=== PATIENT | male | born 1965 | race Asian ===

== ENCOUNTER 2020-04-27 08:20 | Day surgery (SDC) | payer SELFPAY ==
[2020-04-27] MEDS ORDERED: propofoL 200 MG/20 ML VIAL ONE (08:53)
[2020-04-27] MEDS ORDERED: LIDOCAINE 2% 100MG/5ML SDV (FOR ANES.) ONE (08:53)
--- NOTE | 2020-06-02 11:33 | ROOR ---
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 Inpatient 2. Inpatient Requesting Provider: Medicines: Monitored Anesthesia Care Complications: No immediate complications. Procedure: Pre-Anesthesia Assessment: - The heart rate, respiratory rate, oxygen saturations, blood pressure, adequacy of pulmonary ventilation, and response to care were monitored throughout the procedure. The Endoscope was introduced through the mouth, and advanced to the second part of duodenum. The upper GI endoscopy was accomplished without difficulty. The patient tolerated the procedure well. Findings: The examined esophagus was normal. The entire examined stomach was normal. One non-obstructing non-bleeding cratered duodenal ulcer with pigmented material was found in the second portion of the duodenum. The lesion was 10 mm in largest dimension. There is no evidence of perforation. This was biopsied with a cold forceps for histology. Impression: - Normal esophagus. - Normal stomach. - Large deeply cratered Non-obstructing non-bleeding duodenal ulcer with pigmented material/stigmata of recent bleeding. There is no evidence of perforation. Biopsied. - (metallic spiral wire protruding from center of ulcer bed--History or recent endovascular ablation of this ulcer) Recommendation: - Use a proton pump inhibitor PO daily indefinitely. - (Pt with previous lifethreatening complication of ulcer diasease/DU bleed--He should be on PPI therapy indefinitely, unless has allergies/intolerance. Less desirable: Use High dose [id number] BID-TID). - Await pathology results. George Diaz MD George DIAZ MD 04/27/2020 3:40:55 PM Number of Addenda: 0 Note Initiated On: 04/27/2020 3:15 PM Estimated Blood Loss: Estimated blood loss: none.
--- NOTE | 2020-06-02 11:33 | ROOR ---
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 Procedure: Pre-Anesthesia Assessment: - The heart rate, respiratory rate, oxygen saturations, blood pressure, adequacy of pulmonary ventilation, and response to care were monitored throughout the procedure. The Colonoscope was introduced through the anus and advanced to the terminal ileum, with identification of the appendiceal orifice and IC valve. The colonoscopy was performed without difficulty. The patient tolerated the procedure well. The quality of the bowel preparation was good. Findings: The perianal and digital rectal examinations were normal. A diffuse area of mild melanosis was found in the entire colon. Eight sessile polyps were found in the sigmoid colon, descending colon and splenic flexure. The polyps were small in size. These polyps were removed with a cold snare. Resection and retrieval were complete. Internal hemorrhoids were found during retroflexion. The hemorrhoids were moderate. The exam was otherwise without abnormality on direct and retroflexion views. Impression: - Melanosis in the colon. - Eight small polyps in the sigmoid colon, in the descending colon and at the splenic flexure, removed with a cold snare. Resected and retrieved. - Internal hemorrhoids. - The examination was otherwise normal on direct and retroflexion views. Recommendation: - Repeat colonoscopy in 3 years for surveillance. - Telephone endoscopist for pathology results in 2 weeks. George PORTILLO MD 04/27/2020 9:36:59 AM Number of Addenda: 0 Note Initiated On: 04/27/2020 7:33 AM Estimated Blood Loss: Estimated blood loss: none.
== END 2020-04-27 10:25 | disposition home or self-care (01) ==
LOC: M SDC 08:20
PROVIDERS: ATTEND Internal Medicine Gastroenterology
DX: D12.4 Benign neoplasm of descending colon (principal); D12.5 Benign neoplasm of sigmoid colon; K92.1 Melena; D62 Acute posthemorrhagic anemia; Z79.899 Other long term (current) drug therapy; Z91.013 Allergy to seafood; Z91.041 Radiographic dye allergy status

== ENCOUNTER 2020-10-29 12:53 | Emergency (ER) | payer OTHER, SELFPAY ==
[~2020-10-29] VITALS: Ht 162.6 cm; Wt 81.8 kg
[2020-10-29] MEDS ORDERED: TIZA4CAP PO (13:13)
[2020-10-29] MEDS ORDERED: ACET-683 PO (13:13)
[2020-10-29] MEDS ORDERED: TRAZ1TAB11 PO ×2 (13:13)
--- NOTE | 2020-10-29 13:35 | REP ---
INDICATION: CHEST PAIN COMPARISON: None. TECHNIQUE: PA/Lateral FINDINGS: Lungs: Clear, no infiltrate. Heart: Normal in size. Mediastinum: Mediastinal silhouette unremarkable. Pleural angles: Unremarkable.. Bones and soft tissues: There are degenerative changes of the spine without compression deformity. There is mild elevation of the right hemidiaphragm. IMPRESSION: No acute pulmonary disease. <Electronically signed by Gilbert Dill > 10/29/20 [id number]
[2020-10-29 13:53] LABS: BASO # 0.1 10^3/uL (0.0-0.2); BASO % 0.5 % (0.0-1.0); EOS # 0.1 10^3/uL (0.0-0.5); EOS % 0.7 % (0.0-3.0); HEMATOCRIT 47.7 % (42.0-52.0); HEMOGLOBIN 16.2 g/dl (13.5-17.5); LYMPH # 0.9 10^3/uL (1.5-5.0); MEAN CORPUSCULAR HEMOGLOBIN 30.8 pg (27.0-33.0); MEAN CORPUSCULAR VOLUME 90.7 fl (80.0-96.0); MONO # 0.7 10^3/uL (0.0-0.8); MONO % 5.9 % (0.0-5.0); NEUTROPHILS # 9.8 10^3/uL (1.5-8.5); NEUTROPHILS % 84.6 % (36.0-66.0); PLATELET COUNT, AUTOMATED 281 10^3/uL (150-450); RED BLOOD COUNT 5.26 10^6/uL (4.30-6.10); WHITE BLOOD COUNT 11.5 10^3/uL (4.0-10.0)
[2020-10-29 14:03] LABS: INR 0.88; PROTHROMBIN TIME 12.1 SECONDS (12.5-14.3)
[2020-10-29 14:04] LABS: PARTIAL THROMBOPLASTIN TIME 33.5 SECONDS (24.2-38.5)
[2020-10-29 14:26] LABS: ALBUMIN 4.1 GM/DL (3.2-5.2); ALT/SGPT 86 U/L (12-78); BILIRUBIN,DIRECT < 0.1 MG/DL (0.0-0.2); BILIRUBIN,TOTAL 0.4 MG/DL (0.2-1.0); BLOOD UREA NITROGEN 15 MG/DL (7-18); CALCIUM LEVEL 9.1 MG/DL (8.5-10.1); CARBON DIOXIDE LEVEL 24 MEQ/L (21-32); CHLORIDE LEVEL 105 MEQ/L (98-107); CK-MB VALUE MASS 2.2 NG/ML (<3.6); CPK CREATINE PHOSPHOKINASE 3986 U/L (39-308); CREATININE FOR GFR 0.79 MG/DL (0.70-1.30); FREE T4 0.92 NG/DL (0.76-1.46); GLOMERULAR FILTRATION RATE > 60.0 (>56); GLUCOSE, FASTING 114 MG/DL (70-100); LIPASE 163 U/L (73-393); MB/CK RELATIVE INDEX 0.06 (< OR =4); SODIUM LEVEL 138 MEQ/L (136-145); TOTAL PROTEIN 7.2 GM/DL (6.4-8.2); TROPONIN I < 0.02 NG/ML (< 0.10)
[2020-10-29] MEDS ORDERED: GI COCKTAIL 50ML BTL(HYOSCYAMINE/MAALOX/LIDOCAINE VISCOUS)(1:3:1) PO ONE (15:00)
[2020-10-29] MEDS ORDERED: NS 1,000 ML IV ONE (15:00)
--- OUTSIDE RECORDS SUMMARY | 2020-10-29 15:48 | CCD ---
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 Active Not available meloxicam 15 mg tablet Take 1 tablet every day by oral route. Active Not available tizanidine one tablet by mouth Completed 05/29/2019 trazodone 50 mg tablet Take 1.5 tablets every day by oral route. Active Not available Tylenol 325 mg tablet Take 2 tablets 3 times a day by oral route as needed. Active Not available Zanaflex 4 mg tablet Take 1 tablet every 8 hours by oral route as needed. Active Not available Problems None recorded. Procedures Date Name Performed by Stomach Ulcer Excision Information not a vailable 12/31/2019 XR, Thoracic Spine [facility] [address] [place] [address] (Work [address]) 04/06/2020 MRI, Thoracic Spine, W/o Contrast [facility] [address] [place] [address] (Work Place) Results Lab Results None recorded. Past Encounters 08/10/2020 Lumbar Radiculopathy; Degeneration of Lumbar Intervertebral Disc; Degeneration of Lumbosacral Intervertebral Disc; Displacement of Lumbar Intervertebral Disc without Myelopathy; Intervertebral Disc Disorder; Spondylosis without Myelopathy; Lumbosacral Spondylosis without Myelopathy; Myofascial Pain; Pain in Thoracic Spine; Thoracic Radiculopathy; Thoracic Spondylosis without Myelopathy Christine Serna [employer]: [address], [place] [address], Ph. 07/29/2020 Lumbosacral Spondylosis without Myelopathy; Spondylosis without Myelopathy; Degeneration of Lumbar Intervertebral Disc; Degeneration of Lumbosacral Intervertebral Disc; Displacement of Lumbar Intervertebral Disc without Myelopathy; Lumbar Radiculopathy; Intervertebral Disc Disorder; Myofascial Pain; Pain in Thoracic Spine; Thoracic Radiculopathy; Thoracic Spondylosis without Myelopathy Pepito Griffiths MD: [id number] [address], Ph. 07/15/2020 Thoracic Spondylosis without Myelopathy; Lumbar Radiculopathy; Degeneration of Lumbar Intervertebral Disc; Degeneration of Lumbosacral Intervertebral Disc; Displacement of Lumbar Intervertebral Disc without Myelopathy; Intervertebral Disc Disorder; Spondylosis without Myelopathy; Lumbosacral Spondylosis without Myelopathy; Myofascial Pain; Thoracic Radiculopathy Pepito Griffiths MD: [id number] [address], Ph. 07/01/2020 Lumbosacral Spondylosis without Myelopathy; Spondylosis without Myelopathy; Degeneration of Lumbar Intervertebral Disc; Degeneration of Lumbosacral Intervertebral Disc; Displacement of Lumbar Intervertebral Disc without Myelopathy; Lumbar Radiculopathy; Intervertebral Disc Disorder; Myofascial Pain; Pain in Thoracic Spine; Thoracic Radiculopathy; Thoracic Spondylosis without Myelopathy Pepito Griffiths MD: [address] [address], Ph. 06/24/2020 Lumbar Radiculopathy; Degeneration of Lumbar Intervertebral Disc; Degeneration of Lumbosacral Intervertebral Disc; Displacement of Lumbar Intervertebral Disc without Myelopathy; Intervertebral Disc Disorder; Spondylosis without Myelopathy; Lumbosacral Spondylosis without Myelopathy; Myofascial Pain; Pain in Thoracic Spine; Thoracic Radiculopathy; Thoracic Spondylosis without Myelopathy Christine Serna NP: [id number] [address], [place] [address], Ph. 05/13/2020 Lumbar Radiculopathy; Degeneration of Lumbar Intervertebral Disc; Degeneration of Lumbosacral Intervertebral Disc; Displacement of Lumbar Intervertebral Disc without Myelopathy; Intervertebral Disc Disorder; Spondylosis without Myelopathy; Lumbosacral Spondylosis without Myelopathy; Myofascial Pain; Pain in Thoracic Spine; Thoracic Radiculopathy; Thoracic Spondylosis without Myelopathy Christine Serna, [employer]: [address] [address], Ph. 04/28/2020 Thoracic Spondylosis without Myelopathy; Lumbar Radiculopathy; Degeneration of Lumbar Intervertebral Disc; Degeneration of Lumbosacral Intervertebral Disc; Displacement of Lumbar Intervertebral Disc without Myelopathy; Intervertebral Disc Disorder; Spondylosis without Myelopathy; Lumbosacral Spondylosis without Myelopathy; Myofascial Pain; Thoracic Radiculopathy Pepito Griffiths MD: [address] [address], Ph. 04/06/2020 Lumbar Radiculopathy; Degeneration of Lumbar Intervertebral Disc; Degeneration of Lumbosacral Intervertebral Disc; Displacement of Lumbar Intervertebral Disc without Myelopathy; Intervertebral Disc Disorder; Spondylosis without Myelopathy; Lumbosacral Spondylosis without Myelopathy; Myofascial Pain; Pain in Thoracic Spine; Thoracic Radiculopathy; Thoracic Spondylosis without Myelopathy Christine Doddlaura, [employer]: [address] [address], Ph. 03/23/2020 Myofascial Pain; Lumbar Radiculopathy; Degeneration of Lumbar Intervertebral Disc; Degeneration of Lumbosacral Intervertebral Disc; Displacement of Lumbar Intervertebral Disc without Myelopathy; Intervertebral Disc Disorder; Spondylosis without Myelopathy; Lumbosacral Spondylosis without Myelopathy; Pain in Thoracic Spine; Degeneration of Thoracic Intervertebral Disc; Thoracic Spondylosis without Myelopathy Pepito Griffiths MD: [id number] [address], [place] [address], Ph. 01/14/2020 Lumbar Radiculopathy; Degeneration of Lumbar Intervertebral Disc; Degeneration of Lumbosacral Intervertebral Disc; Displacement of Lumbar Intervertebral Disc without Myelopathy; Intervertebral Disc Disorder; Spondylosis without Myelopathy; Lumbosacral Spondylosis without Myelopathy; Myofascial Pain; Pain in Thoracic Spine Christine Serna, [employer]: [id number] [address], Ph. 12/31/2019 Lumbar Radiculopathy; Degeneration of Lumbar Intervertebral Disc; Degeneration of Lumbosacral Intervertebral Disc; Displacement of Lumbar Intervertebral Disc without Myelopathy; Intervertebral Disc Disorder; Spondylosis without Myelopathy; Lumbosacral Spondylosis without Myelopathy; Myofascial Pain; Pain in Thoracic Spine Christine Serna, [employer]: [id number] [address], Ph. 11/25/2019 Myofascial Pain; Lumbar Radiculopathy; Degeneration of Lumbar Intervertebral Disc; Degeneration of Lumbosacral Intervertebral Disc; Displacement of Lumbar Intervertebral Disc without Myelopathy; Intervertebral Disc Disorder; Spondylosis without Myelopathy; Lumbosacral Spondylosis without Myelopathy Pepito Griffiths MD: [id number] [address], Ph. 10/28/2019 Lumbar Radiculopathy; Degeneration of Lumbar Intervertebral Disc; Degeneration of Lumbosacral Intervertebral Disc; Displacement of Lumbar Intervertebral Disc without Myelopathy; Intervertebral Disc Disorder; Spondylosis without Myelopathy; Lumbosacral Spondylosis without Myelopathy; Myofascial Pain Christienmisael Serna, [employer]: [address] [address], Ph. 09/30/2019 Lumbar Radiculopathy; Degeneration of Lumbar Intervertebral Disc; Degeneration of Lumbosacral Intervertebral Disc; Displacement of Lumbar Intervertebral Disc without Myelopathy; Intervertebral Disc Disorder; Spondylosis without Myelopathy; Lumbosacral Spondylosis without Myelopathy; Myofascial Pain Pepito Griffiths MD: [address] [address], Ph. 09/09/2019 Lumbar Radiculopathy; Degeneration of Lumbar Intervertebral Disc; Degeneration of Lumbosacral Intervertebral Disc; Displacement of Lumbar Intervertebral Disc without Myelopathy; Intervertebral Disc Disorder; Spondylosis without Myelopathy; Lumbosacral Spondylosis without Myelopathy; Myofascial Pain Christine Serna, [employer]: [address] [address], Ph. 07/29/2019 Lumbar Radiculopathy; Degeneration of Lumbar Intervertebral Disc; Degeneration of Lumbosacral Intervertebral Disc; Displacement of Lumbar Intervertebral Disc without Myelopathy; Intervertebral Disc Disorder; Spondylosis without Myelopathy; Lumbosacral Spondylosis without Myelopathy; Myofascial Pain Pepito Griffiths MD: [id number] [address], Ph. 07/02/2019 Lumbar Radiculopathy; Degeneration of Lumbar Intervertebral Disc; Degeneration of Lumbosacral Intervertebral Disc; Displacement of Lumbar Intervertebral Disc without Myelopathy; Intervertebral Disc Disorder; Spondylosis without Myelopathy; Lumbosacral Spondylosis without Myelopathy; Myofascial Pain Christine Serna, [employer]: [address] [address], Ph. 06/12/2019 Lumbar Radiculopathy; Degeneration of Lumbar Intervertebral Disc; Degeneration of Lumbosacral Intervertebral Disc; Displacement of Lumbar Intervertebral Disc without Myelopathy; Intervertebral Disc Disorder; Spondylosis without Myelopathy; Lumbosacral Spondylosis without Myelopathy Pepito Griffiths MD: [id number] [address], [place] [address], Ph. 05/29/2019 Lumbar Radiculopathy; Degeneration of Lumbar Intervertebral Disc; Degeneration of Lumbosacral Intervertebral Disc; Displacement of Lumbar Intervertebral Disc without Myelopathy; Intervertebral Disc Disorder; Spondylosis without Myelopathy; Lumbosacral Spondylosis without Myelopathy Pepito Griffiths MD: [address] [address], Ph. 05/14/2019 Lumbar Radiculopathy; Degeneration of Lumbar Intervertebral Disc; Degeneration of Lumbosacral Intervertebral Disc; Displacement of Lumbar Intervertebral Disc without Myelopathy; Intervertebral Disc Disorder; Spondylosis without Myelopathy; Lumbosacral Spondylosis without Myelopathy Pepito Griffiths MD: [id number] [facility] [address], [facility] [place] [address], Ph. 04/29/2019 Lumbar Radiculopathy; Degeneration of Lumbar Intervertebral Disc; Degeneration of Lumbosacral Intervertebral Disc; Displacement of Lumbar Intervertebral Disc without Myelopathy; Intervertebral Disc Disorder; Spondylosis without Myelopathy; Lumbosacral Spondylosis without Myelopathy Pepito Griffiths MD: [id number] [facility] [address], [facility] [place] [address], Ph. Social History Tobacco Smoking Status Former Smoker Notes: quit 1996 Vaccine List None recorded. Plan of Care Reminders Provider Appointments None recorded. Lab None recorded. Referral None recorded. Procedures None recorded. Surgeries None recorded. Imaging None recorded. Vitals 08/10/2020 04:15PM FOLLOW-UP Height Blood Pressure 5 ft 4 in 153/99 mm[Hg] 06/24/2020 04:00PM FOLLOW-UP Height Blood Pressure 5 ft 4 in 134/89 mm[Hg] 05/13/2020 04:00PM FOLLOW-UP Height Blood Pressure 5 ft 4 in 134/90 mm[Hg] 04/06/2020 04:00PM FOLLOW-UP Height Blood Pressure 5 ft 4 in 122/82 mm[Hg] 03/23/2020 03:00PM Trigger point injections Height 5 ft 4 in 01/14/2020 04:30PM FOLLOW-UP Height Weight BMI Blood Pressure 5 ft 4 in 187 lbs 32.1 kg/m2 118/84 mm[Hg] 12/31/2019 04:15PM Telehealth Height 5 ft 4 in 10/28/2019 04:30PM FOLLOW-UP Height Blood Pressure 5 ft 4 in 157/84 mm[Hg] 09/09/2019 04:30PM FOLLOW-UP Height Weight BMI Blood Pressure 5 ft 4 in 187 lbs 32.1 kg/m2 134/81 mm[Hg] 07/02/2019 04:00PM FOLLOW-UP Height Blood Pressure 5 ft 4 in 138/94 mm[Hg] 04/29/2019 11:30AM NEW PATIENT Height Weight BMI Blood Pressure 5 ft 4 in 187 lbs 32.1 kg/m2 123/79 mm[Hg]
--- OUTSIDE RECORDS SUMMARY | 2020-10-29 15:48 | CCD ---
Author Organization Unknown Address [address] [place] [address] Phone [phone] Care Team Providers Care Barrel Centerer Name Role Phone [facility] 3 [phone] Allergies Code Code System Name Reaction [...] not a vailable 12/31/2019 XR, Thoracic Spine [facility] [address] [place] [address] (Work Place) 04/06/2020 MRI, Thoracic Spine, W/o Contrast [facility] [address] [place] [address] (Work Place) Results Lab Results None recorded. Past Encounters 08/26/2020 Lumbosacral Spondylosis without Myelopathy; Spondylosis without Myelopathy; Degeneration of Lumbar Intervertebral Disc; Degeneration of Lumbosacral Intervertebral Disc; Displacement of Lumbar Intervertebral Disc without Myelopathy; Intervertebral Disc Disorder; Lumbar Radiculopathy; Myofascial Pain; Pain in Thoracic Spine; Thoracic Radiculopathy; Thoracic Spondylosis without Myelopathy Pepito Griffiths MD: [address] [address], [place] [address], Ph. 08/17/2020 Myofascial Pain; Lumbar Radiculopathy; Degeneration of Lumbar Intervertebral Disc; Degeneration of Lumbosacral Intervertebral Disc; Displacement of Lumbar Intervertebral Disc without Myelopathy; Intervertebral Disc Disorder; Spondylosis without Myelopathy; Lumbosacral Spondylosis without Myelopathy; Pain in Thoracic Spine; Thoracic Radiculopathy; Thoracic Spondylosis without Myelopathy Pepito Griffiths MD: [id number] [address], Ph. 08/10/2020 Lumbar Radiculopathy; Degeneration of Lumbar Intervertebral Disc; Degeneration of Lumbosacral Intervertebral Disc; Displacement of Lumbar Intervertebral Disc without Myelopathy; Intervertebral Disc Disorder; Spondylosis without Myelopathy; Lumbosacral Spondylosis without Myelopathy; Myofascial Pain; Pain in Thoracic Spine; Thoracic Radiculopathy; Thoracic Spondylosis without Myelopathy Christine Serna NP: [id number] [address], Ph. 07/29/2020 Lumbosacral Spondylosis without Myelopathy; Spondylosis without Myelopathy; Degeneration of Lumbar Intervertebral Disc; Degeneration of Lumbosacral Intervertebral Disc; Displacement of Lumbar Intervertebral Disc without Myelopathy; Lumbar Radiculopathy; Intervertebral Disc Disorder; Myofascial Pain; Pain in Thoracic Spine; Thoracic Radiculopathy; Thoracic Spondylosis without Myelopathy Pepito Griffiths MD: [address] [address], Ph. 07/15/2020 Thoracic Spondylosis without Myelopathy; Lumbar Radiculopathy; Degeneration of Lumbar Intervertebral Disc; Degeneration of Lumbosacral Intervertebral Disc; Displacement of Lumbar Intervertebral Disc without Myelopathy; Intervertebral Disc Disorder; Spondylosis without Myelopathy; Lumbosacral Spondylosis without Myelopathy; Myofascial Pain; Thoracic Radiculopathy Pepito Griffiths MD: [address] [address], Ph. 07/01/2020 Lumbosacral Spondylosis without Myelopathy; Spondylosis without Myelopathy; Degeneration of Lumbar Intervertebral Disc; Degeneration of Lumbosacral Intervertebral Disc; Displacement of Lumbar Intervertebral Disc without Myelopathy; Lumbar Radiculopathy; Intervertebral Disc Disorder; Myofascial Pain; Pain in Thoracic Spine; Thoracic Radiculopathy; Thoracic Spondylosis without Myelopathy Pepito Griffiths MD: [address] [address], Ph. 06/24/2020 Lumbar Radiculopathy; Degeneration of Lumbar Intervertebral Disc; Degeneration of Lumbosacral Intervertebral Disc; Displacement of Lumbar Intervertebral Disc without Myelopathy; Intervertebral Disc Disorder; Spondylosis without Myelopathy; Lumbosacral Spondylosis without Myelopathy; Myofascial Pain; Pain in Thoracic Spine; Thoracic Radiculopathy; Thoracic Spondylosis without Myelopathy Christine Serna REALTIME REPORTER: [address] [address], Ph. 05/13/2020 Lumbar Radiculopathy; Degeneration of Lumbar Intervertebral Disc; Degeneration of Lumbosacral Intervertebral Disc; Displacement of Lumbar Intervertebral Disc without Myelopathy; Intervertebral Disc Disorder; Spondylosis without Myelopathy; Lumbosacral Spondylosis without Myelopathy; Myofascial Pain; Pain in Thoracic Spine; Thoracic Radiculopathy; Thoracic Spondylosis without Myelopathy Christine Serna REALTIME REPORTER: [id number] [address], Ph. 04/28/2020 Thoracic Spondylosis without Myelopathy; Lumbar Radiculopathy; Degeneration of Lumbar Intervertebral Disc; Degeneration of Lumbosacral Intervertebral Disc; Displacement of Lumbar Intervertebral Disc without Myelopathy; Intervertebral Disc Disorder; Spondylosis without Myelopathy; Lumbosacral Spondylosis without Myelopathy; Myofascial Pain; Thoracic Radiculopathy Pepito Griffiths MD: [address] [address], [place] [address], Ph. 04/06/2020 Lumbar Radiculopathy; Degeneration of Lumbar Intervertebral Disc; Degeneration of Lumbosacral Intervertebral Disc; Displacement of Lumbar Intervertebral Disc without Myelopathy; Intervertebral Disc Disorder; Spondylosis without Myelopathy; Lumbosacral Spondylosis without Myelopathy; Myofascial Pain; Pain in Thoracic Spine; Thoracic Radiculopathy; Thoracic Spondylosis without Myelopathy Christine Serna REALTIME REPORTER: [id number] [address], Ph. 03/23/2020 Myofascial Pain; Lumbar Radiculopathy; Degeneration of Lumbar Intervertebral Disc; Degeneration of Lumbosacral Intervertebral Disc; Displacement of Lumbar Intervertebral Disc without Myelopathy; Intervertebral Disc Disorder; Spondylosis without Myelopathy; Lumbosacral Spondylosis without Myelopathy; Pain in Thoracic Spine; Degeneration of Thoracic Intervertebral Disc; Thoracic Spondylosis without Myelopathy Pepito Griffiths MD: [address] [address], Ph. 01/14/2020 Lumbar Radiculopathy; Degeneration of Lumbar Intervertebral Disc; Degeneration of Lumbosacral Intervertebral Disc; Displacement of Lumbar Intervertebral Disc without Myelopathy; Intervertebral Disc Disorder; Spondylosis without Myelopathy; Lumbosacral Spondylosis without Myelopathy; Myofascial Pain; Pain in Thoracic Spine Christine Rachid Kareem REALTIME REPORTER: [id number] [address], Ph. 12/31/2019 Lumbar Radiculopathy; Degeneration of Lumbar Intervertebral Disc; Degeneration of Lumbosacral Intervertebral Disc; Displacement of Lumbar Intervertebral Disc without Myelopathy; Intervertebral Disc Disorder; Spondylosis without Myelopathy; Lumbosacral Spondylosis without Myelopathy; Myofascial Pain; Pain in Thoracic Spine Christinehiram Rashid Kareem REALTIME REPORTER: [address] [address], Ph. 11/25/2019 Myofascial Pain; Lumbar Radiculopathy; Degeneration of Lumbar Intervertebral Disc; Degeneration of Lumbosacral Intervertebral Disc; Displacement of Lumbar Intervertebral Disc without Myelopathy; Intervertebral Disc Disorder; Spondylosis without Myelopathy; Lumbosacral Spondylosis without Myelopathy Pepito Griffiths MD: [address] [address], Ph. 10/28/2019 Lumbar Radiculopathy; Degeneration of Lumbar Intervertebral Disc; Degeneration of Lumbosacral Intervertebral Disc; Displacement of Lumbar Intervertebral Disc without Myelopathy; Intervertebral Disc Disorder; Spondylosis without Myelopathy; Lumbosacral Spondylosis without Myelopathy; Myofascial Pain Christine Serna, REALTIME REPORTER: [id number] [address], Ph. 09/30/2019 Lumbar Radiculopathy; Degeneration of Lumbar Intervertebral Disc; Degeneration of Lumbosacral Intervertebral Disc; Displacement of Lumbar Intervertebral Disc without Myelopathy; Intervertebral Disc Disorder; Spondylosis without Myelopathy; Lumbosacral Spondylosis without Myelopathy; Myofascial Pain Pepito Griffiths MD: [address] [address], Ph. 09/09/2019 Lumbar Radiculopathy; Degeneration of Lumbar Intervertebral Disc; Degeneration of Lumbosacral Intervertebral Disc; Displacement of Lumbar Intervertebral Disc without Myelopathy; Intervertebral Disc Disorder; Spondylosis without Myelopathy; Lumbosacral Spondylosis without Myelopathy; Myofascial Pain Christine Serna REALTIME REPORTER: [id number] [address], Ph. 07/29/2019 Lumbar Radiculopathy; Degeneration of Lumbar Intervertebral Disc; Degeneration of Lumbosacral Intervertebral Disc; Displacement of Lumbar Intervertebral Disc without Myelopathy; Intervertebral Disc Disorder; Spondylosis without Myelopathy; Lumbosacral Spondylosis without Myelopathy; Myofascial Pain Pepito Griffiths MD: [address] [address], Ph. 07/02/2019 Lumbar Radiculopathy; Degeneration of Lumbar Intervertebral Disc; Degeneration of Lumbosacral Intervertebral Disc; Displacement of Lumbar Intervertebral Disc without Myelopathy; Intervertebral Disc Disorder; Spondylosis without Myelopathy; Lumbosacral Spondylosis without Myelopathy; Myofascial Pain Christine Serna, REALTIME REPORTER: [address] [address], [place] [address], Ph. 06/12/2019 Lumbar Radiculopathy; Degeneration of Lumbar Intervertebral Disc; Degeneration of Lumbosacral Intervertebral Disc; Displacement of Lumbar Intervertebral Disc without Myelopathy; Intervertebral Disc Disorder; Spondylosis without Myelopathy; Lumbosacral Spondylosis without Myelopathy Pepito Griffiths MD: [address] [address], Ph. 05/29/2019 Lumbar Radiculopathy; Degeneration of Lumbar Intervertebral Disc; Degeneration of Lumbosacral Intervertebral Disc; Displacement of Lumbar Intervertebral Disc without Myelopathy; Intervertebral Disc Disorder; Spondylosis without Myelopathy; Lumbosacral Spondylosis without Myelopathy Pepito Griffiths MD: [address] [address], Ph. 05/14/2019 Lumbar Radiculopathy; Degeneration of Lumbar Intervertebral Disc; Degeneration of Lumbosacral Intervertebral Disc; Displacement of Lumbar Intervertebral Disc without Myelopathy; Intervertebral Disc Disorder; Spondylosis without Myelopathy; Lumbosacral Spondylosis without Myelopathy Pepito Griffiths MD: [address] [address], Ph. 04/29/2019 Lumbar Radiculopathy; Degeneration of Lumbar Intervertebral Disc; Degeneration of Lumbosacral Intervertebral Disc; Displacement of Lumbar Intervertebral Disc without Myelopathy; Intervertebral Disc Disorder; Spondylosis without Myelopathy; Lumbosacral Spondylosis without Myelopathy Pepito Griffiths MD: [address] [address], Ph. Social History Tobacco Smoking Status Former Smoker Notes: quit 1996 Vaccine List None recorded. Plan of Care Reminders Provider Appointments None recorded. Lab None recorded. Referral None recorded. Procedures None recorded. Surgeries None recorded. Imaging None recorded. Vitals 08/17/2020 04:00PM Trigger point injections Height 5 ft 4 in 08/10/2020 04:15PM FOLLOW-UP Height Blood Pressure 5 [...]
--- OUTSIDE RECORDS SUMMARY | 2020-10-29 15:48 | CCD ---
Author Organization Unknown Address [address] [place] [address] Phone [phone] Care Team Providers Care Railway Track Worker Name Role Phone [facility] [[email or web address]] 3 [phone] Allergies Code Code System Name Reaction [...] not a vailable 12/31/2019 XR, Thoracic Spine [facility] [address] [place] [address] (Work [address]) 04/06/2020 MRI, Thoracic Spine, W/o Contrast [facility] [address] [place] [address] (Work Place) Results Lab Results None recorded. Past Encounters 08/17/2020 Myofascial Pain; Lumbar Radiculopathy; Degeneration of Lumbar Intervertebral Disc; Degeneration of Lumbosacral Intervertebral Disc; Displacement of Lumbar Intervertebral Disc without Myelopathy; Intervertebral Disc Disorder; Spondylosis without Myelopathy; Lumbosacral Spondylosis without Myelopathy; Pain in Thoracic Spine; Thoracic Radiculopathy; Thoracic Spondylosis without Myelopathy Pepito Griffiths MD: [address] [address], [place] [address], Ph. 08/10/2020 Lumbar Radiculopathy; Degeneration of Lumbar Intervertebral Disc; Degeneration of Lumbosacral Intervertebral Disc; Displacement of Lumbar Intervertebral Disc without Myelopathy; Intervertebral Disc Disorder; Spondylosis without Myelopathy; Lumbosacral Spondylosis without Myelopathy; Myofascial Pain; Pain in Thoracic Spine; Thoracic Radiculopathy; Thoracic Spondylosis without Myelopathy Christine Serna NP: [address] [address], Ph. 07/29/2020 Lumbosacral Spondylosis without Myelopathy; Spondylosis without Myelopathy; Degeneration of Lumbar Intervertebral Disc; Degeneration of Lumbosacral Intervertebral Disc; Displacement of Lumbar Intervertebral Disc without Myelopathy; Lumbar Radiculopathy; Intervertebral Disc Disorder; Myofascial Pain; Pain in Thoracic Spine; Thoracic Radiculopathy; Thoracic Spondylosis without Myelopathy Pepito Griffiths MD: [address] [address], Ph. 07/15/2020 Thoracic Spondylosis without Myelopathy; Lumbar Radiculopathy; Degeneration of Lumbar Intervertebral Disc; Degeneration of Lumbosacral Intervertebral Disc; Displacement of Lumbar Intervertebral Disc without Myelopathy; Intervertebral Disc Disorder; Spondylosis without Myelopathy; Lumbosacral Spondylosis without Myelopathy; Myofascial Pain; Thoracic Radiculopathy Pepito Griffiths MD: [address] [address], Ph. 07/01/2020 Lumbosacral Spondylosis without Myelopathy; Spondylosis without Myelopathy; Degeneration of Lumbar Intervertebral Disc; Degeneration of Lumbosacral Intervertebral Disc; Displacement of Lumbar Intervertebral Disc without Myelopathy; Lumbar Radiculopathy; Intervertebral Disc Disorder; Myofascial Pain; Pain in Thoracic Spine; Thoracic Radiculopathy; Thoracic Spondylosis without Myelopathy Pepito Griffiths MD: [address] [address], Ph. 06/24/2020 Lumbar Radiculopathy; Degeneration of Lumbar Intervertebral Disc; Degeneration of Lumbosacral Intervertebral Disc; Displacement of Lumbar Intervertebral Disc without Myelopathy; Intervertebral Disc Disorder; Spondylosis without Myelopathy; Lumbosacral Spondylosis without Myelopathy; Myofascial Pain; Pain in Thoracic Spine; Thoracic Radiculopathy; Thoracic Spondylosis without Myelopathy Christine Serna NP: [id number] [address], Ph. 05/13/2020 Lumbar Radiculopathy; Degeneration of Lumbar Intervertebral Disc; Degeneration of Lumbosacral Intervertebral Disc; Displacement of Lumbar Intervertebral Disc without Myelopathy; Intervertebral Disc Disorder; Spondylosis without Myelopathy; Lumbosacral Spondylosis without Myelopathy; Myofascial Pain; Pain in Thoracic Spine; Thoracic Radiculopathy; Thoracic Spondylosis without Myelopathy Chritsine Serna METALWORKING SPECIALIST: [address] [address], Ph. 04/28/2020 Thoracic Spondylosis without Myelopathy; Lumbar Radiculopathy; Degeneration of Lumbar Intervertebral Disc; Degeneration of Lumbosacral Intervertebral Disc; Displacement of Lumbar Intervertebral Disc without Myelopathy; Intervertebral Disc Disorder; Spondylosis without Myelopathy; Lumbosacral Spondylosis without Myelopathy; Myofascial Pain; Thoracic Radiculopathy Pepito Griffiths MD: [address] [address], Ph. 04/06/2020 Lumbar Radiculopathy; Degeneration of Lumbar Intervertebral Disc; Degeneration of Lumbosacral Intervertebral Disc; Displacement of Lumbar Intervertebral Disc without Myelopathy; Intervertebral Disc Disorder; Spondylosis without Myelopathy; Lumbosacral Spondylosis without Myelopathy; Myofascial Pain; Pain in Thoracic Spine; Thoracic Radiculopathy; Thoracic Spondylosis without Myelopathy Christine Serna NP: [id number] [address], [place] [address], Ph. 03/23/2020 Myofascial Pain; Lumbar Radiculopathy; Degeneration of Lumbar Intervertebral Disc; Degeneration of Lumbosacral Intervertebral Disc; Displacement of Lumbar Intervertebral Disc without Myelopathy; Intervertebral Disc Disorder; Spondylosis without Myelopathy; Lumbosacral Spondylosis without Myelopathy; Pain in Thoracic Spine; Degeneration of Thoracic Intervertebral Disc; Thoracic Spondylosis without Myelopathy Pepito Griffiths MD: [address] [address], Ph. 01/14/2020 Lumbar Radiculopathy; Degeneration of Lumbar Intervertebral Disc; Degeneration of Lumbosacral Intervertebral Disc; Displacement of Lumbar Intervertebral Disc without Myelopathy; Intervertebral Disc Disorder; Spondylosis without Myelopathy; Lumbosacral Spondylosis without Myelopathy; Myofascial Pain; Pain in Thoracic Spine Christine Serna NP: [id number] [address], Ph. 12/31/2019 Lumbar Radiculopathy; Degeneration of Lumbar Intervertebral Disc; Degeneration of Lumbosacral Intervertebral Disc; Displacement of Lumbar Intervertebral Disc without Myelopathy; Intervertebral Disc Disorder; Spondylosis without Myelopathy; Lumbosacral Spondylosis without Myelopathy; Myofascial Pain; Pain in Thoracic Spine Christine Serna METALWORKING SPECIALIST: [address] [address], Ph. 11/25/2019 Myofascial Pain; Lumbar Radiculopathy; Degeneration of Lumbar Intervertebral Disc; Degeneration of Lumbosacral Intervertebral Disc; Displacement of Lumbar Intervertebral Disc without Myelopathy; Intervertebral Disc Disorder; Spondylosis without Myelopathy; Lumbosacral Spondylosis without Myelopathy Pepito Griffiths MD: [address] [address], Ph. 10/28/2019 Lumbar Radiculopathy; Degeneration of Lumbar Intervertebral Disc; Degeneration of Lumbosacral Intervertebral Disc; Displacement of Lumbar Intervertebral Disc without Myelopathy; Intervertebral Disc Disorder; Spondylosis without Myelopathy; Lumbosacral Spondylosis without Myelopathy; Myofascial Pain Christine Serna METALWORKING SPECIALIST: [address] [address], Ph. 09/30/2019 Lumbar Radiculopathy; Degeneration of Lumbar Intervertebral Disc; Degeneration of Lumbosacral Intervertebral Disc; Displacement of Lumbar Intervertebral Disc without Myelopathy; Intervertebral Disc Disorder; Spondylosis without Myelopathy; Lumbosacral Spondylosis without Myelopathy; Myofascial Pain Pepito Griffiths MD: [address] [address], Ph. 09/09/2019 Lumbar Radiculopathy; Degeneration of Lumbar Intervertebral Disc; Degeneration of Lumbosacral Intervertebral Disc; Displacement of Lumbar Intervertebral Disc without Myelopathy; Intervertebral Disc Disorder; Spondylosis without Myelopathy; Lumbosacral Spondylosis without Myelopathy; Myofascial Pain Christine Serna METALWORKING SPECIALIST: [address] [address], Ph. 07/29/2019 Lumbar Radiculopathy; Degeneration of Lumbar Intervertebral Disc; Degeneration of Lumbosacral Intervertebral Disc; Displacement of Lumbar Intervertebral Disc without Myelopathy; Intervertebral Disc Disorder; Spondylosis without Myelopathy; Lumbosacral Spondylosis without Myelopathy; Myofascial Pain Pepito Griffiths MD: [address] [address], Ph. 07/02/2019 Lumbar Radiculopathy; Degeneration of Lumbar Intervertebral Disc; Degeneration of Lumbosacral Intervertebral Disc; Displacement of Lumbar Intervertebral Disc without Myelopathy; Intervertebral Disc Disorder; Spondylosis without Myelopathy; Lumbosacral Spondylosis without Myelopathy; Myofascial Pain Christine Serna, METALWORKING SPECIALIST: [address] [address], Ph. 06/12/2019 Lumbar Radiculopathy; Degeneration of Lumbar Intervertebral Disc; Degeneration of Lumbosacral Intervertebral Disc; Displacement of Lumbar Intervertebral Disc without Myelopathy; Intervertebral Disc Disorder; Spondylosis without Myelopathy; Lumbosacral Spondylosis without Myelopathy Pepito Griffiths MD: [address], [place] [address], Ph. 05/29/2019 Lumbar Radiculopathy; Degeneration of Lumbar Intervertebral Disc; Degeneration of Lumbosacral Intervertebral Disc; Displacement of Lumbar Intervertebral Disc without Myelopathy; Intervertebral Disc Disorder; Spondylosis without Myelopathy; Lumbosacral Spondylosis without Myelopathy Pepito Griffiths MD: [address] [address], [place] [address], Ph. 05/14/2019 Lumbar Radiculopathy; Degeneration of Lumbar Intervertebral Disc; Degeneration of Lumbosacral Intervertebral Disc; Displacement of Lumbar Intervertebral Disc without Myelopathy; Intervertebral Disc Disorder; Spondylosis without Myelopathy; Lumbosacral Spondylosis without Myelopathy Pepito Griffiths MD: [address] [address], Ph. 04/29/2019 Lumbar Radiculopathy; Degeneration of Lumbar Intervertebral Disc; Degeneration of Lumbosacral Intervertebral Disc; Displacement of Lumbar Intervertebral Disc without Myelopathy; Intervertebral Disc Disorder; Spondylosis without Myelopathy; Lumbosacral Spondylosis without Myelopathy Pepito Griffiths MD: [address] [address], Ph. Social History Tobacco Smoking Status Former [...]
--- OUTSIDE RECORDS SUMMARY | 2020-10-29 15:48 | CCD ---
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 Past Encounters 08/17/2020 Myofascial Pain; Lumbar Radiculopathy; Degeneration of Lumbar Intervertebral Disc; Degeneration of Lumbosacral Intervertebral Disc; Displacement of Lumbar Intervertebral Disc without Myelopathy; Intervertebral Disc Disorder; Spondylosis without Myelopathy; Lumbosacral Spondylosis without Myelopathy; Pain in Thoracic Spine; Thoracic Radiculopathy; Thoracic Spondylosis without Myelopathy Pepito Griffiths MD: [id number] [address], [place] [address], Ph. 08/10/2020 Lumbar Radiculopathy; Degeneration of Lumbar Intervertebral Disc; Degeneration of Lumbosacral Intervertebral Disc; Displacement of Lumbar Intervertebral Disc without Myelopathy; Intervertebral Disc Disorder; Spondylosis without Myelopathy; Lumbosacral Spondylosis without Myelopathy; Myofascial Pain; Pain in Thoracic Spine; Thoracic Radiculopathy; Thoracic Spondylosis without Myelopathy Christine Serna NP: [id number] [address], Ph. 07/29/2020 Lumbosacral Spondylosis without Myelopathy; Spondylosis without Myelopathy; Degeneration of Lumbar Intervertebral Disc; Degeneration of Lumbosacral Intervertebral Disc; Displacement of Lumbar Intervertebral Disc without Myelopathy; Lumbar Radiculopathy; Intervertebral Disc Disorder; Myofascial Pain; Pain in Thoracic Spine; Thoracic Radiculopathy; Thoracic Spondylosis without Myelopathy Pepito Griffiths MD: [id number] [address], Ph. 07/15/2020 Thoracic Spondylosis without Myelopathy; Lumbar Radiculopathy; Degeneration of Lumbar Intervertebral Disc; Degeneration of Lumbosacral Intervertebral Disc; Displacement of Lumbar Intervertebral Disc without Myelopathy; Intervertebral Disc Disorder; Spondylosis without Myelopathy; Lumbosacral Spondylosis without Myelopathy; Myofascial Pain; Thoracic Radiculopathy Pepito Griffiths MD: [id number] [address], Ph. 07/01/2020 Lumbosacral Spondylosis without Myelopathy; Spondylosis without Myelopathy; Degeneration of Lumbar Intervertebral Disc; Degeneration of Lumbosacral Intervertebral Disc; Displacement of Lumbar Intervertebral Disc without Myelopathy; Lumbar Radiculopathy; Intervertebral Disc Disorder; Myofascial Pain; Pain in Thoracic Spine; Thoracic Radiculopathy; Thoracic Spondylosis without Myelopathy Pepito Griffiths MD: [id number] [address], Ph. 06/24/2020 Lumbar Radiculopathy; Degeneration of Lumbar Intervertebral Disc; Degeneration of Lumbosacral Intervertebral Disc; Displacement of Lumbar Intervertebral Disc without Myelopathy; Intervertebral Disc Disorder; Spondylosis without Myelopathy; Lumbosacral Spondylosis without Myelopathy; Myofascial Pain; Pain in Thoracic Spine; Thoracic Radiculopathy; Thoracic Spondylosis without Myelopathy Christine Serna NP: [id number] [address], Ph. 05/13/2020 Lumbar Radiculopathy; Degeneration of Lumbar Intervertebral Disc; Degeneration of Lumbosacral Intervertebral Disc; Displacement of Lumbar Intervertebral Disc without Myelopathy; Intervertebral Disc Disorder; Spondylosis without Myelopathy; Lumbosacral Spondylosis without Myelopathy; Myofascial Pain; Pain in Thoracic Spine; Thoracic Radiculopathy; Thoracic Spondylosis without Myelopathy Christine Serna NEGATIVE SPOTTER: [id number] [address], Ph. 04/28/2020 Thoracic Spondylosis without Myelopathy; Lumbar Radiculopathy; Degeneration of Lumbar Intervertebral Disc; Degeneration of Lumbosacral Intervertebral Disc; Displacement of Lumbar Intervertebral Disc without Myelopathy; Intervertebral Disc Disorder; Spondylosis without Myelopathy; Lumbosacral Spondylosis without Myelopathy; Myofascial Pain; Thoracic Radiculopathy Pepito Griffiths MD: [id number] [address], Ph. 04/06/2020 Lumbar Radiculopathy; Degeneration of Lumbar Intervertebral Disc; Degeneration of Lumbosacral Intervertebral Disc; Displacement of Lumbar Intervertebral Disc without Myelopathy; Intervertebral Disc Disorder; Spondylosis without Myelopathy; Lumbosacral Spondylosis without Myelopathy; Myofascial Pain; Pain in Thoracic Spine; Thoracic Radiculopathy; Thoracic Spondylosis without Myelopathy Christine Serna NP: [id number] [address], [place] [address], Ph. 03/23/2020 Myofascial Pain; Lumbar Radiculopathy; Degeneration of Lumbar Intervertebral Disc; Degeneration of Lumbosacral Intervertebral Disc; Displacement of Lumbar Intervertebral Disc without Myelopathy; Intervertebral Disc Disorder; Spondylosis without Myelopathy; Lumbosacral Spondylosis without Myelopathy; Pain in Thoracic Spine; Degeneration of Thoracic Intervertebral Disc; Thoracic Spondylosis without Myelopathy Pepito Griffiths MD: [id number] [address], Ph. 01/14/2020 Lumbar Radiculopathy; Degeneration of Lumbar Intervertebral Disc; Degeneration of Lumbosacral Intervertebral Disc; Displacement of Lumbar Intervertebral Disc without Myelopathy; Intervertebral Disc Disorder; Spondylosis without Myelopathy; Lumbosacral Spondylosis without Myelopathy; Myofascial Pain; Pain in Thoracic Spine Christine Serna NP: [id number] [address], Ph. 12/31/2019 Lumbar Radiculopathy; Degeneration of Lumbar Intervertebral Disc; Degeneration of Lumbosacral Intervertebral Disc; Displacement of Lumbar Intervertebral Disc without Myelopathy; Intervertebral Disc Disorder; Spondylosis without Myelopathy; Lumbosacral Spondylosis without Myelopathy; Myofascial Pain; Pain in Thoracic Spine Christine Serna NEGATIVE SPOTTER: [id number] [address], Ph. 11/25/2019 Myofascial Pain; Lumbar Radiculopathy; Degeneration of Lumbar Intervertebral Disc; Degeneration of Lumbosacral Intervertebral Disc; Displacement of Lumbar Intervertebral Disc without Myelopathy; Intervertebral Disc Disorder; Spondylosis without Myelopathy; Lumbosacral Spondylosis without Myelopathy Pepito Griffiths MD: [id number] [address], Ph. 10/28/2019 Lumbar Radiculopathy; Degeneration of Lumbar Intervertebral Disc; Degeneration of Lumbosacral Intervertebral Disc; Displacement of Lumbar Intervertebral Disc without Myelopathy; Intervertebral Disc Disorder; Spondylosis without Myelopathy; Lumbosacral Spondylosis without Myelopathy; Myofascial Pain Christine Serna NEGATIVE SPOTTER: [id number] [address], Ph. 09/30/2019 Lumbar Radiculopathy; Degeneration of Lumbar Intervertebral Disc; Degeneration of Lumbosacral Intervertebral Disc; Displacement of Lumbar Intervertebral Disc without Myelopathy; Intervertebral Disc Disorder; Spondylosis without Myelopathy; Lumbosacral Spondylosis without Myelopathy; Myofascial Pain Pepito Griffiths MD: [id number] [address], Ph. 09/09/2019 Lumbar Radiculopathy; Degeneration of Lumbar Intervertebral Disc; Degeneration of Lumbosacral Intervertebral Disc; Displacement of Lumbar Intervertebral Disc without Myelopathy; Intervertebral Disc Disorder; Spondylosis without Myelopathy; Lumbosacral Spondylosis without Myelopathy; Myofascial Pain Christine Serna NEGATIVE SPOTTER: [id number] [address], Ph. 07/29/2019 Lumbar Radiculopathy; Degeneration of Lumbar Intervertebral Disc; Degeneration of Lumbosacral Intervertebral Disc; Displacement of Lumbar Intervertebral Disc without Myelopathy; Intervertebral Disc Disorder; Spondylosis without Myelopathy; Lumbosacral Spondylosis without Myelopathy; Myofascial Pain Pepito Griffiths MD: [id number] [address], Ph. 07/02/2019 Lumbar Radiculopathy; Degeneration of Lumbar Intervertebral Disc; Degeneration of Lumbosacral Intervertebral Disc; Displacement of Lumbar Intervertebral Disc without Myelopathy; Intervertebral Disc Disorder; Spondylosis without Myelopathy; Lumbosacral Spondylosis without Myelopathy; Myofascial Pain Christine Serna, NEGATIVE SPOTTER: [id number] [address], Ph. 06/12/2019 Lumbar Radiculopathy; Degeneration of Lumbar Intervertebral Disc; Degeneration of Lumbosacral Intervertebral Disc; Displacement of Lumbar Intervertebral Disc without Myelopathy; Intervertebral Disc Disorder; Spondylosis without Myelopathy; Lumbosacral Spondylosis without Myelopathy Pepito Griffiths MD: [address], [place] [address], Ph. 05/29/2019 Lumbar Radiculopathy; Degeneration of Lumbar Intervertebral Disc; Degeneration of Lumbosacral Intervertebral Disc; Displacement of Lumbar Intervertebral Disc without Myelopathy; Intervertebral Disc Disorder; Spondylosis without Myelopathy; Lumbosacral Spondylosis without Myelopathy Pepito Griffiths MD: [address] [address], [place] [address], Ph. 05/14/2019 Lumbar Radiculopathy; Degeneration of Lumbar Intervertebral Disc; Degeneration of Lumbosacral Intervertebral Disc; Displacement of Lumbar Intervertebral Disc without Myelopathy; Intervertebral Disc Disorder; Spondylosis without Myelopathy; Lumbosacral Spondylosis without Myelopathy Pepito Griffiths MD: [address] [address], Ph. 04/29/2019 Lumbar Radiculopathy; Degeneration of Lumbar Intervertebral Disc; Degeneration of Lumbosacral Intervertebral Disc; Displacement of Lumbar Intervertebral Disc without Myelopathy; Intervertebral Disc Disorder; Spondylosis without Myelopathy; Lumbosacral Spondylosis without Myelopathy Pepito Griffiths MD: [id number] [address], Ph. Social History Tobacco Smoking Status Former [...]
--- OUTSIDE RECORDS SUMMARY | 2020-10-29 15:50 | CCD ---
Author Author [facility] Organization [facility] Address Unknown Phone Unavailable Care Team Providers Care Destination Sign Repairer Name Role Phone Jumalon, M Christine PROVISIONING SPECIALIST Unavailable Unavailable Jumalon, M Christine PROVISIONING SPECIALIST Unavailable Unavailable Jumalon, M Christine PROVISIONING SPECIALIST Unavailable Unavailable Jumalon, M Christine PROVISIONING SPECIALIST Unavailable Unavailable Jumalon, M Christine PROVISIONING SPECIALIST Unavailable Unavailable Jumalon, M Christine PROVISIONING SPECIALIST Unavailable Unavailable Jumalon, M Christine PROVISIONING SPECIALIST Unavailable Unavailable Jumalon, M Christine PROVISIONING SPECIALIST Unavailable Unavailable Jumalon, M Christine PROVISIONING SPECIALIST Unavailable Unavailable Jumalon, M Christine PROVISIONING SPECIALIST Unavailable Unavailable Jumalon, M Christine PROVISIONING SPECIALIST Unavailable Unavailable Jumalon, M Christine PROVISIONING SPECIALIST Unavailable Unavailable Jumalon, M Christine PROVISIONING SPECIALIST Unavailable Unavailable Jumalon, M Christine PROVISIONING SPECIALIST Unavailable Unavailable Jumalon, M Christine PROVISIONING SPECIALIST Unavailable Unavailable Jumalon, M Christine PROVISIONING SPECIALIST Unavailable Unavailable Jumalon, M Christine PROVISIONING SPECIALIST Unavailable Unavailable Jumalon, M Christine PROVISIONING SPECIALIST Unavailable Unavailable Jumalon, M Christine PROVISIONING SPECIALIST Unavailable Unavailable Jumalon, M Christine PROVISIONING SPECIALIST Unavailable Unavailable Jumalon, M Christine PROVISIONING SPECIALIST Unavailable Unavailable Jumalon, M Christine PROVISIONING SPECIALIST Unavailable Unavailable Jumalon, M Christine PROVISIONING SPECIALIST Unavailable Unavailable Jumalon, M Christine PROVISIONING SPECIALIST Unavailable Unavailable Jumalon, M Christine PROVISIONING SPECIALIST Unavailable Unavailable Jumalon, M Christine PROVISIONING SPECIALIST Unavailable Unavailable Jumalon, M Christine PROVISIONING SPECIALIST Unavailable Unavailable Jumalon, M Christine PROVISIONING SPECIALIST Unavailable Unavailable Fish, B Philipp SCOTT Unavailable Unavailable Fish, B Philipp SCOTT Unavailable Unavailable Fish, B Philipp SCOTT Unavailable Unavailable Fish, B Philipp SCOTT Unavailable Unavailable Fish, B Philipp SCOTT Unavailable Unavailable Fish, B Philipp SCOTT Unavailable Unavailable Fish, B Philipp SCOTT Unavailable Unavailable Fish, B Philipp SCOTT Unavailable Unavailable Fish, B Philipp SCOTT Unavailable Unavailable Fish, B Philipp SCOTT Unavailable Unavailable Fish, B Philipp SCOTT Unavailable Unavailable Fish, B Philipp SCOTT Unavailable Unavailable Fish, B Philipp SCOTT Unavailable Unavailable Fish, B Philipp SCOTT Unavailable Unavailable Fish, B Philipp SCOTT Unavailable Unavailable Fish, B Philipp SCOTT Unavailable Unavailable Fish, B Philipp SCOTT Unavailable Unavailable Fish, B Philipp SCOTT Unavailable Unavailable Fish, B Philipp SCOTT Unavailable Unavailable Fish, B Philipp SCOTT Unavailable Unavailable Fish, B Philipp SCOTT Unavailable Unavailable Fish, B Philipp SCOTT Unavailable Unavailable Fish, B Philipp SCOTT Unavailable Unavailable Fish, B Philipp SCOTT Unavailable Unavailable Fish, B Philipp SCOTT Unavailable Unavailable Fish, B Philipp SCOTT Unavailable Unavailable Fish, B Philipp SCOTT Unavailable Unavailable Fish, B Philipp SCOTT Unavailable Unavailable Fish, B Philipp SCOTT Unavailable Unavailable Fish, B Philipp SCOTT Unavailable Unavailable Fish, B Philipp SCOTT Unavailable Unavailable Fish, B Philipp SCOTT Unavailable Unavailable Fish, B Philipp SCOTT Unavailable Unavailable Fish, B Philipp SCOTT Unavailable Unavailable Fish, B Philipp SCOTT Unavailable Unavailable Fish, B Philipp SCOTT Unavailable Unavailable Fish, B Philipp SCOTT Unavailable Unavailable Fish, B Philipp SCOTT Unavailable Unavailable Fish, B Philipp SCOTT Unavailable Unavailable Fish, B Philipp SCOTT Unavailable Unavailable Fish, B Philipp SCOTT Unavailable Unavailable Fish, B Philipp SCOTT Unavailable Unavailable Fish, B Philipp SCOTT Unavailable Unavailable Fish, B Philipp SCOTT Unavailable Unavailable Fish, B Philipp SCOTT Unavailable Unavailable Fish, B Philipp SCOTT Unavailable Unavailable Fish, B Philipp SCOTT Unavailable Unavailable Fish, B Philipp SCOTT Unavailable Unavailable Fish, B Philipp SCOTT Unavailable Unavailable Fish, B Philipp SCOTT Unavailable Unavailable Fish, B Philipp SCOTT Unavailable Unavailable Fish, B Philipp SCOTT Unavailable Unavailable Fish, B Philipp SCOTT Unavailable Unavailable Hill, E Katelynn PROVISIONING SPECIALIST-BC Unavailable Unavailable Hill, E Katelynn PROVISIONING SPECIALIST-BC Unavailable Unavailable Hill, E Katelynn PROVISIONING SPECIALIST-BC Unavailable Unavailable Hill, E Katelynn PROVISIONING SPECIALIST-BC Unavailable Unavailable Hill, E Katelynn PROVISIONING SPECIALIST-BC Unavailable Unavailable Hill, E Katelynn PROVISIONING SPECIALIST-BC Unavailable Unavailable Hill, E Katelynn PROVISIONING SPECIALIST-BC Unavailable Unavailable Hill, E Katelynn PROVISIONING SPECIALIST-BC Unavailable Unavailable Hill, E Katelynn PROVISIONING SPECIALIST-BC Unavailable Unavailable Hill, E Katelynn PROVISIONING SPECIALIST-BC Unavailable Unavailable Hill, E Katelynn PROVISIONING SPECIALIST-BC Unavailable Unavailable Hill, E Katelynn PROVISIONING SPECIALIST-BC Unavailable Unavailable Hill, E Katelynn PROVISIONING SPECIALIST-BC Unavailable Unavailable Hill, E Katelynn PROVISIONING SPECIALIST-BC Unavailable Unavailable Hill, E Katelynn PROVISIONING SPECIALIST-BC Unavailable Unavailable Hill, E Katelynn PROVISIONING SPECIALIST-BC Unavailable Unavailable Hill, E Katelynn PROVISIONING SPECIALIST-BC Unavailable Unavailable Miedema, Kerri Vazquez MD Unavailable Unavailable Miedema, Kerri Vazquez MD Unavailable Unavailable Miedema, Kerri Vazquez MD Unavailable Unavailable Miedema, Kerri Vazquez MD Unavailable Unavailable Miedema, Kerri Vazquez MD Unavailable Unavailable Miedema, Kerri Vazquez MD Unavailable Unavailable Miedema, Kerri Vazquez MD Unavailable Unavailable Miedema, Kerri Vazquez MD Unavailable Unavailable Miedema, Kerri Vazquez MD Unavailable Unavailable Miedema, Kerri Vazquez MD Unavailable Unavailable Miedema, Kerri Vazquez MD Unavailable Unavailable Miedema, Kerri Vazquez MD Unavailable Unavailable Miedema, Kerri Vazquez MD Unavailable Unavailable Miedema, Kerri Vazquez MD Unavailable Unavailable Miedema, Kerri Vazquez MD Unavailable Unavailable Miedema, Kerri Vazquez MD Unavailable Unavailable Miedema, Kerri Vazquez MD Unavailable Unavailable Miedema, Kerri Vazquez MD Unavailable Unavailable Miedema, Kerri Vazquez MD Unavailable Unavailable Miedema, Kerri Vazquez MD Unavailable Unavailable Miedema, Kerri Vazquez MD Unavailable Unavailable Miedema, Kerri Vazquez MD Unavailable Unavailable Miedema, Kerri Vazquez MD Unavailable Unavailable Miedema, Kerri Vazquez MD Unavailable Unavailable Miedema, Kerri Vazquez MD Unavailable Unavailable Miedema, Kerri Vazquez MD Unavailable Unavailable Miedema, Kerri Vazquez MD Unavailable Unavailable Miedema, Kerri Vazquez MD Unavailable Unavailable Geovanna Griffiths MD Unavailable Unavailable Geovanna Griffiths MD Unavailable Unavailable Geovanna Griffiths MD Unavailable Unavailable Geovanna Griffiths MD Unavailable Unavailable Geovanna Griffiths MD Unavailable Unavailable Geovanna Griffiths MD Unavailable Unavailable Geovanna Griffiths MD Unavailable Unavailable Geovanna Griffiths MD Unavailable Unavailable Geovanna Griffiths MD Unavailable Unavailable Geovanna Griffiths MD Unavailable Unavailable Geovanna Griffiths MD Unavailable Unavailable Geovanna Griffiths MD Unavailable Unavailable Geovanna Griffiths MD Unavailable Unavailable Geovanna Griffiths MD Unavailable Unavailable Geovanna Griffiths MD Unavailable Unavailable Geovanna Griffiths MD Unavailable Unavailable Bolla, Geovanna Beyer MD Unavailable Unavailable Bolla, Geovanna Beyer MD Unavailable Unavailable Bolla, Geovanna Beyer MD Unavailable Unavailable Bolla, Geovanna Beyer MD Unavailable Unavailable Bolla, Geovanna Beyer MD Unavailable Unavailable Bolla, Gevoanna Beyer MD Unavailable Unavailable Bolla, Geovanna Beyer MD Unavailable Unavailable Bolla, Geovanna Beyer MD Unavailable Unavailable Bolla, Geovanna Beyer MD Unavailable Unavailable Bolla, Geovanna Beyer MD Unavailable Unavailable Bolla, Geovanna Beyer MD Unavailable Unavailable Bolla, Geovanna Beyer MD Unavailable Unavailable Bolla, Geovanna Beyer MD Unavailable Unavailable Bolla, Geovanna Beyer MD Unavailable Unavailable Bolla, S Pepito SCOTT Unavailable Unavailable Bolla, Geovanna Beyer MD Unavailable Unavailable Bolla, Geovanna Beyer MD Unavailable Unavailable Bolla, Geovanna Beyer MD Unavailable Unavailable Bolla, Geovanna Beyer MD Unavailable Unavailable Bolender, Geovanna Beyer MD Unavailable Unavailable Bolla, Geovanna Beyer MD Unavailable Unavailable Bolla, Geovanna Beyer MD Unavailable Unavailable Bolla, Geovanna Beyer MD Unavailable Unavailable Bolender, Geovanna Beyer MD Unavailable Unavailable Bolla, Geovanna Beyer MD Unavailable Unavailable Bolender, Geovanna Beyer MD Unavailable Unavailable Bolla, Geovanna Beyer MD Unavailable Unavailable Bolender, Geovanna Beyer MD Unavailable Unavailable Bolender, Geovanna Beyer MD Unavailable Unavailable Bolender, Geovanna Beyer MD Unavailable Unavailable Bolender, Geovanna Beyer MD Unavailable Unavailable Bolender, Geovanna Beyer MD Unavailable Unavailable Kolby Marroquin MD Unavailable Unavailable MarroquinKolby sun MD Unavailable Unavailable MarroquinKolby sun MD Unavailable Unavailable MarroquinKolby sun MD Unavailable Unavailable MarroquinKolby sun MD Unavailable Unavailable MarroquinKolby sun MD Unavailable Unavailable MarroquinKolby sun MD Unavailable Unavailable MarroquinKolby sun MD Unavailable Unavailable MarroquinKolby sun MD Unavailable Unavailable MarroquinKolby sun MD Unavailable Unavailable MarroquinKolby sun MD Unavailable Unavailable MarroquinKolby sun MD Unavailable Unavailable MarroquinKolby sun MD Unavailable Unavailable MarroquinKolby sun MD Unavailable Unavailable MarroquinKolby sun MD Unavailable Unavailable MarroquinKolby sun MD Unavailable Unavailable MarroquinKolby sun MD Unavailable Unavailable MarroquinKolby sun MD Unavailable Unavailable MarroquinKolby sun MD Unavailable Unavailable MarroquinKolby sun MD Unavailable Unavailable MarroquinKolby sun MD Unavailable Unavailable Marroquin, L Xavier MD Unavailable Unavailable Marroquin, L Xavier MD Unavailable Unavailable Marroquin, L Xavier MD Unavailable Unavailable Marroquin, L Xavier MD Unavailable Unavailable Marroquin, L Xavier MD Unavailable Unavailable Marroquin, L Xavier MD Unavailable Unavailable Marroquin, L Xavier MD Unavailable Unavailable Marroquin, L Xavier MD Unavailable Unavailable Marroquin, L Xavier MD Unavailable Unavailable Marroquin, L Xavier MD Unavailable Unavailable Marroquin, L Xvaier MD Unavailable Unavailable Marroquin, L Xavier MD Unavailable Unavailable Marroquin, L Xavier MD Unavailable Unavailable Marroquin, L Xavier MD Unavailable Unavailable Marroquin, L Xavier MD Unavailable Unavailable Marroquin, L Xavier MD Unavailable Unavailable Mraroquin, L Xavier MD Unavailable Unavailable Marroquin, L Xavier MD Unavailable Unavailable Marroquin, L Xavier MD Unavailable Unavailable Marroquin, L Xavier MD Unavailable Unavailable Marroquin, L Xavier MD Unavailable Unavailable Marroquin, L Xavier MD Unavailable Unavailable Marroquin, L Xavier MD Unavailable Unavailable Marroquin, L Xavier MD Unavailable Unavailable Marroquin, L Xavier MD Unavailable Unavailable Marroquin, L Xavier MD Unavailable Unavailable Re-disclosure Warning The records that you are about to access may contain information from federally-assisted alcohol or drug abuse programs. If such information is present, then the following federally mandated warning applies: This information has been disclosed to you from records protected by federal confidentiality rules (42 CFR part 2). The federal rules prohibit you from making any further disclosure of this information unless further disclosure is expressly permitted by the written consent of the person to whom it pertains or as otherwise permitted by 42 CFR part 2. A general authorization for the release of medical or other information is NOT sufficient for this purpose. The Federal rules restrict any use of the information to criminally investigate or prosecute any alcohol or drug abuse patient.The records that you are about to access may contain highly sensitive health information, the redisclosure of which is protected by Article 27-F of the [facility] Public Health law. If you continue you may have access to information: Regarding HIV / AIDS; Provided by facilities licensed or operated by the [facility] Office of Mental Health; or Provided by the [facility] Office for People With Developmental Disabilities. If such information is present, then the following [facility] mandated warning applies: This information has been disclosed to you from confidential records which are protected by state law. State law prohibits you from making any further disclosure of this information without the specific written consent of the person to whom it pertains, or as otherwise permitted by law. Any unauthorized further disclosure in violation of state law may result in a fine or residential sentence or both. A general authorization for the release of medical or other information is NOT sufficient authorization for further disc losure. Allergies and Adverse Reactions Type Description Substance Reaction Status Data Source(s ) Food allergy SEAFOOD; BLACK SAUCE SEAFOOD; BLACK SAUCE [facility] Drug allergy IODINE IODINE REDNESS [facility] Family History Family Member Name Family Member Gender Family Member Status Date o f Status Description Data Source(s) Unknown Male Problem MEDENT ([facility]) Encounters Encounter Providers Location Date Indications Data Source(s ) Outpatient 11/22/2020 12:00:00 AM [facility] Preadmit Attender: Katelynn VIDESBCAdmitter: Katelynn ELY OP-OP 11/05/2020 01:00:00 PM [facility] Pepito Griffiths MD: [id number], [facility] [place] [address], Ph. Attender: Pepito Griffiths MD [place] - [facility] 08/26/2020 12:00:00 AM EST [facility] ([facility]) Pepito Griffiths MD: [address], [place] [address], Ph. Attender: Pepito Griffiths MD [facility] 08/17/2020 12:00:00 AM EST [facility] ([facility]) Pepito Griffiths MD: [address], [place] [address], Ph. Attender: Pepito Griffiths MD [facility] 08/17/2020 12:00:00 AM EST [facility] ([facility]) Pepito Griffiths MD: [address], [place] [address], Ph. Attender: Pepito Griffiths MD [facility] 08/17/2020 12:00:00 AM EST [facility] ([facility]) Christine Serna, CRM ADMINISTRATOR: [address], [place] [address], Ph. Attender: Christine Serna [facility] - [facility] 08/10/2020 12:00:00 AM EST ATHE NA ([facility]) Christine Serna, CRM ADMINISTRATOR: [address], [address], [place] [address], Ph. Attender: Christine Serna [facility] - [facility] 08/10/2020 12:00:00 AM EST ATHE NA ([facility]) Christine Serna, CRM ADMINISTRATOR: [address], [place] [address], Ph. Attender: Christine Doddlaura [facility] 08/10/2020 12:00:00 AM EST ATHE NA ([facility]) Christine Serna, CRM ADMINISTRATOR: [address], [place] [address], Ph. Attender: Christine Doddlaura [facility] - [facility] 08/10/2020 12:00:00 AM EST ATHE NA ([facility]) Pepito Griffiths MD: [address], [address], [place] [address], Ph. Attender: Pepito Griffiths MD [place] - [facility] 07/29/2020 12:00:00 AM EST [facility] ([facility]) Pepito Griffiths MD: [address], [address], [place] [address], Ph. Attender: Pepito Griffiths MD [place] - [facility] 07/29/2020 12:00:00 AM EST [facility] ([facility]) Pepito Griffiths MD: [address], [address], [place] [address], Ph. Attender: Pepito VENTURA - [facility] 07/29/2020 12:00:00 AM EST [facility] ([facility]) Pepito Griffiths MD: [address], [address], [place] [address], Ph. Attender: Pepito VENTURA - [facility] 07/29/2020 12:00:00 AM EST [facility]IO ([facility]) Pepito Griffiths MD: [address], [address], [place] [address], Ph. Attender: Pepito VENTURA - [facility] 07/29/2020 12:00:00 AM EST [facility]ORIO ([facility]) Pepito Griffiths MD: [address], [address], [place] [address], Ph. Attender: Pepito VENTURA - [facility] 07/15/2020 12:00:00 AM EDT [facility]ONORIO ([facility]) Pepito Griffiths MD: [address], [address], [place] [address], Ph. Attender: Pepito VENTURA - [facility] 07/15/2020 12:00:00 AM EDT [facility]ONORIO ([facility]) Pepito Griffiths MD: [address], [address], [place] [address], Ph. Attender: Pepito VENTURA - [facility] 07/15/2020 12:00:00 AM EDT [facility]ONORIO ([facility]) Pepito Griffiths MD: [address], [address], [place] [address], Ph. Attender: Pepito VENTURA - [facility] 07/15/2020 12:00:00 AM EDT [facility]ONORIO ([facility]) Pepito Griffiths MD: [address], [address], [place] [address], Ph. Attender: Pepito VENTURA - [facility] 07/15/2020 12:00:00 AM EDT [facility]ONORIO ([facility]) Pepito Griffiths MD: [address], [address], [place] [address], Ph. Attender: Pepito VENTURA - [facility] 07/15/2020 12:00:00 AM EDT [facility]ONORIO ([facility]) Pepito Griffiths MD: [address], [address], [place] [address], Ph. Attender: Pepito VENTURA - [facility] 07/01/2020 12:00:00 AM EDT [facility]ONORIO ([facility]) Pepito Griffiths MD: [address], [address], [place] [address], Ph. Attender: Pepito VENTURA - [facility] 07/01/2020 12:00:00 AM EDT [facility]ONORIO ([facility]) Pepito Griffiths MD: [address], [address], [place] [address], Ph. Attender: Pepito VENTURA - [facility] 07/01/2020 12:00:00 AM EDT [facility]ONORIO ([facility]) Pepito Griffiths MD: [address], [address], [place] [address], Ph. Attender: Pepito Griffiths MD [place] - [facility] 07/01/2020 12:00:00 AM EDT [facility]ONORIO ([facility]) Pepito Griffiths MD: [address], [address], [place] [address], Ph. Attender: Pepito Griffiths MD [place] - [facility] 07/01/2020 12:00:00 AM EDT [facility]ONORIO ([facility]) Pepito Griffiths MD: [address], [address], [place] [address], Ph. Attender: Pepito Griffiths MD [place] - [facility] 07/01/2020 12:00:00 AM EDT [facility]ONORIO ([facility]) Pepito Griffiths MD: [address], [address], [place] [address], Ph. Attender: Pepito Griffiths MD [place] - [facility] 07/01/2020 12:00:00 AM EDT [facility]OR[facility] ([facility]) Christine Serna, CRM ADMINISTRATOR: [address], [address], [place] [address], Ph. [facility]: [facility] 06/24/2020 12:00:00 AM EDT ATHE NA ([facility]) Christine Serna, CRM ADMINISTRATOR: [address], [address], [place] [address], Ph. Attender: Christine Serna [facility] - [facility] 06/24/2020 12:00:00 AM EDT ATHE NA ([facility]) Christine Serna, CRM ADMINISTRATOR: [address], [place] [address], Ph. Attender: Christine Serna [facility] - [facility] 06/24/2020 12:00:00 AM EDT ATHE NA ([facility]) Christine Serna, CRM ADMINISTRATOR: [address], [place] [address], Ph. Attender: Christine Serna [facility] - [facility] 06/24/2020 12:00:00 AM EDT ATHE NA ([facility]) Christine Serna, CRM ADMINISTRATOR: [address], [place] [address], Ph. Attender: Christine Serna [facility] - [facility] 06/24/2020 12:00:00 AM EDT ATHE NA ([facility]) Christine Serna, CRM ADMINISTRATOR: [address], [place] [address], Ph. Attender: Christine Serna [facility] - [facility] 06/24/2020 12:00:00 AM EDT ATHE NA ([facility]) Christine Serna, CRM ADMINISTRATOR: [address], [place] [address], Ph. Attender: Christine Serna [facility] - [facility] 06/24/2020 12:00:00 AM EDT ATHE NA ([facility]) Christine Rashid Poppybraydenlaura, CRM ADMINISTRATOR: [address], [address], [place] [address], Ph. Attender: Christine Serna [facility] - [facility] 05/13/2020 12:00:00 AM EDT ATHE NA ([facility]) Christine Serna, CRM ADMINISTRATOR: [address], [address], [place] [address], Ph. Attender: Christine Serna [facility] - [facility] 05/13/2020 12:00:00 AM EDT ATHE NA ([facility]) Christine Serna, CRM ADMINISTRATOR: [address], [address], [place] [address], Ph. Attender: Christine Serna [facility] - [facility] 05/13/2020 12:00:00 AM EDT ATHE NA ([facility]) Christine Serna, CRM ADMINISTRATOR: [address], [address], [place] [address], Ph. Attender: Christine Serna [facility] - [facility] 05/13/2020 12:00:00 AM EDT ATHE NA ([facility]) Christine Serna, CRM ADMINISTRATOR: [address], [address], [place] [address], Ph. Attender: Christine Serna [facility] - [facility] 05/13/2020 12:00:00 AM EDT ATHE NA ([facility]) Christine Serna, CRM ADMINISTRATOR: [address], [address], [place] [address], Ph. Attender: Christine Serna [facility] - [facility] 05/13/2020 12:00:00 AM EDT ATHE NA ([facility]) Christine Serna, CRM ADMINISTRATOR: [address], [address], [place] [address], Ph. Attender: Christine Serna [facility] - [facility] - [facility] 05/13/2020 12:00:00 AM EDT ATHE NA ([facility]) Christine Serna, CRM ADMINISTRATOR: [address], [address], [place] [address], Ph. Attender: Christine Serna [facility] - [facility] - [facility] 05/13/2020 12:00:00 AM EDT ATHE NA ([facility]) Pepito Griffiths MD: [address], [place] [address], Ph. Attender: Pepito VENTURA - [facility] 04/28/2020 12:00:00 AM EDT HONORIO ([facility]) Pepito Griffiths MD: [address]33 [address], [address], [place] [address], Ph. Attender: Pepito VENTURA - [facility] - [facility] 04/28/2020 12:00:00 AM EDT HONORIO ([facility]) Pepito Griffiths MD: [address]146 [address], [address], [place] [address], Ph. Attender: Pepito VENTURA - [facility] 04/28/2020 12:00:00 AM EDT HONORIO ([facility]) Pepito Griffiths MD: [address]661 [address], [address], [place] [address], Ph. Attender: Pepito VENTURA - [facility] 04/28/2020 12:00:00 AM EDT HONORIO ([facility]) Pepito Griffiths MD: [address]306 [address], [place] [address], Ph. Attender: Pepito VENTURA - [facility] 04/28/2020 12:00:00 AM EDT HONORIO ([facility]) Pepito Griffiths MD: [address]70 [address], [address], [place] [address], Ph. Attender: Pepito VENTURA - [facility] 04/28/2020 12:00:00 AM EDT HONORIO ([facility]) Pepito Griffiths MD: [address], [address] [place], [place] [address], Ph. Attender: Pepito VENTURA - [facility] 04/28/2020 12:00:00 AM EDT HONORIO ([facility]) Pepito Griffiths MD: [address]180 [address], [address], [place] [address], Ph. Attender: Pepito VENTURA - [facility] 04/28/2020 12:00:00 AM EDT HONORIO ([facility]) Pepito Griffiths MD: [address]24 [address], [address] [place], [place] [address], Ph. Attender: Pepito VENTURA - [facility] 04/28/2020 12:00:00 AM EDT HONORIO ([facility]) Outpatient Attender: George Walter MD 04/22 01:57:00 PM EDT - 04/22/2020 02:57:00 PM EDT [facility] Patient discharged. Christine Serna, CRM ADMINISTRATOR: [address], [address], [place] [address], Ph. Attender: Christine Serna [facility] - [facility] 04/06/2020 12:00:00 AM EDT ATHE NA ([facility]) Christine Serna, CRM ADMINISTRATOR: [address], [address], [place] [address], Ph. Attender: Christine Serna [facility] - [facility] 04/06/2020 12:00:00 AM EDT ATHE NA ([facility]) Christine Serna, CRM ADMINISTRATOR: [address], [place] [address], Ph. Attender: Christine Serna [facility] - [facility] 04/06/2020 12:00:00 AM EDT ATHE NA ([facility]) Christine Serna, CRM ADMINISTRATOR: [address], [address], [place] [address], Ph. Attender: Christine Serna [facility] - [facility] 04/06/2020 12:00:00 AM EDT ATHE NA ([facility]) Christine Serna, CRM ADMINISTRATOR: [address], [address], [place] [address], Ph. Attender: Chrsitine Serna [facility] - [facility] 04/06/2020 12:00:00 AM EDT ATHE NA ([facility]) Christine Serna, CRM ADMINISTRATOR: [address], [address], [place] [address], Ph. Attender: Christine Poppybraydenlaura [facility] - [facility] 04/06/2020 12:00:00 AM EDT ATHE NA ([facility]) Christine Serna, CRM ADMINISTRATOR: [address], [place] [address], Ph. Attender: Christine Serna [facility] - [facility] 04/06/2020 12:00:00 AM EDT ATHE NA ([facility]) Christine Serna, CRM ADMINISTRATOR: [address], [address], [place] [address], Ph. Attender: Christine Serna [facility] - [facility] 04/06/2020 12:00:00 AM EDT ATHE NA ([facility]) Christine Serna, CRM ADMINISTRATOR: [address], [place] [address], Ph. Attender: Christine Serna [facility] - [facility] 04/06/2020 12:00:00 AM EDT ATHE NA ([facility]) Christine Serna, CRM ADMINISTRATOR: [address], [place] [address], Ph. Attender: Christine Serna [facility] - [facility] 04/06/2020 12:00:00 AM EDT ATHE NA ([facility]) Pepito Griffiths MD: [address]69 [address], [address], [place] [address], Ph. Attender: Pepito Griffiths MD [place] - [facility] 03/23/2020 12:00:00 AM EDT HONORIO ([facility]) Pepito Griffiths MD: [address]60 [address], [place] [address], Ph. Attender: Pepito VENTURA - [facility] 03/23/2020 12:00:00 AM EDT HONORIO ([facility]) Pepito Griffiths MD: 68269 [address], [address], [place] [address], Ph. Attender: Pepito VENTURA - [facility] 03/23/2020 12:00:00 AM EDT HONORIO ([facility]) Pepito Griffiths MD: [address]61 [address], [address], [place] [address], Ph. Attender: Pepito VENTURA - [facility] 03/23/2020 12:00:00 AM EDT HONORIO ([facility]) Pepito Griffiths MD: 23864 [address], [address], [place] [address], Ph. Attender: Pepito VENTURA - [facility] 03/23/2020 12:00:00 AM EDT HONORIO ([facility]) Pepito Griffiths MD: [address]111 [address], [address], [place] [address], Ph. Attender: Pepito VENTURA - [facility] 03/23/2020 12:00:00 AM EDT HONORIO ([facility]) Pepito Griffiths MD: [address]1549 [address], [address], [place] [address], Ph. Attender: Ppeito VENTURA - [facility] 03/23/2020 12:00:00 AM EDT HONORIO ([facility]) Pepito Griffiths MD: [address]27 [address], [address], [place] [address], Ph. Attender: Pepito Griffiths MD [place] - [facility] 03/23/2020 12:00:00 AM EDT HONORIO ([facility]) Pepito Griffiths MD: 31742 [address], [address], [place] [address], Ph. Attender: Pepito Griffiths MD [place] - [facility] 03/23/2020 12:00:00 AM EDT HONORIO ([facility]) Pepito Griffiths MD: [address]71 [address], [address], [place] [address], Ph. Attender: Pepito Griffiths MD [place] - [facility] 03/23/2020 12:00:00 AM EDT HONORIO ([facility]) Pepito Griffiths MD: [address]406 [address], [place] [address], Ph. Attender: Pepito Griffiths MD [place] - [facility] 03/23/2020 12:00:00 AM EDT HONORIO ([facility]) Christine Serna, CRM ADMINISTRATOR: [address], [place] [address], Ph. Attender: Christine Serna [facility] - [facility] 01/14/2020 12:00:00 AM EDT ATHE NA ([facility]) Christine Serna, CRM ADMINISTRATOR: [address], [place] [address], Ph. Attender: Christine Serna [facility] - [facility] 01/14/2020 12:00:00 AM EDT ATHE RADHA ([facility]) Christine Serna, CRM ADMINISTRATOR: [address], [place] [address], Ph. Attender: Christine Serna [facility] - [facility] 01/14/2020 12:00:00 AM EDT ATHE NA ([facility]) Christine Serna, CRM ADMINISTRATOR: [address], [place] [address], Ph. Attender: Christine Serna [facility] - [facility] 01/14/2020 12:00:00 AM EDT ATHE NA ([facility]) Christine Serna, CRM ADMINISTRATOR: [address], [place] [address], Ph. Attender: Christine Serna [facility] - [facility] 01/14/2020 12:00:00 AM EDT ATHE NA ([facility]) Christine Serna, CRM ADMINISTRATOR: [address], [place] [address], Ph. Attender: Christine Serna [facility] - [facility] 01/14/2020 12:00:00 AM EDT ATHE NA ([facility]) Christine Rashid Poppyyuval, CRM ADMINISTRATOR: [address], [place] [address], Ph. Attender: Christine Serna [facility] - [facility] 01/14/2020 12:00:00 AM EDT ATHE NA ([facility]) Christine Rashid Poppyyuval, CRM ADMINISTRATOR: [address], [place] [address], Ph. Attender: Christine Doddlaura [facility] - [facility] 01/14/2020 12:00:00 AM EDT ATHE NA ([facility]) Christine Serna, CRM ADMINISTRATOR: [address], [place] [address], Ph. Attender: Christine Serna [facility] - [facility] 01/14/2020 12:00:00 AM EDT ATHE NA ([facility]) Christine Serna, CRM ADMINISTRATOR: [address], [address], [place] [address], Ph. Attender: Christine Serna [facility] - [facility] 01/14/2020 12:00:00 AM EDT ATHE NA ([facility]) Christine Serna, CRM ADMINISTRATOR: [address], [facility] [place] [address], Ph. Attender: Christine Serna [facility] - [facility] 01/14/2020 12:00:00 AM EDT ATHE NA ([facility]) Christine Serna, CRM ADMINISTRATOR: [address], [facility] [place] [address], Ph. Attender: Christine Serna [facility] 01/14/2020 12:00:00 AM EDT ATHE NA ([facility]) Outpatient Attender: Philipp Lester MD Physical Therapy 01/12/2020 0 9:30:00 AM EDT HARLEY ([facility]) Christine Serna, CRM ADMINISTRATOR: [address], [place] [address], Ph. Attender: Christine Serna [facility] - [facility] 12/31/2019 12:00:00 AM EDT HONORIO ([facility]) Christine Rashid Kareem, CRM ADMINISTRATOR: [address], [place] [address], Ph. Attender: Christine Serna PROVISIONING SPECIALIST [place] - [facility] 12/31/2019 12:00:00 AM EDT HONORIO ([facility]) Christine Serna, CRM ADMINISTRATOR: [address], [place] [address], Ph. Attender: Christine Serna PROVISIONING SPECIALIST [place] - [facility] 12/31/2019 12:00:00 AM EDT HONORIO ([facility]) Christine Serna, CRM ADMINISTRATOR: [address], [place] [address], Ph. Attender: Christine Serna PROVISIONING SPECIALIST [place] - [facility] 12/31/2019 12:00:00 AM EDT HONORIO ([facility]) Christine Serna, CRM ADMINISTRATOR: [address], [place] [address], Ph. Attender: Christine Serna PROVISIONING SPECIALIST [place] - [facility] 12/31/2019 12:00:00 AM EDT HONORIO ([facility]) Christine Serna, CRM ADMINISTRATOR: [address], [place] [address], Ph. Attender: Christine Serna PROVISIONING SPECIALIST [place] - [facility] 12/31/2019 12:00:00 AM EDT HONORIO ([facility]) Christine Serna, CRM ADMINISTRATOR: [address], [place] [address], Ph. Attender: Christine Serna PROVISIONING SPECIALIST [place] - [facility] 12/31/2019 12:00:00 AM EDT HONORIO ([facility]) Christine Serna, CRM ADMINISTRATOR: [address], [place] [address], Ph. Attender: Christine Serna PROVISIONING SPECIALIST [place] - [facility] 12/31/2019 12:00:00 AM EDT HONORIO ([facility]) Christine Serna, CRM ADMINISTRATOR: [address], [place] [address], Ph. Att[facility]: [facility] 12/31/2019 12:00:00 AM EDT HONORIO ([facility]) Christine Serna, CRM ADMINISTRATOR: [address], [place] [address], Ph. Attender: [facility] 12/31/2019 12:00:00 AM EDT HONORIO ([facility]) Christine Serna, CRM ADMINISTRATOR: [address], [place] [address], Ph. Attender: Christine [facility] 12/31/2019 12:00:00 AM EDT HONORIO ([facility]) Christine Serna, CRM ADMINISTRATOR: [address]2 [address], [place] [address], Ph. Attender: Christine Serna PROVISIONING SPECIALIST [place] - [facility] 12/31/2019 12:00:00 AM EDT HONORIO ([facility]) Christine Serna, CRM ADMINISTRATOR: [address], [place] [address], Ph. Attender: Christine Kareem PROVISIONING SPECIALIST [place] - [facility] 12/31/2019 12:00:00 AM EDT HONORIO ([facility]) Christine Serna, CRM ADMINISTRATOR: [address], [place] [address], Ph. Attender: Christine Serna [facility] - [facility] 12/31/2019 12:00:00 AM EDT HONORIO ([facility]) Outpatient Attender: Xavier Marroquin MD Physical Therapy 12/01/2019 0 8:30:00 AM EDT MEDENT ([facility]) Pepito Griffiths MD: [address]95 [address], [place] [address], Ph. Attender: Pepito Griffiths MD [place] - [facility] 11/25/2019 12:00:00 AM EST HONORIO ([facility]) Pepito Griffiths MD: 88746 [address], [place] [address], Ph. Attender: Pepito Griffiths MD [place] - [facility] 11/25/2019 12:00:00 AM EST HONORIO ([facility]) Pepito Griffiths MD: 78124 [address], [place] [address], Ph. Attender: Pepito Griffiths MD [place] - [facility] 11/25/2019 12:00:00 AM EST HONORIO ([facility]) Pepito Griffiths MD: 60685 [address], [place] [address], Ph. Attender: Pepito VENTURA - [facility] 11/25/2019 12:00:00 AM EST HONORIO ([facility]) Pepito Griffiths MD: 40361 [address], [address], [place] [address], Ph. Attender: Pepito Griffiths MD [place] - [facility] 11/25/2019 12:00:00 AM EST HONORIO ([facility]) Pepito Griffiths MD: 14774 [address], [address], [place] [address], Ph. Attender: Pepito Griffiths MD [place] - [facility] 11/25/2019 12:00:00 AM EST HONORIO ([facility]) Pepito Griffiths MD: 60181 [address], [place] [address], Ph. Attender: Pepito VENTURA - [facility] 11/25/2019 12:00:00 AM EST HONORIO ([facility]) Pepito Griffiths MD: 34890 [address], [place] [address], Ph. Attender: Pepito VENTURA - [facility] 11/25/2019 12:00:00 AM EST HONORIO ([facility]) Pepito Griffiths MD: 33916 [address], [place] [address], Ph. Attender: Pepito VENTURA - [facility] 11/25/2019 12:00:00 AM EST HONORIO ([facility]) Pepito Griffiths MD: 54150 [address], [place] [address], Ph. Attender: Pepito Griffiths MD [place] - [facility] 11/25/2019 12:00:00 AM EST HONORIO ([facility]) Pepito Griffiths MD: 65933 [address], [address], [place] [address], Ph. Attender: Pepito Griffiths MD [place] - [facility] 11/25/2019 12:00:00 AM EST HONORIO ([facility]) Pepito Griffiths MD: 44710 [address], [place] [address], Ph. Attender: Pepito Griffiths MD [place] - [facility] 11/25/2019 12:00:00 AM EST HONORIO ([facility]) Pepito Griffiths MD: 95017 [address], [place] [address], Ph. Attender: Pepito Griffiths MD [place] - [facility] 11/25/2019 12:00:00 AM EST HONORIO ([facility]) Pepito Griffiths MD: 60778 [address], [place] [address], Ph. Attender: Pepito Griffiths MD [place] - [facility] 11/25/2019 12:00:00 AM EST HONORIO ([facility]) Christine Serna, CRM ADMINISTRATOR: [address], [place] [address], Ph. Attender: Christine Serna [facility] - [facility] 10/28/2019 12:00:00 AM EST ATHE NA ([facility]) Christine Serna, CRM ADMINISTRATOR: 42137 [address], [place] [address], Ph. Attender: Christine Serna [facility] - [facility] 10/28/2019 12:00:00 AM EST ATHE NA ([facility]) Christine Serna, CRM ADMINISTRATOR: [address]91 [address], [place] [address], Ph. Attender: Christine Serna [facility] - [facility] 10/28/2019 12:00:00 AM EST ATHE NA ([facility]) Christine Serna, CRM ADMINISTRATOR: 18739 [address], [place] [address], Ph. Attender: Christine Serna [facility] - [facility] 10/28/2019 12:00:00 AM EST ATHE NA ([facility]) Christine Serna, CRM ADMINISTRATOR: 44406 [address], [place] [address], Ph. Attender: Christine Serna [facility] - [facility] 10/28/2019 12:00:00 AM EST ATHE NA ([facility]) Christine Serna, CRM ADMINISTRATOR: [address], [place] [address], Ph. Attender: Christine Serna [facility] - [facility] 10/28/2019 12:00:00 AM EST ATHE NA ([facility]) Christine Serna, CRM ADMINISTRATOR: [address]20 [address], [place] [address], Ph. Attender: Christine Serna [facility] - [facility] 10/28/2019 12:00:00 AM EST ATHE NA ([facility]) Christine Serna, CRM ADMINISTRATOR: [address]62 [address], [facility] [place] [address], Ph. Attender: Christine Serna [facility] - [facility] 10/28/2019 12:00:00 AM EST ATHE NA ([facility]) Christine Serna, CRM ADMINISTRATOR: [address], [address], [place] [address], Ph. Attender: Christine Serna [facility] 10/28/2019 12:00:00 AM EST ATHE NA ([facility]) Christine Serna, CRM ADMINISTRATOR: [address]38 [address], [address], [place] [address], Ph. Attender: Christine Poppybraydenlaura [facility] 10/28/2019 12:00:00 AM EST ATHE NA ([facility]) Christine Serna, CRM ADMINISTRATOR: [address]253 [address], [place] [address], Ph. Attender: Chritsine Poppybraydenlaura [facility] [facility] 10/28/2019 12:00:00 AM EST ATHE NA ([facility]) Christine Serna, CRM ADMINISTRATOR: [address], [place] [address], Ph. Attender: Christine Serna [facility] 10/28/2019 12:00:00 AM EST ATHE NA ([facility]) Christine Serna, CRM ADMINISTRATOR: [address], [address], [place] [address], Ph. Attender: Christine Serna [facility] 10/28/2019 12:00:00 AM EST ATHE NA ([facility]) Christine Serna, CRM ADMINISTRATOR: [address], [place] [address], Ph. Attender: Christine Serna PROVISIONING SPECIALIST [place] - [facility] 10/28/2019 12:00:00 AM EST ATHE NA ([facility]) Christine Serna, CRM ADMINISTRATOR: [address], [address], [place] [address], Ph. Attender: Christine Serna [facility] - [facility] 10/28/2019 12:00:00 AM EST ATHE NA ([facility]) Pepito Griffiths MD: [address], [place] [address], Ph. Attender: Pepito Griffiths MD [place] - [facility] 09/30/2019 12:00:00 AM EST HONORIO ([facility]) Pepito Griffiths MD: [address], [facility] [place] [address], Ph. Attender: Pepito Griffiths MD [place] - [facility] 09/30/2019 12:00:00 AM EST HONORIO ([facility]) Pepito Griffiths MD: [address], [place] [address], Ph. Attender: Pepito Griffiths MD [place] - [facility] 09/30/2019 12:00:00 AM EST HONORIO ([facility]) Pepito Griffiths MD: [address], [place] [address], Ph. Attender: Pepito Griffiths MD [place] - [facility] 09/30/2019 12:00:00 AM EST HONORIO ([facility]) Pepito Griffiths MD: [address], [place] [address], Ph. Attender: Pepito Griffiths MD [place] - [facility] 09/30/2019 12:00:00 AM EST HONORIO ([facility]) Pepito Griffiths MD: [address], [address], [place] [address], Ph. Attender: Pepito Griffiths MD [place] - [facility] 09/30/2019 12:00:00 AM EST HONORIO ([facility]) Pepito Griffiths MD: [address], [address], [place] [address], Ph. Attender: Pepito VENTURA - [facility] 09/30/2019 12:00:00 AM EST HONORIO ([facility]) Pepito Griffiths MD: [address], [place] [address], Ph. Attender: Pepito VENTURA - [facility] 09/30/2019 12:00:00 AM EST HONORIO ([facility]) Pepito Griffiths MD: [address], [address], [place] [address], Ph. Attender: Pepito VENTURA - [facility] 09/30/2019 12:00:00 AM EST HONORIO ([facility]) Pepito Griffiths MD: [address]41 [address], [address], [place] [address], Ph. Attender: Pepito VENTURA - [facility] 09/30/2019 12:00:00 AM EST HONORIO ([facility]) Pepito Griffiths MD: [address], [address], [place] [address], Ph. Attender: Pepito VENTURA - [facility] 09/30/2019 12:00:00 AM EST HONORIO ([facility]) Pepito Griffiths MD: [address], [place] [address], Ph. Attender: Pepito Griffiths MD [place] - [facility] 09/30/2019 12:00:00 AM EST HONORIO ([facility]) Pepito Griffiths MD: [address], [place] [address], Ph. Attender: Pepito Griffiths MD [place] - [facility] 09/30/2019 12:00:00 AM EST HONORIO ([facility]) Pepito Griffiths MD: [address], [place] [address], Ph. Attender: Pepito Griffiths MD [place] - [facility] 09/30/2019 12:00:00 AM EST HONORIO ([facility]) Pepito Griffiths MD: [address], [place] [address], Ph. Attender: Pepito Griffiths MD [place] - [facility] 09/30/2019 12:00:00 AM EST HONORIO ([facility]) Pepito Griffiths MD: [address], [place] [address], Ph. Attender: Pepito Griffiths MD [place] - [facility] 09/30/2019 12:00:00 AM EST HONORIO ([facility]) Christine Serna, CRM ADMINISTRATOR: [address], [place] [address], Ph. Att[facility]: [facility] 09/09/2019 12:00:00 AM EST ATHE NA ([facility]) Christine Serna, CRM ADMINISTRATOR: [address], [place] [address], Ph. Attender: Christine Serna [facility] - [facility] 09/09/2019 12:00:00 AM EST ATHE NA ([facility]) Christine Serna, CRM ADMINISTRATOR: [address], [place] [address], Ph. Attender: Christine Serna [facility] 09/09/2019 12:00:00 AM EST ATHE NA ([facility]) Christine Serna, CRM ADMINISTRATOR: [address], [place] [address], Ph. Attender: Christine Serna [facility] 09/09/2019 12:00:00 AM EST ATHE NA ([facility]) Christine Serna, CRM ADMINISTRATOR: [address], [place] [address], Ph. Attender: Christine Serna [facility] - [facility] 09/09/2019 12:00:00 AM EST ATHE NA ([facility]) Christine Serna, CRM ADMINISTRATOR: [address], [place] [address], Ph. Attender: Christine Serna [facility] - [facility] 09/09/2019 12:00:00 AM EST ATHE NA ([facility]) Christine Serna, CRM ADMINISTRATOR: [address], [place] [address], Ph. Attender: Christine Serna [facility] - [facility] 09/09/2019 12:00:00 AM EST ATHE NA ([facility]) Christine Serna, CRM ADMINISTRATOR: [address], [place] [address], Ph. Attender: Christine Serna [facility] - [facility] 09/09/2019 12:00:00 AM EST ATHE NA ([facility]) Christine Serna, CRM ADMINISTRATOR: [address], [place] [address], Ph. Attender: Christine Serna [facility] - [facility] 09/09/2019 12:00:00 AM EST ATHE NA ([facility]) Christine Serna, CRM ADMINISTRATOR: [address], [place] [address], Ph. Attender: Christine Serna [facility] - [facility] 09/09/2019 12:00:00 AM EST ATHE NA ([facility]) Christine Serna, CRM ADMINISTRATOR: [address], [place] [address], Ph. Attender: Christine Serna [facility] - [facility] 09/09/2019 12:00:00 AM EST ATHE NA ([facility]) Christine Serna, CRM ADMINISTRATOR: [address], [place] [address], Ph. Attender: Christine Serna [facility] - [facility] 09/09/2019 12:00:00 AM EST ATHE NA ([facility]) Christine Serna, CRM ADMINISTRATOR: [address], [place] [address], Ph. Attender: Christine Serna [facility] 09/09/2019 12:00:00 AM EST ATHE NA ([facility]) Christine Serna, CRM ADMINISTRATOR: [address], [facility] [place] [address], Ph. Attender: Christine Serna [facility] 09/09/2019 12:00:00 AM EST ATHE NA ([facility]) Christine Serna, CRM ADMINISTRATOR: [address], [place] [address], Ph. Attender: Christine Serna [facility] 09/09/2019 12:00:00 AM EST ATHE NA ([facility]) Christine Serna, CRM ADMINISTRATOR: [address], [place] [address], Ph. Attender: Christine Serna [facility] 09/09/2019 12:00:00 AM EST ATHE NA ([facility]) Christine Serna, CRM ADMINISTRATOR: [address], [facility] [place] [address], Ph. Attender: Christine Serna [facility] 09/09/2019 12:00:00 AM EST ATHE NA ([facility]) Medications Medication Brand Name Start Date Product Form Dose Route Admi nistrative Instructions Pharmacy Instructions Status Indications Reaction Description Data Source(s) Magnesium Hydroxide 80 MG/ML Oral Suspension Milk Of Magnesi a 03/01/2020 12:00:00 AM EDT ORAL active M EDENT ([facility]) Suprep Bowel Prep Kit Suprep Bowel Prep Kit 03/01/2020 12:00:00 AM EDT active MEDENT ([facility]) gabapentin 300 MG Oral Capsule Gabapentin 12/01/2019 12:00:00 AM EDT ORAL completed MEDENT ([facility] ) APAP as needed completed APAP HONORIO ([facility]) APAP as needed completed APAP HONORIO ([facility]) APAP as needed completed APAP HONORIO ([facility]) APAP as needed completed APAP HONORIO ([facility]) Insurance Providers Payer name Policy type / Coverage type Policy ID Covered libertarian ID Covered libertarian's relationship to parnell Policy Parnell Plan Information [employer]AST ACTIVE DUTY [id number] SP [id number] SELF PAY ONLY [id number] PERSONAL PAY UNAVAILABLE SELF UNAVA ILABLE [place] [employer] [place] [id number] 18 [id number] [place] F [id number] SELF [id number] [place] [employer] F [id number] SELF [id number] [place] Claims F [id number] SELF [id number] [place] [employer] Commercial [id number] Self [id number] [place] [employer] [id number] 18 [id number] [facility] P [id number] SELF [id number] Problems, Conditions, and Diagnoses Code Display Name Description Problem Type Effective Dates Data Source(s) M5414 Radiculopathy, thoracic region Radiculopathy, thoracic region Diagnosis 04/22/2020 01:57:00 PM EDT [facility] Surgeries/Procedures Procedure Description Date Indications Data Source(s) MRI Lower Extremity Any Joint 01/26/2020 12:00:00 AM E DT MEDENT ([facility] ) MRI Lower Extremity Any Joint 01/26/2020 12:00:00 AM E DT MEDENT ([facility] ) XR, thoracic spine 12/31/2019 12:00:00 AM EDT HONORIO ([facility]) X-Ray Spine Lumbosacral Bending Only 2 Or 3 Views 12/01/2019 12:00:00 AM EDT MEDENT ([facility] ) Results ID Date Data Source [id number] 08/23/2020 09:28:00 AM EST SARAN Name Value Range Interpretation Code Description Data Brinda rce(s) Supporting Document(s) SARS coronavirus 2 RNA [facility] and reported by [facility]. ID Date Data Source [id number] 07/26/2020 08:45:00 AM EST [facility] Name Value Range Interpretation Code Description Data Brinda rce(s) Supporting Document(s) SARS coronavirus 2 RNA [facility] This lab [facility] and reported by [facility]. ID Date Data Source [id number] 04/23/2020 02:49:00 PM EDT [facility] [address] [place] [address] PHONE: [phone] FAX: [phone] Name .................. : MORE CONSTANZA Acct Number.................. : [id number] ROOM. ................. : Number ................... : [id number] Stay type ............. : O/P Discharge Date......... ... : 04/22/20 Admit Date .... ..... : 04/22/20 Admit Phys .................... : MIEDEMA DA Date of ....... : 1965 Family Phys ................... : UNKNOWN Phone .................. : [phone] Age ................................ : 54 Film# .................. .:[id number] Sex ................................. : M Unsigned transcriptions are preliminary reports and do not represent a medical or legal document MRI THORACIC SPINE W/O CONTRA [id number] COMPLETE:04/22/20 15:10 [facility] [id number] (SPINE PROC REASON: RADICULOPATHY MRI OF THE THORACIC SPINE WITHOUT CONTRAST: HISTORY: Radiculopathy. FINDINGS: There is no evidence for disc protrusion. The thoracic cord is normal in size and signal. The neural foramina are intact. The prevertebral soft tissues are normal. IMPRESSION: Normal examination. Electronically Reviewed and Signed By Jaime Morrow MD , 14:49, [facility] Transcribe Initials: FOREST , Transcribe Date: 04/23/20 03:26, Dictation Date: Copy for: HANNAH Manning via fax Copy for: [address] [place] [address] REC Page 1 of 1 Name Value Range Interpretation Code Description Data Brinda rce(s) Supporting Document(s) ID Date Data Source [id number] 02/05/2020 10:23:00 AM EDT MEDENT ([facility]) Name Value Range Interpretation Code Description Data Brinda rce(s) Supporting Document(s) Laboratory test finding (navigational concept) Laboratory test result MEDENT ([facility]) Procedure Vital Signs ID Date Data Source UNK Name Value Range Interpretation Code Description Data Source(s) Body height 64 [in_i] 64 [in_i] HONORIO ([facility]) Body height 64 [in_i] 64 [in_i] HONORIO ([facility]) Body height 64 [in_i] 64 [in_i] HONORIO ([facility]) Systolic blood pressure 153 mm[Hg] 153 mm[Hg] A THENA ([facility]) Body height 64 [in_i] 64 [in_i] HONORIO ([facility]) Diastolic blood pressure 99 mm[Hg] 99 mm[Hg] HONORIO ([facility]) Systolic blood pressure 153 mm[Hg] 153 mm[Hg] A THENA ([facility]) Body height 64 [in_i] 64 [in_i] HONORIO ([facility]) Diastolic blood pressure 99 mm[Hg] 99 mm[Hg] HONORIO ([facility]) Systolic blood pressure 153 mm[Hg] 153 mm[Hg] A THENA ([facility]) Body height 64 [in_i] 64 [in_i] HONORIO ([facility]) Diastolic blood pressure 99 mm[Hg] 99 mm[Hg] HONORIO ([facility]) Systolic blood pressure 153 mm[Hg] 153 mm[Hg] A THENA ([facility]) Body height 64 [in_i] 64 [in_i] HONORIO ([facility]) Diastolic blood pressure 99 mm[Hg] 99 mm[Hg] HONORIO ([facility]) Systolic blood pressure 134 mm[Hg] 134 mm[Hg] A THENA ([facility]) Body height 64 [in_i] 64 [in_i] HONORIO ([facility]) Diastolic blood pressure 89 mm[Hg] 89 mm[Hg] HONORIO ([facility]) Systolic blood pressure 134 mm[Hg] 134 mm[Hg] A THENA ([facility]) Body height 64 [in_i] 64 [in_i] HONORIO ([facility]) Diastolic blood pressure 89 mm[Hg] 89 mm[Hg] HONORIO ([facility]) Systolic blood pressure 134 mm[Hg] 134 mm[Hg] A THENA ([facility]) Body height 64 [in_i] 64 [in_i] HONORIO ([facility]) Diastolic blood pressure 89 mm[Hg] 89 mm[Hg] HONORIO ([facility]) Systolic blood pressure 134 mm[Hg] 134 mm[Hg] A THENA ([facility]) Body height 64 [in_i] 64 [in_i] HONORIO ([facility]) Diastolic blood pressure 89 mm[Hg] 89 mm[Hg] HONORIO ([facility]) Systolic blood pressure 134 mm[Hg] 134 mm[Hg] A THENA ([facility]) Body height 64 [in_i] 64 [in_i] HONORIO ([facility]) Diastolic blood pressure 89 mm[Hg] 89 mm[Hg] HONORIO ([facility]) Systolic blood pressure 134 mm[Hg] 134 mm[Hg] A THENA ([facility]) Body height 64 [in_i] 64 [in_i] HONORIO ([facility]) Diastolic blood pressure 89 mm[Hg] 89 mm[Hg] HONORIO ([facility]) Systolic blood pressure 134 mm[Hg] 134 mm[Hg] A THENA ([facility]) Body height 64 [in_i] 64 [in_i] HONORIO ([facility]) Diastolic blood pressure 89 mm[Hg] 89 mm[Hg] HONORIO ([facility]) Systolic blood pressure 134 mm[Hg] 134 mm[Hg] A THENA ([facility]) Body height 64 [in_i] 64 [in_i] HONORIO ([facility]) Diastolic blood pressure 90 mm[Hg] 90 mm[Hg] HONORIO ([facility]) Systolic blood pressure 134 mm[Hg] 134 mm[Hg] A THENA ([facility]) Body height 64 [in_i] 64 [in_i] HONORIO ([facility]) Diastolic blood pressure 90 mm[Hg] 90 mm[Hg] HONORIO ([facility]) Systolic blood pressure 134 mm[Hg] 134 mm[Hg] A THENA ([facility]) Body height 64 [in_i] 64 [in_i] HONORIO ([facility]) Diastolic blood pressure 90 mm[Hg] 90 mm[Hg] HONORIO ([facility]) Systolic blood pressure 134 mm[Hg] 134 mm[Hg] A THENA ([facility]) Body height 64 [in_i] 64 [in_i] HONORIO ([facility]) Diastolic blood pressure 90 mm[Hg] 90 mm[Hg] HONORIO ([facility]) Systolic blood pressure 134 mm[Hg] 134 mm[Hg] A THENA ([facility]) Body height 64 [in_i] 64 [in_i] HONORIO ([facility]) Diastolic blood pressure 90 mm[Hg] 90 mm[Hg] HONORIO ([facility]) Systolic blood pressure 134 mm[Hg] 134 mm[Hg] A THENA ([facility]) Body height 64 [in_i] 64 [in_i] HONORIO ([facility]) Diastolic blood pressure 90 mm[Hg] 90 mm[Hg] HONORIO ([facility]) Systolic blood pressure 134 mm[Hg] 134 mm[Hg] A THENA ([facility]) Body height 64 [in_i] 64 [in_i] HONORIO ([facility]) Diastolic blood pressure 90 mm[Hg] 90 mm[Hg] HONORIO ([facility]) Systolic blood pressure 134 mm[Hg] 134 mm[Hg] A THENA ([facility]) Body height 64 [in_i] 64 [in_i] HONORIO ([facility]) Diastolic blood pressure 90 mm[Hg] 90 mm[Hg] HONORIO ([facility]) Systolic blood pressure 122 mm[Hg] 122 mm[Hg] A THENA ([facility]) Body height 64 [in_i] 64 [in_i] HONORIO ([facility]) Diastolic blood pressure 82 mm[Hg] 82 mm[Hg] HONORIO ([facility]) Systolic blood pressure 122 mm[Hg] 122 mm[Hg] A THENA ([facility]) Body height 64 [in_i] 64 [in_i] HONORIO ([facility]) Diastolic blood pressure 82 mm[Hg] 82 mm[Hg] HONORIO ([facility]) Systolic blood pressure 122 mm[Hg] 122 mm[Hg] A THENA ([facility]) Body height 64 [in_i] 64 [in_i] HONORIO ([facility]) Diastolic blood pressure 82 mm[Hg] 82 mm[Hg] HONORIO ([facility]) Systolic blood pressure 122 mm[Hg] 122 mm[Hg] A THENA ([facility]) Body height 64 [in_i] 64 [in_i] HONORIO ([facility]) Diastolic blood pressure 82 mm[Hg] 82 mm[Hg] HONORIO ([facility]) Systolic blood pressure 122 mm[Hg] 122 mm[Hg] A THENA ([facility]) Body height 64 [in_i] 64 [in_i] HONORIO ([facility]) Diastolic blood pressure 82 mm[Hg] 82 mm[Hg] HONORIO ([facility]) Systolic blood pressure 122 mm[Hg] 122 mm[Hg] A THENA ([facility]) Body height 64 [in_i] 64 [in_i] HONORIO ([facility]) Diastolic blood pressure 82 mm[Hg] 82 mm[Hg] HONORIO ([facility]) Systolic blood pressure 122 mm[Hg] 122 mm[Hg] A THENA ([facility]) Body height 64 [in_i] 64 [in_i] HONORIO ([facility]) Diastolic blood pressure 82 mm[Hg] 82 mm[Hg] HONORIO ([facility]) Systolic blood pressure 122 mm[Hg] 122 mm[Hg] A THENA ([facility]) Body height 64 [in_i] 64 [in_i] HONORIO ([facility]) Diastolic blood pressure 82 mm[Hg] 82 mm[Hg] HONORIO ([facility]) Systolic blood pressure 122 mm[Hg] 122 mm[Hg] A THENA ([facility]) Body height 64 [in_i] 64 [in_i] HONORIO ([facility]) Diastolic blood pressure 82 mm[Hg] 82 mm[Hg] HONORIO ([facility]) Systolic blood pressure 122 mm[Hg] 122 mm[Hg] A THENA ([facility]) Body height 64 [in_i] 64 [in_i] HONORIO ([facility]) Diastolic blood pressure 82 mm[Hg] 82 mm[Hg] HONORIO ([facility]) Body height 64 [in_i] 64 [in_i] HONORIO ([facility]) Body height 64 [in_i] 64 [in_i] HONORIO ([facility]) Body height 64 [in_i] 64 [in_i] HONORIO ([facility]) Body height 64 [in_i] 64 [in_i] HONORIO ([facility]) Body height 64 [in_i] 64 [in_i] HONORIO ([facility]) Body height 64 [in_i] 64 [in_i] HONORIO ([facility]) Body height 64 [in_i] 64 [in_i] HONORIO ([facility]) Body height 64 [in_i] 64 [in_i] HONORIO ([facility]) Body height 64 [in_i] 64 [in_i] HONORIO ([facility]) Body height 64 [in_i] 64 [in_i] HONORIO ([facility]) Body height 64 [in_i] 64 [in_i] HONORIO ([facility]) Body weight 87.545 kg 87.545 kg [facility], ) Body mass index (BMI) [Ratio] 33.1 kg/m2 33.1 k g/m2 [facility] ([facility], ) Body weight 193.00 [lb_av] 193.00 [lb_av] MEDEN T ([facility], ) Body height 64 [in_i] 64 [in_i] MEDENT ([facility], ) 5'4" Diastolic blood pressure 84 mm[Hg] 84 mm[Hg] MEDENT ([facility], ) Systolic blood pressure 128 mm[Hg] 128 mm[Hg] M EDDAVID ([facility], ) Body weight 187 [lb_av] 187 [lb_av] HONORIO ([facility]) Systolic blood pressure 118 mm[Hg] 118 mm[Hg] A THENA ([facility]) Body mass index (BMI) [Ratio] 32.1 kg/m2 32.1 k g/m2 HONORIO ([facility]) Body height 64 [in_i] 64 [in_i] HONORIO ([facility]) Diastolic blood pressure 84 mm[Hg] 84 mm[Hg] HONORIO ([facility]) Body weight 187 [lb_av] 187 [lb_av] HONORIO ([facility]) Systolic blood pressure 118 mm[Hg] 118 mm[Hg] A THENA ([facility]) Body mass index (BMI) [Ratio] 32.1 kg/m2 32.1 k g/m2 HONORIO ([facility]) Body height 64 [in_i] 64 [in_i] HONORIO ([facility]) Diastolic blood pressure 84 mm[Hg] 84 mm[Hg] HONORIO ([facility]) Body weight 187 [lb_av] 187 [lb_av] HONORIO ([facility]) Systolic blood pressure 118 mm[Hg] 118 mm[Hg] A THENA ([facility]) Body mass index (BMI) [Ratio] 32.1 kg/m2 32.1 k g/m2 HONORIO ([facility]) Body height 64 [in_i] 64 [in_i] HONORIO ([facility]) Diastolic blood pressure 84 mm[Hg] 84 mm[Hg] HONORIO ([facility]) Body weight 187 [lb_av] 187 [lb_av] HONORIO ([facility]) Systolic blood pressure 118 mm[Hg] 118 mm[Hg] A THENA ([facility]) Body mass index (BMI) [Ratio] 32.1 kg/m2 32.1 k g/m2 HONORIO ([facility]) Body height 64 [in_i] 64 [in_i] HONORIO ([facility]) Diastolic blood pressure 84 mm[Hg] 84 mm[Hg] HONORIO ([facility]) Body weight 187 [lb_av] 187 [lb_av] HONORIO ([facility]) Systolic blood pressure 118 mm[Hg] 118 mm[Hg] A THENA ([facility]) Body mass index (BMI) [Ratio] 32.1 kg/m2 32.1 k g/m2 HONORIO ([facility]) Body height 64 [in_i] 64 [in_i] HONORIO ([facility]) Diastolic blood pressure 84 mm[Hg] 84 mm[Hg] HONORIO ([facility]) Body weight 187 [lb_av] 187 [lb_av] HONORIO ([facility]) Systolic blood pressure 118 mm[Hg] 118 mm[Hg] A THENA ([facility]) Body mass index (BMI) [Ratio] 32.1 kg/m2 32.1 k g/m2 HONORIO ([facility]) Body height 64 [in_i] 64 [in_i] HONORIO ([facility]) Diastolic blood pressure 84 mm[Hg] 84 mm[Hg] HONORIO ([facility]) Body weight 187 [lb_av] 187 [lb_av] HONORIO ([facility]) Systolic blood pressure 118 mm[Hg] 118 mm[Hg] A THENA ([facility]) Body mass index (BMI) [Ratio] 32.1 kg/m2 32.1 k g/m2 HONORIO ([facility]) Body height 64 [in_i] 64 [in_i] HONORIO ([facility]) Diastolic blood pressure 84 mm[Hg] 84 mm[Hg] HONORIO ([facility]) Body weight 187 [lb_av] 187 [lb_av] HONORIO ([facility]) Systolic blood pressure 118 mm[Hg] 118 mm[Hg] A THENA ([facility]) Body mass index (BMI) [Ratio] 32.1 kg/m2 32.1 k g/m2 HONORIO ([facility]) Body height 64 [in_i] 64 [in_i] HONORIO ([facility]) Diastolic blood pressure 84 mm[Hg] 84 mm[Hg] HONORIO ([facility]) Body weight 187 [lb_av] 187 [lb_av] HONORIO ([facility]) Systolic blood pressure 118 mm[Hg] 118 mm[Hg] A THENA ([facility]) Body mass index (BMI) [Ratio] 32.1 kg/m2 32.1 k g/m2 HONORIO ([facility]) Body height 64 [in_i] 64 [in_i] HONORIO ([facility]) Diastolic blood pressure 84 mm[Hg] 84 mm[Hg] HONORIO ([facility]) Body weight 187 [lb_av] 187 [lb_av] HONORIO ([facility]) Systolic blood pressure 118 mm[Hg] 118 mm[Hg] A THENA ([facility]) Body mass index (BMI) [Ratio] 32.1 kg/m2 32.1 k g/m2 HONORIO ([facility]) Body height 64 [in_i] 64 [in_i] HONORIO ([facility]) Diastolic blood pressure 84 mm[Hg] 84 mm[Hg] HONORIO ([facility]) Body weight 187 [lb_av] 187 [lb_av] HONORIO ([facility]) Systolic blood pressure 118 mm[Hg] 118 mm[Hg] A THENA ([facility]) Body mass index (BMI) [Ratio] 32.1 kg/m2 32.1 k g/m2 HONORIO ([facility]) Body height 64 [in_i] 64 [in_i] HONORIO ([facility]) Diastolic blood pressure 84 mm[Hg] 84 mm[Hg] HONORIO ([facility]) Body weight 187 [lb_av] 187 [lb_av] HONORIO ([facility]) Systolic blood pressure 118 mm[Hg] 118 mm[Hg] A THENA ([facility]) Body mass index (BMI) [Ratio] 32.1 kg/m2 32.1 k g/m2 HONORIO ([facility]) Body height 64 [in_i] 64 [in_i] HONORIO ([facility]) Diastolic blood pressure 84 mm[Hg] 84 mm[Hg] HONORIO ([facility]) Body mass index (BMI) [Ratio] 31.4 kg/m2 31.4 k g/m2 MEDENT ([facility]) Body weight 183.00 [lb_av] 183.00 [lb_av] MEDEN T ([facility]) Body height 64 [in_i] 64 [in_i] MEDENT ([facility]) 5'4" Body temperature 97.8 [degF] 97.8 [degF] MEDENT ([facility]) Body height 64 [in_i] 64 [in_i] HONORIO ([facility]) Body height 64 [in_i] 64 [in_i] HONORIO ([facility]) Body height 64 [in_i] 64 [in_i] HONORIO ([facility]) Body height 64 [in_i] 64 [in_i] HONORIO ([facility]) Body height 64 [in_i] 64 [in_i] HONORIO ([facility]) Body height 64 [in_i] 64 [in_i] HONORIO ([facility]) Body height 64 [in_i] 64 [in_i] HONORIO ([facility]) Body height 64 [in_i] 64 [in_i] HONORIO ([facility]) Body height 64 [in_i] 64 [in_i] HONORIO ([facility]) Body height 64 [in_i] 64 [in_i] HONORIO ([facility]) Body height 64 [in_i] 64 [in_i] HONORIO ([facility]) Body height 64 [in_i] 64 [in_i] HONORIO ([facility]) Body height 64 [in_i] 64 [in_i] HONORIO ([facility]) Body mass index (BMI) [Ratio] 31.2 kg/m2 31.2 k g/m2 MEDENT ([facility]) Body weight 187.25 [lb_av] 187.25 [lb_av] MEDEN T ([facility]) Body height 65 [in_i] 65 [in_i] MEDENT ([facility]) 5'5" Body temperature 97.8 [degF] 97.8 [degF] MEDENT ([facility]) Systolic blood pressure 157 mm[Hg] 157 mm[Hg] A THENA ([facility]) Body height 64 [in_i] 64 [in_i] HONORIO ([facility]) Diastolic blood pressure 84 mm[Hg] 84 mm[Hg] HONORIO ([facility]) Systolic blood pressure 157 mm[Hg] 157 mm[Hg] A THENA ([facility]) Body height 64 [in_i] 64 [in_i] HONORIO ([facility]) Diastolic blood pressure 84 mm[Hg] 84 mm[Hg] HONORIO ([facility]) Systolic blood pressure 157 mm[Hg] 157 mm[Hg] A THENA ([facility]) Body height 64 [in_i] 64 [in_i] HONORIO ([facility]) Diastolic blood pressure 84 mm[Hg] 84 mm[Hg] HONORIO ([facility]) Systolic blood pressure 157 mm[Hg] 157 mm[Hg] A THENA ([facility]) Body height 64 [in_i] 64 [in_i] HONORIO ([facility]) Diastolic blood pressure 84 mm[Hg] 84 mm[Hg] HONORIO ([facility]) Systolic blood pressure 157 mm[Hg] 157 mm[Hg] A THENA ([facility]) Body height 64 [in_i] 64 [in_i] HONORIO ([facility]) Diastolic blood pressure 84 mm[Hg] 84 mm[Hg] HONORIO ([facility]) Systolic blood pressure 157 mm[Hg] 157 mm[Hg] A THENA ([facility]) Body height 64 [in_i] 64 [in_i] HONORIO ([facility]) Diastolic blood pressure 84 mm[Hg] 84 mm[Hg] HONORIO ([facility]) Systolic blood pressure 157 mm[Hg] 157 mm[Hg] A THENA ([facility]) Body height 64 [in_i] 64 [in_i] HONORIO ([facility]) Diastolic blood pressure 84 mm[Hg] 84 mm[Hg] HONORIO ([facility]) Systolic blood pressure 157 mm[Hg] 157 mm[Hg] A THENA ([facility]) Body height 64 [in_i] 64 [in_i] HONORIO ([facility]) Diastolic blood pressure 84 mm[Hg] 84 mm[Hg] HONORIO ([facility]) Systolic blood pressure 157 mm[Hg] 157 mm[Hg] A THENA ([facility]) Body height 64 [in_i] 64 [in_i] HONORIO ([facility]) Diastolic blood pressure 84 mm[Hg] 84 mm[Hg] HONORIO ([facility]) Systolic blood pressure 157 mm[Hg] 157 mm[Hg] A THENA ([facility]) Body height 64 [in_i] 64 [in_i] HONORIO ([facility]) Diastolic blood pressure 84 mm[Hg] 84 mm[Hg] HONORIO ([facility]) Systolic blood pressure 157 mm[Hg] 157 mm[Hg] A THENA ([facility]) Body height 64 [in_i] 64 [in_i] HONORIO ([facility]) Diastolic blood pressure 84 mm[Hg] 84 mm[Hg] HONORIO ([facility]) Systolic blood pressure 157 mm[Hg] 157 mm[Hg] A THENA ([facility]) Body height 64 [in_i] 64 [in_i] HONORIO ([facility]) Diastolic blood pressure 84 mm[Hg] 84 mm[Hg] HONORIO ([facility]) Systolic blood pressure 157 mm[Hg] 157 mm[Hg] A THENA ([facility]) Body height 64 [in_i] 64 [in_i] HONORIO ([facility]) Diastolic blood pressure 84 mm[Hg] 84 mm[Hg] HONORIO ([facility]) Systolic blood pressure 157 mm[Hg] 157 mm[Hg] A THENA ([facility]) Body height 64 [in_i] 64 [in_i] HONORIO ([facility]) Diastolic blood pressure 84 mm[Hg] 84 mm[Hg] HONORIO ([facility]) Systolic blood pressure 157 mm[Hg] 157 mm[Hg] A THENA ([facility]) Body height 64 [in_i] 64 [in_i] HONORIO ([facility]) Diastolic blood pressure 84 mm[Hg] 84 mm[Hg] HONORIO ([facility]) Body weight 187 [lb_av] 187 [lb_av] HONORIO ([facility]) Systolic blood pressure 134 mm[Hg] 134 mm[Hg] A THENA ([facility]) Body mass index (BMI) [Ratio] 32.1 kg/m2 32.1 k g/m2 HONORIO ([facility]) Body height 64 [in_i] 64 [in_i] HONORIO ([facility]) Diastolic blood pressure 81 mm[Hg] 81 mm[Hg] HONORIO ([facility]) Body weight 187 [lb_av] 187 [lb_av] HONORIO ([facility]) Systolic blood pressure 134 mm[Hg] 134 mm[Hg] A THENA ([facility]) Body mass index (BMI) [Ratio] 32.1 kg/m2 32.1 k g/m2 HONORIO ([facility]) Body height 64 [in_i] 64 [in_i] HONORIO ([facility]) Diastolic blood pressure 81 mm[Hg] 81 mm[Hg] HONORIO ([facility]) Body weight 187 [lb_av] 187 [lb_av] HONORIO ([facility]) Systolic blood pressure 134 mm[Hg] 134 mm[Hg] A THENA ([facility]) Body mass index (BMI) [Ratio] 32.1 kg/m2 32.1 k g/m2 HONORIO ([facility]) Body height 64 [in_i] 64 [in_i] HONORIO ([facility]) Diastolic blood pressure 81 mm[Hg] 81 mm[Hg] HONORIO ([facility]) Body weight 187 [lb_av] 187 [lb_av] HONORIO ([facility]) Systolic blood pressure 134 mm[Hg] 134 mm[Hg] A THENA ([facility]) Body mass index (BMI) [Ratio] 32.1 kg/m2 32.1 k g/m2 HONORIO ([facility]) Body height 64 [in_i] 64 [in_i] HONORIO ([facility]) Diastolic blood pressure 81 mm[Hg] 81 mm[Hg] HONORIO ([facility]) Body weight 187 [lb_av] 187 [lb_av] HONORIO ([facility]) Systolic blood pressure 134 mm[Hg] 134 mm[Hg] A THENA ([facility]) Body mass index (BMI) [Ratio] 32.1 kg/m2 32.1 k g/m2 HONORIO ([facility]) Body height 64 [in_i] 64 [in_i] HONORIO ([facility]) Diastolic blood pressure 81 mm[Hg] 81 mm[Hg] HONORIO ([facility]) Body weight 187 [lb_av] 187 [lb_av] HONORIO ([facility]) Systolic blood pressure 134 mm[Hg] 134 mm[Hg] A THENA ([facility]) Body mass index (BMI) [Ratio] 32.1 kg/m2 32.1 k g/m2 HONORIO ([facility]) Body height 64 [in_i] 64 [in_i] HONORIO ([facility]) Diastolic blood pressure 81 mm[Hg] 81 mm[Hg] HONORIO ([facility]) Body weight 187 [lb_av] 187 [lb_av] HONORIO ([facility]) Systolic blood pressure 134 mm[Hg] 134 mm[Hg] A THENA ([facility]) Body mass index (BMI) [Ratio] 32.1 kg/m2 32.1 k g/m2 HONORIO ([facility]) Body height 64 [in_i] 64 [in_i] HONORIO ([facility]) Diastolic blood pressure 81 mm[Hg] 81 mm[Hg] HONORIO ([facility]) Body weight 187 [lb_av] 187 [lb_av] HONORIO ([facility]) Systolic blood pressure 134 mm[Hg] 134 mm[Hg] A THENA ([facility]) Body mass index (BMI) [Ratio] 32.1 kg/m2 32.1 k g/m2 HONORIO ([facility]) Body height 64 [in_i] 64 [in_i] HONORIO ([facility]) Diastolic blood pressure 81 mm[Hg] 81 mm[Hg] HONORIO ([facility]) Body weight 187 [lb_av] 187 [lb_av] HONORIO ([facility]) Systolic blood pressure 134 mm[Hg] 134 mm[Hg] A THENA ([facility]) Body mass index (BMI) [Ratio] 32.1 kg/m2 32.1 k g/m2 HONORIO ([facility]) Body height 64 [in_i] 64 [in_i] HONORIO ([facility]) Diastolic blood pressure 81 mm[Hg] 81 mm[Hg] HONORIO ([facility]) Body weight 187 [lb_av] 187 [lb_av] HONORIO ([facility]) Systolic blood pressure 134 mm[Hg] 134 mm[Hg] A THENA ([facility]) Body mass index (BMI) [Ratio] 32.1 kg/m2 32.1 k g/m2 HONORIO ([facility]) Body height 64 [in_i] 64 [in_i] HONORIO ([facility]) Diastolic blood pressure 81 mm[Hg] 81 mm[Hg] HONORIO ([facility]) Body weight 187 [lb_av] 187 [lb_av] HONORIO ([facility]) Systolic blood pressure 134 mm[Hg] 134 mm[Hg] A THENA ([facility]) Body mass index (BMI) [Ratio] 32.1 kg/m2 32.1 k g/m2 HONORIO ([facility]) Body height 64 [in_i] 64 [in_i] HONORIO ([facility]) Diastolic blood pressure 81 mm[Hg] 81 mm[Hg] HONORIO ([facility]) Body weight 187 [lb_av] 187 [lb_av] HONORIO ([facility]) Systolic blood pressure 134 mm[Hg] 134 mm[Hg] A THENA ([facility]) Body mass index (BMI) [Ratio] 32.1 kg/m2 32.1 k g/m2 HONORIO ([facility]) Body height 64 [in_i] 64 [in_i] HONORIO ([facility]) Diastolic blood pressure 81 mm[Hg] 81 mm[Hg] HONORIO ([facility]) Systolic blood pressure 134 mm[Hg] 134 mm[Hg] A THENA ([facility]) Body mass index (BMI) [Ratio] 32.1 kg/m2 32.1 k g/m2 HONORIO ([facility]) Body height 64 [in_i] 64 [in_i] HONORIO ([facility]) Diastolic blood pressure 81 mm[Hg] 81 mm[Hg] HONORIO ([facility]) Body weight 187 [lb_av] 187 [lb_av] HONORIO ([facility]) Systolic blood pressure 134 mm[Hg] 134 mm[Hg] A THENA ([facility]) Body mass index (BMI) [Ratio] 32.1 kg/m2 32.1 k g/m2 HONORIO ([facility]) Body height 64 [in_i] 64 [in_i] HONORIO ([facility]) Diastolic blood pressure 81 mm[Hg] 81 mm[Hg] HONORIO ([facility]) Body weight 187 [lb_av] 187 [lb_av] HONORIO ([facility]) Systolic blood pressure 134 mm[Hg] 134 mm[Hg] A THENA ([facility]) Body mass index (BMI) [Ratio] 32.1 kg/m2 32.1 k g/m2 HONORIO ([facility]) Body height 64 [in_i] 64 [in_i] HONORIO ([facility]) Diastolic blood pressure 81 mm[Hg] 81 mm[Hg] HONORIO ([facility]) Body weight 187 [lb_av] 187 [lb_av] HONORIO ([facility]) Systolic blood pressure 134 mm[Hg] 134 mm[Hg] A THENA ([facility]) Body mass index (BMI) [Ratio] 32.1 kg/m2 32.1 k g/m2 HONORIO ([facility]) Body height 64 [in_i] 64 [in_i] HONORIO ([facility]) Diastolic blood pressure 81 mm[Hg] 81 mm[Hg] HONORIO ([facility]) Body weight 187 [lb_av] 187 [lb_av] HONORIO ([facility]) Systolic blood pressure 134 mm[Hg] 134 mm[Hg] A THENA ([facility]) Body mass index (BMI) [Ratio] 32.1 kg/m2 32.1 k g/m2 HONORIO ([facility]) Body height 64 [in_i] 64 [in_i] HONORIO ([facility] [facility] Diastolic blood pressure 81 mm[Hg] 81 mm[Hg] HONORIO ([facility]) Body weight 187 [lb_av] 187 [lb_av] [facility]ON[facility] ([facility]) ID Date Data Source [id number] 10/29/2020 08:44:34 AM EST [facility] Name Value Range Interpretation Code Description Data Source(s) status [Interpretation] - Reported N N [facility] Patient Treatment Plan of Care Planned Activity Planned Date Details Description Data Source (s) APAP as needed HONORIO ([facility]) APAP as needed HONORIO ([facility]) APAP as needed HONORIO ([facility]) APAP as needed HONORIO ([facility])
[2020-10-29] MEDS ORDERED: KETO10TAB PO (17:36)
[2020-10-29] MEDS ORDERED: SUCR1TA PO (17:36)
[2020-10-29 17:45] VITALS: BP 145/91
[2020-10-29] MEDS ORDERED: KETOROLAC 30 MG/ML 1ML VIAL IV ONE (17:45)
--- NOTE | 2020-10-29 20:12 | ECGEPIP ---
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
== END 2020-10-29 18:33 | disposition home or self-care (01) ==
LOC: M ED 12:53 → EDBD 12:53 → M ED 18:33
DX: R07.89 Other chest pain (principal); M62.82 Rhabdomyolysis; Z91.89 Other specified personal risk factors, not elsewhere classified; Z91.013 Allergy to seafood
CPT/HCPCS: 71046; 80048; 80076; 82550; 82553; 83690; 84439; 84443; 84484; 85025; 85610; 85730; 93005; 93041; 94760; 96361; 96374; 99285; J1885

== ENCOUNTER 2020-11-19 15:57 | Emergency (ER) | payer OTHER ==
[~2020-11-19] VITALS: Ht 165.1 cm; Wt 86.5 kg
[~2020-11-19 15:57] MED LIST: ACET-683 PO; KETO10TAB PO; SUCR1TA PO; TIZA4CAP PO; TRAZ1TAB11 PO
[2020-11-19] MEDS ORDERED: MELO15TA28 PO (16:04)
--- OUTSIDE RECORDS SUMMARY | 2020-11-19 16:04 | CCD ---
Author Organization Unknown Address [address] [place] [address] Phone [phone] Care Team Providers Care Community Service Technician Name Role Phone [facility] [place] 3 [phone] Allergies Code Code System Name Reaction Severity Status Onset 5933 RxNorm Iodine Other Active Shellfish Derived Other Active Notes: raw seafood Medications Name Status Start Date Stop Date APAP as needed Completed 08/10/2020 Cymbalta 30 mg capsule,delayed release Take 1 capsule every day by oral route. Completed 09/21/2020 Cymbalta 60 mg capsule,delayed release Take 1 capsule every day by oral route. Active Not available ketorolac 10 mg tablet TAKE 1 TABLET BY MOUTH EVERY 6 HOURS NEEDED FOR PAIN Active Not available meloxicam 15 mg tablet Take 1 tablet every day by oral route. Active Not available sucralfate 1 gram tablet TAKE 1 TABLET BY MOUTH 4 TIMES DAILY Active No t available tizanidine one tablet by mouth Completed [...] not a vailable 12/31/2019 XR, Thoracic Spine [facility] [address] [place], [place] [id number] (Work Place) 04/06/2020 MRI, Thoracic Spine, W/o Contrast [facility] [address] [place] [address] (Work Place) Results Lab Results None recorded. Past Encounters 11/09/2020 Lumbar Radiculopathy; Degeneration of Lumbar Intervertebral Disc; Degeneration of Lumbosacral Intervertebral Disc; Displacement of Lumbar Intervertebral Disc without Myelopathy; Intervertebral Disc Disorder; Spondylosis without Myelopathy; Lumbosacral Spondylosis without Myelopathy; Myofascial Pain; Pain in Thoracic Spine; Thoracic Radiculopathy; Thoracic Spondylosis without Myelopathy Christine Rachid Kareem BATTER MIXER HELPER: [id number] [address], Ph. 09/21/2020 Lumbar Radiculopathy; Degeneration of Lumbar Intervertebral Disc; Degeneration of Lumbosacral Intervertebral Disc; Displacement of Lumbar Intervertebral Disc without Myelopathy; Intervertebral Disc Disorder; Spondylosis without Myelopathy; Lumbosacral Spondylosis without Myelopathy; Myofascial Pain; Pain in Thoracic Spine; Thoracic Radiculopathy; Thoracic Spondylosis without Myelopathy Christine Luiszoe Kareem BATTER MIXER HELPER: [id number] [address], Ph. 08/26/2020 Lumbosacral Spondylosis without Myelopathy; Spondylosis without Myelopathy; Degeneration of Lumbar Intervertebral Disc; Degeneration of Lumbosacral Intervertebral Disc; Displacement of Lumbar Intervertebral Disc without Myelopathy; Intervertebral Disc Disorder; Lumbar Radiculopathy; Myofascial Pain; Pain in Thoracic Spine; Thoracic Radiculopathy; Thoracic Spondylosis without Myelopathy Pepito Griffiths MD: [id number] [address], Ph. 08/17/2020 Myofascial Pain; Lumbar Radiculopathy; Degeneration of Lumbar Intervertebral Disc; Degeneration of Lumbosacral Intervertebral Disc; Displacement of Lumbar Intervertebral Disc without Myelopathy; Intervertebral Disc Disorder; Spondylosis without Myelopathy; Lumbosacral Spondylosis without Myelopathy; Pain in Thoracic Spine; Thoracic Radiculopathy; Thoracic Spondylosis without Myelopathy Pepito Griffiths MD: [id number] [address], [place] [address], Ph. 08/10/2020 Lumbar Radiculopathy; Degeneration of Lumbar Intervertebral Disc; Degeneration of Lumbosacral Intervertebral Disc; Displacement of Lumbar Intervertebral Disc without Myelopathy; Intervertebral Disc Disorder; Spondylosis without Myelopathy; Lumbosacral Spondylosis without Myelopathy; Myofascial Pain; Pain in Thoracic Spine; Thoracic Radiculopathy; Thoracic Spondylosis without Myelopathy Christine Serna NP: [id number] [address], Ph. 07/29/2020 Lumbosacral Spondylosis without Myelopathy; Spondylosis without Myelopathy; Degeneration of Lumbar Intervertebral Disc; Degeneration of Lumbosacral Intervertebral Disc; Displacement of Lumbar Intervertebral Disc without Myelopathy; Lumbar Radiculopathy; Intervertebral Disc Disorder; Myofascial Pain; Pain in Thoracic Spine; Thoracic Radiculopathy; Thoracic Spondylosis without Myelopathy Pepito Griffiths MD: [id number] [address], Ph. 07/15/2020 Thoracic Spondylosis without Myelopathy; Lumbar Radiculopathy; Degeneration of Lumbar Intervertebral Disc; Degeneration of Lumbosacral Intervertebral Disc; Displacement of Lumbar Intervertebral Disc without Myelopathy; Intervertebral Disc Disorder; Spondylosis without Myelopathy; Lumbosacral Spondylosis without Myelopathy; Myofascial Pain; Thoracic Radiculopathy Pepito Griffiths MD: [id number] [address], Ph. 07/01/2020 Lumbosacral Spondylosis without Myelopathy; Spondylosis without Myelopathy; Degeneration of Lumbar Intervertebral Disc; Degeneration of Lumbosacral Intervertebral Disc; Displacement of Lumbar Intervertebral Disc without Myelopathy; Lumbar Radiculopathy; Intervertebral Disc Disorder; Myofascial Pain; Pain in Thoracic Spine; Thoracic Radiculopathy; Thoracic Spondylosis without Myelopathy Pepito Griffiths MD: [id number] [address], Ph. 06/24/2020 Lumbar Radiculopathy; Degeneration of Lumbar Intervertebral Disc; Degeneration of Lumbosacral Intervertebral Disc; Displacement of Lumbar Intervertebral Disc without Myelopathy; Intervertebral Disc Disorder; Spondylosis without Myelopathy; Lumbosacral Spondylosis without Myelopathy; Myofascial Pain; Pain in Thoracic Spine; Thoracic Radiculopathy; Thoracic Spondylosis without Myelopathy Christine Serna, BATTER MIXER HELPER: [id number] [address], [place] [address], Ph. 05/13/2020 Lumbar Radiculopathy; Degeneration of Lumbar Intervertebral Disc; Degeneration of Lumbosacral Intervertebral Disc; Displacement of Lumbar Intervertebral Disc without Myelopathy; Intervertebral Disc Disorder; Spondylosis without Myelopathy; Lumbosacral Spondylosis without Myelopathy; Myofascial Pain; Pain in Thoracic Spine; Thoracic Radiculopathy; Thoracic Spondylosis without Myelopathy Christine Serna, BATTER MIXER HELPER: [id number] [address], Ph. 04/28/2020 Thoracic Spondylosis without Myelopathy; Lumbar Radiculopathy; Degeneration of Lumbar Intervertebral Disc; Degeneration of Lumbosacral Intervertebral Disc; Displacement of Lumbar Intervertebral Disc without Myelopathy; Intervertebral Disc Disorder; Spondylosis without Myelopathy; Lumbosacral Spondylosis without Myelopathy; Myofascial Pain; Thoracic Radiculopathy Pepito Griffiths MD: [id number] [address], Ph. 04/06/2020 Lumbar Radiculopathy; Degeneration of Lumbar Intervertebral Disc; Degeneration of Lumbosacral Intervertebral Disc; Displacement of Lumbar Intervertebral Disc without Myelopathy; Intervertebral Disc Disorder; Spondylosis without Myelopathy; Lumbosacral Spondylosis without Myelopathy; Myofascial Pain; Pain in Thoracic Spine; Thoracic Radiculopathy; Thoracic Spondylosis without Myelopathy Christine Serna, BATTER MIXER HELPER: [id number] [address], Ph. 03/23/2020 Myofascial Pain; Lumbar Radiculopathy; Degeneration of Lumbar Intervertebral Disc; Degeneration of Lumbosacral Intervertebral Disc; Displacement of Lumbar Intervertebral Disc without Myelopathy; Intervertebral Disc Disorder; Spondylosis without Myelopathy; Lumbosacral Spondylosis without Myelopathy; Pain in Thoracic Spine; Degeneration of Thoracic Intervertebral Disc; Thoracic Spondylosis without Myelopathy Pepito Griffiths MD: [id number] [address], Ph. 01/14/2020 Lumbar Radiculopathy; Degeneration of Lumbar Intervertebral Disc; Degeneration of Lumbosacral Intervertebral Disc; Displacement of Lumbar Intervertebral Disc without Myelopathy; Intervertebral Disc Disorder; Spondylosis without Myelopathy; Lumbosacral Spondylosis without Myelopathy; Myofascial Pain; Pain in Thoracic Spine Christine Serna BATTER MIXER HELPER: [id number] [place] [address], Ph. 12/31/2019 Lumbar Radiculopathy; Degeneration of Lumbar Intervertebral Disc; Degeneration of Lumbosacral Intervertebral Disc; Displacement of Lumbar Intervertebral Disc without Myelopathy; Intervertebral Disc Disorder; Spondylosis without Myelopathy; Lumbosacral Spondylosis without Myelopathy; Myofascial Pain; Pain in Thoracic Spine Christine Serna BATTER MIXER HELPER: [id number] [address], Ph. 11/25/2019 Myofascial Pain; Lumbar Radiculopathy; Degeneration of Lumbar Intervertebral Disc; Degeneration of Lumbosacral Intervertebral Disc; Displacement of Lumbar Intervertebral Disc without Myelopathy; Intervertebral Disc Disorder; Spondylosis without Myelopathy; Lumbosacral Spondylosis without Myelopathy ePpito Griffiths MD: [id number] [address], Ph. 10/28/2019 Lumbar Radiculopathy; Degeneration of Lumbar Intervertebral Disc; Degeneration of Lumbosacral Intervertebral Disc; Displacement of Lumbar Intervertebral Disc without Myelopathy; Intervertebral Disc Disorder; Spondylosis without Myelopathy; Lumbosacral Spondylosis without Myelopathy; Myofascial Pain Christine Serna BATTER MIXER HELPER: [id number] [address], Ph. 09/30/2019 Lumbar Radiculopathy; Degeneration of Lumbar Intervertebral Disc; Degeneration of Lumbosacral Intervertebral Disc; Displacement of Lumbar Intervertebral Disc without Myelopathy; Intervertebral Disc Disorder; Spondylosis without Myelopathy; Lumbosacral Spondylosis without Myelopathy; Myofascial Pain Pepito Griffiths MD: [id number] [address], Ph. 09/09/2019 Lumbar Radiculopathy; Degeneration of Lumbar Intervertebral Disc; Degeneration of Lumbosacral Intervertebral Disc; Displacement of Lumbar Intervertebral Disc without Myelopathy; Intervertebral Disc Disorder; Spondylosis without Myelopathy; Lumbosacral Spondylosis without Myelopathy; Myofascial Pain Christine Serna, BATTER MIXER HELPER: [id number] [address], Ph. 07/29/2019 Lumbar Radiculopathy; Degeneration of Lumbar Intervertebral Disc; Degeneration of Lumbosacral Intervertebral Disc; Displacement of Lumbar Intervertebral Disc without Myelopathy; Intervertebral Disc Disorder; Spondylosis without Myelopathy; Lumbosacral Spondylosis without Myelopathy; Myofascial Pain Pepito Griffiths MD: [id number] [address], Ph. 07/02/2019 Lumbar Radiculopathy; Degeneration of Lumbar Intervertebral Disc; Degeneration of Lumbosacral Intervertebral Disc; Displacement of Lumbar Intervertebral Disc without Myelopathy; Intervertebral Disc Disorder; Spondylosis without Myelopathy; Lumbosacral Spondylosis without Myelopathy; Myofascial Pain Christine Serna, BATTER MIXER HELPER: [id number] [address], Ph. 06/12/2019 Lumbar Radiculopathy; Degeneration of Lumbar Intervertebral Disc; Degeneration of Lumbosacral Intervertebral Disc; Displacement of Lumbar Intervertebral Disc without Myelopathy; Intervertebral Disc Disorder; Spondylosis without Myelopathy; Lumbosacral Spondylosis without Myelopathy Pepito Griffiths MD: [id number] [address], Ph. 05/29/2019 Lumbar Radiculopathy; Degeneration of Lumbar Intervertebral Disc; Degeneration of Lumbosacral Intervertebral Disc; Displacement of Lumbar Intervertebral Disc without Myelopathy; Intervertebral Disc Disorder; Spondylosis without Myelopathy; Lumbosacral Spondylosis without Myelopathy Pepito Griffiths MD: [id number] [address], [place] [address], Ph. 05/14/2019 Lumbar Radiculopathy; Degeneration of Lumbar Intervertebral Disc; Degeneration of Lumbosacral Intervertebral Disc; Displacement of Lumbar Intervertebral Disc without Myelopathy; Intervertebral Disc Disorder; Spondylosis without Myelopathy; Lumbosacral Spondylosis without Myelopathy Pepito Griffiths MD: [id number] [address], [place] [address], Ph. 04/29/2019 Lumbar Radiculopathy; Degeneration of Lumbar Intervertebral Disc; Degeneration of Lumbosacral Intervertebral Disc; Displacement of Lumbar Intervertebral Disc without Myelopathy; Intervertebral Disc Disorder; Spondylosis without Myelopathy; Lumbosacral Spondylosis without Myelopathy Pepito Griffiths MD: [id number] [address], [place] [address], Ph. Social History Tobacco Smoking Status Former Smoker Notes: quit 1996 Vaccine List None recorded. Plan of Care Reminders Provider Appointments None recorded. Lab None recorded. Referral None recorded. Procedures None recorded. Surgeries None recorded. Imaging None recorded. Vitals 11/09/2020 02:15PM FOLLOW-UP Height Weight Blood Pressure 5 ft 4 in 149/105 mm[Hg] 09/21/2020 03:30PM FOLLOW-UP Height Blood Pressure 5 ft 4 in 144/92 mm[Hg] 08/17/2020 04:00PM Trigger point injections Height 5 [...]
--- OUTSIDE RECORDS SUMMARY | 2020-11-19 16:06 | CCD ---
Author Author [facility] Organization [facility] Address Unknown Phone Unavailable Care Team Providers Care Coke Crusher Operator Name Role Phone Jumalon, M Christine SOFTWARE PUBLISHER Unavailable Unavailable Jumalon, M Christine SOFTWARE PUBLISHER Unavailable Unavailable Jumalon, M Christine SOFTWARE PUBLISHER Unavailable Unavailable Jumalon, M Christine SOFTWARE PUBLISHER Unavailable Unavailable Jumalon, M Christine SOFTWARE PUBLISHER Unavailable Unavailable Jumalon, M Christine SOFTWARE PUBLISHER Unavailable Unavailable Jumalon, M Christine SOFTWARE PUBLISHER Unavailable Unavailable Jumalon, M Christine SOFTWARE PUBLISHER Unavailable Unavailable Jumalon, M Christine SOFTWARE PUBLISHER Unavailable Unavailable Jumalon, M Christine SOFTWARE PUBLISHER Unavailable Unavailable Jumalon, M Christine SOFTWARE PUBLISHER Unavailable Unavailable Jumalon, M Christine SOFTWARE PUBLISHER Unavailable Unavailable Jumalon, M Christine SOFTWARE PUBLISHER Unavailable Unavailable Jumalon, M Christine SOFTWARE PUBLISHER Unavailable Unavailable Jumalon, M Christine SOFTWARE PUBLISHER Unavailable Unavailable Jumalon, M Christine SOFTWARE PUBLISHER Unavailable Unavailable Jumalon, M Christine SOFTWARE PUBLISHER Unavailable Unavailable Jumalon, M Christine SOFTWARE PUBLISHER Unavailable Unavailable Jumalon, M Christine SOFTWARE PUBLISHER Unavailable Unavailable Jumalon, M Christine SOFTWARE PUBLISHER Unavailable Unavailable Jumalon, M Christine SOFTWARE PUBLISHER Unavailable Unavailable Jumalon, M Christine SOFTWARE PUBLISHER Unavailable Unavailable Jumalon, M Christine SOFTWARE PUBLISHER Unavailable Unavailable Jumalon, M Christine SOFTWARE PUBLISHER Unavailable Unavailable Jumalon, M Christine SOFTWARE PUBLISHER Unavailable Unavailable Jumalon, M Christine SOFTWARE PUBLISHER Unavailable Unavailable Jumalon, M Christine SOFTWARE PUBLISHER Unavailable Unavailable Jumalon, M Christine SOFTWARE PUBLISHER Unavailable Unavailable Fish, B Philipp SCOTT Unavailable [...] Philipp SCOTT Unavailable Unavailable Hill, E Katelynn SOFTWARE PUBLISHER-BC Unavailable Unavailable Hill, E Katelynn SOFTWARE PUBLISHER-BC Unavailable Unavailable Hill, E Katelynn SOFTWARE PUBLISHER-BC Unavailable Unavailable Hill, E Katelynn SOFTWARE PUBLISHER-BC Unavailable Unavailable Hill, E Katelynn SOFTWARE PUBLISHER-BC Unavailable Unavailable Hill, E Katelynn SOFTWARE PUBLISHER-BC Unavailable Unavailable Hill, E Katelynn SOFTWARE PUBLISHER-BC Unavailable Unavailable Hill, E Katelynn SOFTWARE PUBLISHER-BC Unavailable Unavailable Hill, E Katelynn SOFTWARE PUBLISHER-BC Unavailable Unavailable Hill, E Katelynn SOFTWARE PUBLISHER-BC Unavailable Unavailable Hill, E Katelynn SOFTWARE PUBLISHER-BC Unavailable Unavailable Hill, E Katelynn SOFTWARE PUBLISHER-BC Unavailable Unavailable Hill, E Katelynn SOFTWARE PUBLISHER-BC Unavailable Unavailable Hill, E Katelynn SOFTWARE PUBLISHER-BC Unavailable Unavailable Hill, E Katelynn SOFTWARE PUBLISHER-BC Unavailable Unavailable Hill, E Katelynn SOFTWARE PUBLISHER-BC Unavailable Unavailable Hill, E Katelynn SOFTWARE PUBLISHER-BC Unavailable Unavailable Miedema, Kerri Vazquez MD Unavailable [...] Kerri Vazquez MD Unavailable Unavailable Miedema, Kerri Vazuqez MD Unavailable Unavailable Miedema, Kerri Vazquez MD [...] Unavailable Marroquin, L Xavier MD Unavailable Unavailable Marrouqin, L Xavier MD Unavailable Unavailable Marroquin, L [...] Unavailable Marroquin, L Xavier MD Unavailable Unavailable Marrouqin, L Xavier MD Unavailable Unavailable Marroquin, L [...] is protected by Article 27-F of the [facility] Public Health law. If you continue you may have access to information: Regarding HIV / AIDS; Provided by facilities licensed or operated by the [facility] Office of Mental Health; or Provided by the [facility] Office for People With Developmental Disabilities. If such information is present, then the following [facility] mandated warning applies: This information has [...] law may result in a fine or senior living sentence or both. A general authorization for the release of medical or other information is NOT sufficient authorization for further disc losure. Allergies and Adverse Reactions Type Description Substance Reaction Status Data Source(s ) Food allergy SEAFOOD; BLACK SAUCE SEAFOOD; BLACK SAUCE [facility] Drug allergy IODINE IODINE REDNESS [facility] Family History Family Member Name Family Member Gender Family Member Status Date o f Status Description Data Source(s) Unknown Male Problem [facility] ([facility]) Encounters Encounter Providers Location Date Indications Data Source(s ) Outpatient 11/22/2020 12:00:00 AM EST [facility] Christine Serna, CLOTHESPIN MACHINE OPERATOR: [address], [place] [address], Ph. Attender: Christine DÍAZ [facility] Office 11/09/2020 12:00:00 AM EST [facility] NA ([facility]) Outpatient Attender: Katelynn DÍAZ-BCAdmitter: Katelynn DÍAZ-BC OP-OP 11/05/2020 01:00:00 PM EST - 11/05/2020 11:59:00 PM EST [facility] Patient discharged. Christine Uribelaurynzoe Kareem, CLOTHESPIN MACHINE OPERATOR: [address], [place] [address], Ph. Attender: Christine DÍAZ [facility] 09/21/2020 12:00:00 AM EST ATHE NA ([facility]) Pepito Griffiths MD: [address], [place] [address], Ph. Attender: Pepito Griffiths MD [facility] 08/26/2020 12:00:00 AM EST [facility] ([facility]) Pepito Griffiths MD: [address], [place] [address], Ph. Attender: Pepito Griffiths MD [place] - [facility] 08/26/2020 12:00:00 AM EST [facility] ([facility]) Pepito Griffiths MD: [address], [address], [place] [address], Ph. Attender: Pepito Griffiths MD [place] [facility] 08/17/2020 12:00:00 AM EST [facility] ([facility]) Pepito Griffihts MD: [address], [address], [place] [address], Ph. Attender: Pepito Griffiths MD [place] [facility] 08/17/2020 12:00:00 AM EST [facility] ([facility]) Pepito Griffiths MD: [address], [address], [place] [address], Ph. Attender: Pepito Griffiths MD [place] [facility] 08/17/2020 12:00:00 AM EST [facility] ([facility]) Pepito Griffiths MD: [address], [place] [address], Ph. Attender: Pepito Griffiths MD [place] [facility] 08/17/2020 12:00:00 AM EST [facility] ([facility]) Christine Serna, CLOTHESPIN MACHINE OPERATOR: [address], [address], [place] [address], Ph. Attender: Christine DÍAZ [place] - [facility] 08/10/2020 12:00:00 AM EST ATHE NA ([facility]) Christine Serna, CLOTHESPIN MACHINE OPERATOR: [address], [address], [place] [address], Ph. Attender: Christine Serna [facility] - [facility] 08/10/2020 12:00:00 AM EST ATHE NA ([facility]) Christine Serna, CLOTHESPIN MACHINE OPERATOR: [address], [place] [address], Ph. Attender: Christine Serna [facility] - [facility] 08/10/2020 12:00:00 AM EST ATHE NA ([facility]) Christine Serna, CLOTHESPIN MACHINE OPERATOR: [address], [place] [address], Ph. Attender: Christine Serna [facility] - [facility] 08/10/2020 12:00:00 AM EST ATHE NA ([facility]) Christine Serna, CLOTHESPIN MACHINE OPERATOR: [address], [place] [address], Ph. Attender: Christine Serna [facility] - [facility] 08/10/2020 12:00:00 AM EST ATHE NA ([facility]) Pepito Griffiths MD: [address], [place] [address], Ph. Attender: Pepito Griffiths MD [place] [facility] 07/29/2020 12:00:00 AM EST [facility] ([facility]) Pepito Griffiths MD: [address], [place] [address], Ph. Attender: Pepito Griffiths MD [place] [facility] 07/29/2020 12:00:00 AM EST [facility] ([facility]) Pepito Griffiths MD: [address], [address], [place] [address], Ph. Attender: Pepito Griffiths MD [place] [facility] 07/29/2020 12:00:00 AM EST [facility] ([facility]) Pepito Griffiths MD: [address], [address], [place] [address], Ph. Attender: Pepito Griffiths MD [place] [facility] 07/29/2020 12:00:00 AM EST [facility] ([facility]) Pepito Griffiths MD: [address], [address], [place] [address], Ph. Attender: Pepito Griffiths MD [place] [facility] 07/29/2020 12:00:00 AM EST [facility] ([facility]) Pepito Griffiths MD: [address], [address], [place] [address], Ph. Attender: Pepito Griffiths MD [place] [facility] 07/29/2020 12:00:00 AM EST [facility] ([facility]) Pepito Griffiths MD: [address], [address], [place] [address], Ph. Attender: Pepito VENTURA - [facility] 07/15/2020 12:00:00 AM EDT [facility] ([facility]) Pepito Griffiths MD: [address], [address], [place] [address], Ph. Attender: Pepito VENTURA - [facility] 07/15/2020 12:00:00 AM EDT [facility] ([facility]) Pepito Griffiths MD: [address], [address], [place] [address], Ph. Attender: Pepito Griffiths MD [place] [facility] 07/15/2020 12:00:00 AM EDT [facility] ([facility]) Pepito Griffiths MD: [address], [address], [place] [address], Ph. Attender: Pepito Griffiths MD [place] [facility] 07/15/2020 12:00:00 AM EDT [facility] ([facility]) Pepito Griffiths MD: [address], [address], [place] [address], Ph. Attender: Pepito Griffiths MD [place] [facility] 07/15/2020 12:00:00 AM EDT [facility] ([facility]) Pepito Griffiths MD: [address], [address], [place] [address], Ph. Attender: Pepito VENTURA - [facility] 07/15/2020 12:00:00 AM EDT [facility] ([facility]) Pepito Griffiths MD: [address], [address], [place] [address], Ph. Attender: Pepito VENTURA - [facility] 07/15/2020 12:00:00 AM EDT [facility] ([facility]) Pepito Griffiths MD: [address], [address], [place] [address], Ph. Attender: Pepito VENTURA - [facility] 07/01/2020 12:00:00 AM EDT [facility] ([facility]) Pepito Griffiths MD: [address], [address], [place] [address], Ph. Attender: Pepito Griffiths MD [place] [facility] 07/01/2020 12:00:00 AM EDT [facility] ([facility]) Pepito Griffiths MD: [address], [address], [place] [address], Ph. Attender: Pepito VENTURA - [facility] 07/01/2020 12:00:00 AM EDT [facility] ([facility]) Pepito Griffiths MD: [address], [place] [address], Ph. Attender: Pepito Griffiths MD [place] [facility] 07/01/2020 12:00:00 AM EDT [facility] ([facility]) Pepito Griffiths MD: [address], [address], [place] [address], Ph. Attender: Pepito Griffiths MD [place] - [facility] 07/01/2020 12:00:00 AM EDT [facility] ([facility]) Pepito Griffiths MD: [address], [place] [address], Ph. Attender: Pepito VENTURA - [facility] 07/01/2020 12:00:00 AM EDT [facility] ([facility]) Pepito Griffiths MD: [address], [place] [address], Ph. Attender: Pepito Griffiths MD [place] - [facility] 07/01/2020 12:00:00 AM EDT [facility] ([facility]) Pepito Griffiths MD: [address], [place] [address], Ph. Attender: Pepito Griffiths MD [place] - [facility] 07/01/2020 12:00:00 AM EDT [facility] ([facility]) Christine Serna, CLOTHESPIN MACHINE OPERATOR: [address], [place] [address], Ph. Attender: Christine Serna [facility] - [facility] 06/24/2020 12:00:00 AM EDT ATHE NA ([facility]) Christine Serna, CLOTHESPIN MACHINE OPERATOR: [address], [place] [address], Ph. Attender: Christine Serna [facility] 06/24/2020 12:00:00 AM EDT ATHE NA ([facility]) Christine Serna, CLOTHESPIN MACHINE OPERATOR: [address], [place] [address], Ph. Attender: Christine Serna [facility] 06/24/2020 12:00:00 AM EDT ATHE NA ([facility]) Christine Serna, CLOTHESPIN MACHINE OPERATOR: [address], [place] [address], Ph. Attender: Christine Serna [facility] 06/24/2020 12:00:00 AM EDT ATHE NA ([facility]) Christine Serna, CLOTHESPIN MACHINE OPERATOR: [address], [place] [address], Ph. Attender: Christine Serna [facility] 06/24/2020 12:00:00 AM EDT ATHE NA ([facility]) Christine Serna, CLOTHESPIN MACHINE OPERATOR: [address], [address], [place] [address], Ph. Attender: Christine Serna [facility] 06/24/2020 12:00:00 AM EDT ATHE NA ([facility]) Christine Serna, CLOTHESPIN MACHINE OPERATOR: [address], [address], [place] [address], Ph. Attender: Christine Poppybraydenlaura [facility] 06/24/2020 12:00:00 AM EDT ATHE NA ([facility]) Christine Serna, CLOTHESPIN MACHINE OPERATOR: [address], [place] [address], Ph. Attender: Christine Poppybraydenlaura [facility] - [facility] 06/24/2020 12:00:00 AM EDT ATHE NA ([facility]) Christine Serna, CLOTHESPIN MACHINE OPERATOR: [address], [address], [place] [address], Ph. Attender: Christine Kareem [facility] 05/13/2020 12:00:00 AM EDT ATHE NA ([facility]) Christine Serna, CLOTHESPIN MACHINE OPERATOR: [address], [address], [place] [address], Ph. Attender: Christine Kareem [facility] 05/13/2020 12:00:00 AM EDT ATHE NA ([facility]) Christine Serna, CLOTHESPIN MACHINE OPERATOR: [address], [address], [place] [address], Ph. Attender: Christine Serna [facility] - [facility] 05/13/2020 12:00:00 AM EDT ATHE NA ([facility]) Christine Serna, CLOTHESPIN MACHINE OPERATOR: [address], [place] [address], Ph. Attender: Christine Serna [facility] - [facility] 05/13/2020 12:00:00 AM EDT ATHE NA ([facility]) Christine Serna, CLOTHESPIN MACHINE OPERATOR: [address], [place] [address], Ph. Attender: Christine Serna [facility] - [facility] 05/13/2020 12:00:00 AM EDT ATHE NA ([facility]) Christine Serna, CLOTHESPIN MACHINE OPERATOR: [address], [place] [address], Ph. Attender: Christine Serna [facility] - [facility] 05/13/2020 12:00:00 AM EDT ATHE NA ([facility]) Christine Serna, CLOTHESPIN MACHINE OPERATOR: [address], [place] [address], Ph. Attender: Christine Serna [facility] - [facility] 05/13/2020 12:00:00 AM EDT ATHE NA ([facility]) Christine Serna, CLOTHESPIN MACHINE OPERATOR: [address], [place] [address], Ph. Attender: Christine Serna [facility] - [facility] 05/13/2020 12:00:00 AM EDT ATHE NA ([facility]) Christine Rashid Kareem, CLOTHESPIN MACHINE OPERATOR: [address], [address], [place] [address], Ph. Attender: Christine DÍAZ [place] - [facility] 05/13/2020 12:00:00 AM EDT ATHE NA ([facility]) Pepito Griffiths MD: [address], [address], [place] [address], Ph. Attender: Pepito Griffiths MD [place] - [facility] 04/28/2020 12:00:00 AM EDT [facility] ([facility]) Pepito Griffiths MD: [address], [address], [place] [address], Ph. Attender: ePpito Griffiths MD [place] - [facility] 04/28/2020 12:00:00 AM EDT [facility] ([facility]) Pepito Griffiths MD: [address], [address], [place] [address], Ph. Attender: Pepito Griffiths MD [place] - [facility] 04/28/2020 12:00:00 AM EDT [facility] ([facility]) Pepito Griffiths MD: [address], [address], [place] [address], Ph. Attender: Pepito Griffiths MD [place] - [facility] 04/28/2020 12:00:00 AM EDT [facility] ([facility]) Pepito Griffiths MD: [address], [address], [place] [address], Ph. Attender: Pepito Griffiths MD [place] - [facility] 04/28/2020 12:00:00 AM EDT [facility] ([facility]) Pepito Griffiths MD: [address], [address], [place] [address], Ph. Attender: Pepito Griffiths MD [place] - [facility] 04/28/2020 12:00:00 AM EDT [facility] ([facility]) Pepito Griffiths MD: [address], [address], [place] [address], Ph. Attender: Pepito VENTURA - [facility] 04/28/2020 12:00:00 AM EDT [facility] ([facility]) Pepito Griffiths MD: [address], [address], [place] [address], Ph. Attender: Pepito VENTURA - [facility] 04/28/2020 12:00:00 AM EDT [facility] ([facility]) Pepito Griffiths MD: [address], [address], [place] [address], Ph. Attender: Pepito VENTURA - [facility] 04/28/2020 12:00:00 AM EDT [facility] ([facility]) Pepito Griffiths MD: [address], [place] [address], Ph. Attender: Pepito Griffiths MD [place] - [facility] 04/28/2020 12:00:00 AM EDT [facility] ([facility]) Outpatient Attender: George Walter MD 04/22 01:57:00 PM EDT - 04/22/2020 02:57:00 PM EDT [facility] Patient discharged. Christine Serna, CLOTHESPIN MACHINE OPERATOR: [address], [address], [place] [address], Ph. Attender: Christine DESHPANDEP [place] - [facility] 04/06/2020 12:00:00 AM EDT ATHE NA ([facility]) Christine Serna, CLOTHESPIN MACHINE OPERATOR: [address], [place] [address], Ph. Attender: Christine Serna [facility] - [facility] 04/06/2020 12:00:00 AM EDT ATHE NA ([facility]) Christine Serna, CLOTHESPIN MACHINE OPERATOR: [address], [place] [address], Ph. Attender: Christine Serna [facility] - [facility] 04/06/2020 12:00:00 AM EDT ATHE NA ([facility]) Christine Serna, CLOTHESPIN MACHINE OPERATOR: [address], [place] [address], Ph. Attender: Christine Serna [facility] - [facility] 04/06/2020 12:00:00 AM EDT ATHE NA ([facility]) Christine Serna, CLOTHESPIN MACHINE OPERATOR: [address], [place] [address], Ph. Attender: Christine Serna [facility] - [facility] 04/06/2020 12:00:00 AM EDT ATHE NA ([facility]) Christine Serna, CLOTHESPIN MACHINE OPERATOR: [address], [place] [address], Ph. Attender: Christine Serna [facility] - [facility] 04/06/2020 12:00:00 AM EDT ATHE NA ([facility]) Christine Rashid Kareem, CLOTHESPIN MACHINE OPERATOR: [address], [address], [place] [address], Ph. Attender: Christine Serna [facility] - [facility] 04/06/2020 12:00:00 AM EDT ATHE NA ([facility]) Christine Serna, CLOTHESPIN MACHINE OPERATOR: [address], [address], [place] [address], Ph. Attender: Christine Serna [facility] - [facility] 04/06/2020 12:00:00 AM EDT ATHE NA ([facility]) Christine Serna, CLOTHESPIN MACHINE OPERATOR: [address], [place] [address], Ph. Attender: Christine Serna [facility] 04/06/2020 12:00:00 AM EDT ATHE NA ([facility]) Christine Serna, CLOTHESPIN MACHINE OPERATOR: [address], [place] [address], Ph. Attender: Christine Serna [facility] - [facility] 04/06/2020 12:00:00 AM EDT ATHE NA ([facility]) Christine Serna, CLOTHESPIN MACHINE OPERATOR: [address], [address], [place] [address], Ph. Attender: Christine Serna [facility] 04/06/2020 12:00:00 AM EDT ATHE NA ([facility]) Pepito Griffiths MD: [address], [place] [address], Ph. Attender: Pepito Griffiths MD [facility] 03/23/2020 12:00:00 AM EDT HONORIO ([facility]) Pepito Griffiths MD: [address], [address], [place] [address], Ph. Attender: Pepito Griffiths MD [place] - [facility] 03/23/2020 12:00:00 AM EDT HONORIO ([facility]) Pepito Griffiths MD: [address]59 [address], [address], [place] [address], Ph. Attender: Pepito Griffiths MD [place] - [facility] 03/23/2020 12:00:00 AM EDT HONORIO ([facility]) Pepito Griffiths MD: [address], [address], [place] [address], Ph. Attender: Pepito Griffiths MD [place] - [facility] 03/23/2020 12:00:00 AM EDT HONORIO ([facility]) Pepito Griffiths MD: [address], [address], [place] [address], Ph. Attender: Pepito Griffiths MD [place] - [facility] 03/23/2020 12:00:00 AM EDT HONORIO ([facility]) Pepito Griffiths MD: [address]645 [address], [address], [place] [address], Ph. Attender: Pepito Griffiths MD [place] - [facility] 03/23/2020 12:00:00 AM EDT HONORIO ([facility]) Pepito Griffiths MD: [address]695 [address], [address], [place] [address], Ph. Attender: Pepito VENTURA - [facility] 03/23/2020 12:00:00 AM EDT HONORIO ([facility]) Pepito Griffiths MD: [address]28 [address], [address], [place] [address], Ph. Attender: Pepito Griffiths MD [place] - [facility] 03/23/2020 12:00:00 AM EDT HONORIO ([facility]) Pepito Griffiths MD: [address]755 [address], [address], [place] [address], Ph. Attender: Pepito Griffiths MD [place] - [facility] 03/23/2020 12:00:00 AM EDT HONORIO ([facility]) Pepito Griffiths MD: [address]878 [address], [address], [place] [address], Ph. Attender: Pepito Griffiths MD [place] [facility] 03/23/2020 12:00:00 AM EDT HONORIO ([facility]) Pepito Griffiths MD: [address]66 [address], [address], [place] [address], Ph. Attender: Pepito Griffiths MD [place] - [facility] 03/23/2020 12:00:00 AM EDT HONORIO ([facility]) Pepito Griffiths MD: [address]63 [address], [address], [place] [address], Ph. Attender: Pepito Griffiths MD [place] - [facility] 03/23/2020 12:00:00 AM EDT HONORIO ([facility]) Christine Serna, CLOTHESPIN MACHINE OPERATOR: [address], [address], [place] [address], Ph. Attender: Christine DÍAZ [place] - [facility] 01/14/2020 12:00:00 AM EDT ATHE NA ([facility]) Christine Serna, CLOTHESPIN MACHINE OPERATOR: [address], [place] [address], Ph. Attender: Christine Serna [facility] - [facility] 01/14/2020 12:00:00 AM EDT ATHE NA ([facility]) Christine Serna, CLOTHESPIN MACHINE OPERATOR: [address], [place] [address], Ph. Attender: Christine Serna [facility] - [facility] 01/14/2020 12:00:00 AM EDT ATHE NA ([facility]) Christine Serna, CLOTHESPIN MACHINE OPERATOR: [address], [place] [address], Ph. Attender: Christine Serna [facility] - [facility] 01/14/2020 12:00:00 AM EDT ATHE NA ([facility]) Christine Serna, CLOTHESPIN MACHINE OPERATOR: [address], [place] [address], Ph. Attender: Christine Serna [facility] - [facility] 01/14/2020 12:00:00 AM EDT ATHE NA ([facility]) Christine Serna, CLOTHESPIN MACHINE OPERATOR: [address], [address], [place] [address], Ph. Attender: Christine Serna [facility] - [facility] 01/14/2020 12:00:00 AM EDT ATHE NA ([facility]) Christine Serna, CLOTHESPIN MACHINE OPERATOR: [address], [place] [address], Ph. Attender: Christine Serna [facility] - [facility] 01/14/2020 12:00:00 AM EDT ATHE NA ([facility]) Christine Serna, CLOTHESPIN MACHINE OPERATOR: [address], [place] [address], Ph. Attender: Christine Serna [facility] - [facility] 01/14/2020 12:00:00 AM EDT ATHE NA ([facility]) Christine Serna, CLOTHESPIN MACHINE OPERATOR: [address], [address], [place] [address], Ph. Attender: Christine Serna [facility] - [facility] 01/14/2020 12:00:00 AM EDT ATHE NA ([facility]) Christine Serna, CLOTHESPIN MACHINE OPERATOR: [address], [place] [address], Ph. Attender: Christine Serna [facility] - [facility] 01/14/2020 12:00:00 AM EDT ATHE NA ([facility]) Christine Serna, CLOTHESPIN MACHINE OPERATOR: [address], [place] [address], Ph. Attender: Christine Serna [facility] - [facility] 01/14/2020 12:00:00 AM EDT ATHE NA ([facility]) Christine Serna, CLOTHESPIN MACHINE OPERATOR: [address], [place] [address], Ph. Attender: Christine Serna [facility] - [facility] 01/14/2020 12:00:00 AM EDT ATHE NA ([facility]) Christinemisael Serna, CLOTHESPIN MACHINE OPERATOR: [address], [address], [place] [address], Ph. Attender: Christine Serna [facility] - [facility] - [facility] Office 01/14/2020 12:00:00 AM EDT EKTA GARCIA ([facility]) Outpatient Attender: Philipp Lester MD Physical Therapy 01/12/2020 0 9:30:00 AM EDT HARLEY ([facility] ) Christine Serna, CLOTHESPIN MACHINE OPERATOR: [address], [place] [address], Ph. Attender: Christine Serna [facility] - [facility] 12/31/2019 12:00:00 AM EDT HONORIO ([facility]) Christine Serna, CLOTHESPIN MACHINE OPERATOR: [address], [place] [address], Ph. Attender: Christine Serna [facility] - [facility] 12/31/2019 12:00:00 AM EDT HONORIO ([facility]) Christine Serna, CLOTHESPIN MACHINE OPERATOR: [address], [place] [address], Ph. Attender: Christine Serna [facility] - [facility] 12/31/2019 12:00:00 AM EDT HONORIO ([facility]) Christine Serna, CLOTHESPIN MACHINE OPERATOR: [address], [place] [address], Ph. Attender: Christine Serna [facility] 12/31/2019 12:00:00 AM EDT HONORIO ([facility]) Christine Serna, CLOTHESPIN MACHINE OPERATOR: [address], [place] [address], Ph. Attender: Christine Serna SOFTWARE PUBLISHER [place] - [facility] 12/31/2019 12:00:00 AM EDT HONORIO ([facility]) Christine Serna, CLOTHESPIN MACHINE OPERATOR: [address], [place] [address], Ph. Attender: Christine Serna SOFTWARE PUBLISHER [place] - [facility] 12/31/2019 12:00:00 AM EDT HONORIO ([facility]) Christine Serna, CLOTHESPIN MACHINE OPERATOR: [address], [place] [address], Ph. Attender: Christine Serna SOFTWARE PUBL[employer] [place] - [facility] 12/31/2019 12:00:00 AM EDT HONORIO ([facility]) Christine Serna, CLOTHESPIN MACHINE OPERATOR: [address], [place] [address], Ph. Attender: Christine Serna SOFTWARE PUBLISHER [place] - [facility] 12/31/2019 12:00:00 AM EDT HONORIO ([facility]) Christine Serna, CLOTHESPIN MACHINE OPERATOR: [address], [place] [address], Ph. Attender: Christine Serna SOFTWARE PUBLISHER [place] - [facility] 12/31/2019 12:00:00 AM EDT HONORIO ([facility]) Christine Serna, CLOTHESPIN MACHINE OPERATOR: [address], [place] [address], Ph. Attender: Christine Serna SOFTWARE PUBLISHER [place] - [facility] 12/31/2019 12:00:00 AM EDT HONORIO ([facility]) Christine Serna, CLOTHESPIN MACHINE OPERATOR: [address], [place] [address], Ph. Attender: Christine Serna [facility] 12/31/2019 12:00:00 AM EDT HONORIO ([facility]) Christine Serna, CLOTHESPIN MACHINE OPERATOR: [address], [place] [address], Ph. Attender: Christine Serna [facility] 12/31/2019 12:00:00 AM EDT HONORIO ([facility]) Christine Serna, CLOTHESPIN MACHINE OPERATOR: [address], [place] [address], Ph. Attender: Christine Serna [facility] 12/31/2019 12:00:00 AM EDT HONORIO ([facility]) Christine Serna, CLOTHESPIN MACHINE OPERATOR: [address], [place] [address], Ph. Attender: Christine Serna [facility] 12/31/2019 12:00:00 AM EDT HONORIO ([facility]) Christine Serna, CLOTHESPIN MACHINE OPERATOR: [address], [place] [address], Ph. Attender: Christine Serna [facility] 12/31/2019 12:00:00 AM EDT HONORIO ([facility]) Outpatient Attender: Xavier Marroquin MD Physical Therapy 12/01/2019 0 8:30:00 AM EDT HARLEY ([facility] ) Pepito Griffiths MD: 35225 [facility] [address], [address], [place] [address], Ph. Attender: Pepito Griffiths MD [place] - [facility] 11/25/2019 12:00:00 AM EST HONORIO ([facility]) Pepito Griffiths MD: 74296 [address], [address], [place] [address], Ph. Attender: Pepito VENTURA - [facility] 11/25/2019 12:00:00 AM EST HONORIO ([facility]) Pepito Griffiths MD: [address]1936 [address], [address], [place] [address], Ph. Attender: Pepito VENTURA - [facility] 11/25/2019 12:00:00 AM EST HONORIO ([facility]) Pepito Griffiths MD: [address]01 [address], [address], [place] [address], Ph. Attender: Pepito VENTURA - [facility] 11/25/2019 12:00:00 AM EST HONORIO ([facility]) Pepito Griffiths MD: [address]333 [address], [address], [place] [address], Ph. Attender: Pepito VENTURA - [facility] 11/25/2019 12:00:00 AM EST HONORIO ([facility]) Pepito Griffiths MD: 13825 [address], [address], [place] [address], Ph. Attender: Pepito VENTURA - [facility] 11/25/2019 12:00:00 AM EST HONORIO ([facility]) Pepito Griffiths MD: 50771 [address], [address], [place] [address], Ph. Attender: Pepito VENTURA - [facility] 11/25/2019 12:00:00 AM EST HONORIO ([facility]) Pepito Griffiths MD: 27009 [address], [address], [place] [address], Ph. Attender: Pepito VENTURA - [facility] 11/25/2019 12:00:00 AM EST HONORIO ([facility]) Pepito Griffiths MD: 41338 [address], [address], [place] [address], Ph. Attender: Pepito VENTURA - [facility] 11/25/2019 12:00:00 AM EST HONORIO ([facility]) Pepito Griffiths MD: [address]19 [address], [place] [address], Ph. Attender: Pepito VENTURA - [facility] 11/25/2019 12:00:00 AM EST HONORIO ([facility]) Pepito Griffiths MD: 37722 [address], [address], [place] [address], Ph. Attender: Pepito VENTURA - [facility] 11/25/2019 12:00:00 AM EST HONORIO ([facility]) Pepito Griffiths MD: 36078 [address], [address], [place] [address], Ph. Attender: Pepito VENTURA - [facility] 11/25/2019 12:00:00 AM EST HONORIO ([facility]) Pepito Griffiths MD: 37280 [address], [address], [place] [address], Ph. Attender: Pepito VENTURA - [facility] 11/25/2019 12:00:00 AM EST HONORIO ([facility]) Pepito Griffiths MD: 44268 [address], [place] [address], Ph. Attender: Pepito Griffiths MD [place] - [facility] 11/25/2019 12:00:00 AM EST HONORIO ([facility]) Pepito Griffiths MD: [address], [address], [place] [address], Ph. Attender: Pepito Griffiths MD [place] - [facility] 11/25/2019 12:00:00 AM EST HONORIO ([facility]) Christine Serna, CLOTHESPIN MACHINE OPERATOR: [address]88 [address], [place] [address], Ph. Attender: Christine Serna [facility] - [facility] 10/28/2019 12:00:00 AM EST ATHE NA ([facility]) Christine Serna, CLOTHESPIN MACHINE OPERATOR: [address]151 [address], [place] [address], Ph. Attender: Christine Serna [facility] - [facility] 10/28/2019 12:00:00 AM EST ATHE NA ([facility]) Christine Serna, CLOTHESPIN MACHINE OPERATOR: [address]178 [address], [place] [address], Ph. Attender: Christine Serna [facility] - [facility] 10/28/2019 12:00:00 AM EST ATHE NA ([facility]) Christine Serna, CLOTHESPIN MACHINE OPERATOR: [address]66 [address], [place] [address], Ph. Attender: Christine Serna [facility] - [facility] 10/28/2019 12:00:00 AM EST ATHE NA ([facility]) Christine Serna, CLOTHESPIN MACHINE OPERATOR: [address], [place] [address], Ph. Attender: Christine Senra [facility] - [facility] 10/28/2019 12:00:00 AM EST ATHE NA ([facility]) Christine Serna, CLOTHESPIN MACHINE OPERATOR: 97176 [address], [place] [address], Ph. Attender: Christine Serna [facility] - [facility] 10/28/2019 12:00:00 AM EST ATHE NA ([facility]) Christine Serna, CLOTHESPIN MACHINE OPERATOR: [address]94 [address], [place] [address], Ph. Attender: Christine Serna [facility] 10/28/2019 12:00:00 AM EST ATHE NA ([facility]) Christine Serna, CLOTHESPIN MACHINE OPERATOR: 39554 [address], [place] [address], Ph. Attender: Christine Serna [facility] - [facility] 10/28/2019 12:00:00 AM EST ATHE NA ([facility]) Christine Serna, CLOTHESPIN MACHINE OPERATOR: [address]269 [address], [place] [address], Ph. Attender: Christine Serna [facility] - [facility] 10/28/2019 12:00:00 AM EST ATHE NA ([facility]) Christine Serna, CLOTHESPIN MACHINE OPERATOR: [address]01 [address], [address], [place] [address], Ph. Attender: Christine Serna [facility] - [facility] 10/28/2019 12:00:00 AM EST ATHE NA ([facility]) Christine Serna, CLOTHESPIN MACHINE OPERATOR: [address]19 [address], [address], [place] [address], Ph. Attender: Christine Serna [facility] - [facility] 10/28/2019 12:00:00 AM EST ATHE NA ([facility]) Christine Serna, CLOTHESPIN MACHINE OPERATOR: [address]953 [address], [address], [place] [address], Ph. Attender: Christine Serna [facility] 10/28/2019 12:00:00 AM EST ATHE NA ([facility]) Christine Serna, CLOTHESPIN MACHINE OPERATOR: [address]89 [address], [address], [place] [address], Ph. Attender: Christine Serna [facility] - [facility] 10/28/2019 12:00:00 AM EST ATHE NA ([facility]) Christine Serna, CLOTHESPIN MACHINE OPERATOR: [address]43 [address], [address], [place] [address], Ph. Attender: Christine Serna [facility] - [facility] 10/28/2019 12:00:00 AM EST ATHE NA ([facility]) Christine Serna, CLOTHESPIN MACHINE OPERATOR: [address]91 [address], [address], [place] [address], Ph. Attender: Christine Serna [facility] - [facility] 10/28/2019 12:00:00 AM EST ATHE NA ([facility]) Christine Serna, CLOTHESPIN MACHINE OPERATOR: [address]303 [address], [address], [place] [address], Ph. Attender: Christine Serna SOFTWARE PUBLISHER [place] - [facility] 10/28/2019 12:00:00 AM EST ATHE NA ([facility]) Pepito Griffiths MD: [address]68 [address], [place] [address], Ph. Attender: Pepito Griffiths MD [place] - [facility] 09/30/2019 12:00:00 AM EST HONORIO ([facility]) Pepito Griffiths MD: 39892 [address], [place] [address], Ph. Attender: Pepito Griffiths MD [place] - [facility] 09/30/2019 12:00:00 AM EST HONORIO ([facility]) Pepito Griffiths MD: 67335 [address], [place] [address], Ph. Attender: Pepito Griffiths MD [place] - [facility] 09/30/2019 12:00:00 AM EST HONORIO ([facility]) Pepito Griffiths MD: 21458 [address], [place] [address], Ph. Attender: Pepito Griffiths MD [place] - [facility] 09/30/2019 12:00:00 AM EST HONORIO ([facility]) Pepito Griffiths MD: 58592 [address], [place] [address], Ph. Attender: Pepito Griffiths MD [place] - [facility] 09/30/2019 12:00:00 AM EST HONORIO ([facility]) Pepito Griffiths MD: 53252 [address], [address], [place] [address], Ph. Attender: Pepito Griffiths MD [place] - [facility] 09/30/2019 12:00:00 AM EST HONORIO ([facility]) Pepito Griffiths MD: 71624 [address], [address], [place] [address], Ph. Attender: Pepito Griffiths MD [place] - [facility] 09/30/2019 12:00:00 AM EST HONORIO ([facility]) Pepito Griffiths MD: 29415 [address], [address], [place] [address], Ph. Attender: Pepito Griffiths MD [place] - [facility] 09/30/2019 12:00:00 AM EST HONORIO ([facility]) Pepito Griffiths MD: 52158 [address], [address], [place] [address], Ph. Attender: Pepito Griffiths MD [place] - [facility] 09/30/2019 12:00:00 AM EST HONORIO ([facility]) Pepito Griffiths MD: 35399 [address], [address], [place] [address], Ph. Attender: Pepito Griffiths MD [place] - [facility] 09/30/2019 12:00:00 AM EST HONORIO ([facility]) Pepito Griffiths MD: 05449 [address], [address], [place] [address], Ph. Attender: Pepito Griffiths MD [place] - [facility] 09/30/2019 12:00:00 AM EST [facility]ONORIO ([facility] [facility] Pepito Griffiths MD: [address], [place] [address], Ph. Attender: Pepito Griffiths MD [place] - [facility] 09/30/2019 12:00:00 AM EST HONORIO ([facility]) Pepito Griffiths MD: [address], [place] [address], Ph. Attender: Pepito Griffiths MD [place] - [facility] 09/30/2019 12:00:00 AM EST HONORIO ([facility]) Pepito Griffiths MD: [address], [place] [address], Ph. Attender: Pepito Griffiths MD [place] [facility] 09/30/2019 12:00:00 AM EST HONORIO ([facility]) Pepito Griffiths MD: [address], [place] [address], Ph. Attender: Pepito Griffiths MD [place] [facility] 09/30/2019 12:00:00 AM EST HONORIO ([facility]) Pepito Griffiths MD: [address], [place] [address], Ph. Attender: Pepito Griffiths MD [place] [facility] 09/30/2019 12:00:00 AM EST HONORIO ([facility]) Pepito Griffiths MD: [address], [place] [address], Ph. Attender: Pepito Griffiths MD [place] - [facility] 09/30/2019 12:00:00 AM EST HONORIO ([facility]) Medications Medication Brand Name Start Date Product Form Dose Route Admi nistrative Instructions Pharmacy Instructions Status Indications Reaction Description Data Source(s) Magnesium Hydroxide 80 MG/ML Oral Suspension Milk Of Margaret a 03/01/2020 12:00:00 AM EDT ORAL active M EDENT ([facility], ) Suprep Bowel Prep Kit Suprep Bowel Prep Kit 03/01/2020 12:00:00 AM EDT active MEDENT ([facility], ) gabapentin 300 MG Oral Capsule Gabapentin 12/01/2019 12:00:00 AM EDT ORAL completed MEDENT ([facility]) APAP as needed completed APAP HONORIO ([facility]) APAP as needed completed APAP HONORIO ([facility]) APAP as needed completed APAP HONORIO ([facility]) duloxetine 30 MG Delayed Release Oral Ca psule [Cymbalta] Cymbalta 30 mg capsule,delayed release Take 1 capsule every day by oral route. Cymbalta 30 mg capsule,delayed release Take 1 capsule every day by oral route. 1 capsule(s) completed duloxetine 30 MG Delay ed Release Oral Capsule [Cymbalta] HONORIO ([facility]) APAP as needed completed APAP HONORIO ([facility]) APAP as needed completed APAP HONORIO ([facility]) Insurance Providers Payer name Policy type / Coverage type Policy ID Covered alliance party ID Covered alliance party's relationship to parnell Policy Parnell Plan Information [place] [employer]Y [id number] COMMERCIAL GENERIC UNAVAILABLE SELF UNAVAILABLE SELF PAY ONLY [id number] PERSONAL PAY UNAVAILABLE SELF UNAVA ILABLE [place] [id number] 18 [id number] [place] F [id number] SELF [id number] [place] [employer] F [id number] SELF [id number] [place] F [id number] SELF [id number] [place] [employer] Commercial [id number] Self [id number] [place] [id number] 18 [id number] [facility] P [id number] SELF [id number] Problems, Conditions, and Diagnoses Code Display Name Description Problem Type Effective Dates Data Source(s) Z00.00 Encounter for general adult medical examination without abnormal findings ENCOUNTER FOR GENERAL ADULT MEDICAL EXAMINATION WITHOU T ABNORMAL FINDINGS Diagnosis 11/11/2020 11:35:00 AM [facility] [id number] Radiculopathy, thoracic region Radiculopathy, thoracic region Diagnosis 04/22/2020 01:57:00 PM EDT [facility] Surgeries/Procedures Procedure Description Date Indications Data Source(s) MRI Lower Extremity Any Joint 01/26/2020 12:00:00 AM E DT MEDENT ([facility]) MRI Lower Extremity Any Joint 01/26/2020 12:00:00 AM E DT MEDENT ([facility]) XR, thoracic spine 12/31/2019 12:00:00 AM EDT HONORIO ([facility]) X-Ray Spine Lumbosacral Bending Only 2 Or 3 Views 12/01/2019 12:00:00 AM EDT MEDENT ([facility]) Results ID Date Data Source [id number] 11/09/2020 02:06:59 PM [facility] PROCEDURES:PFT Report:Pre and Post Pulmo nary Function TestINDICATIONS:Z00.00.Measurements:FINDINGS:Comments:Race: or . Height 65 inches. Weight 180 lbs. 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 The test was performed in a sitting position. ProAir x 2puffs viaspacer device was given. Patient gave good consistent effort. Spirometry isacceptableand reproducible.Smoking Status:Patient claims to have never smokedPre- bronchodilator:FVC: 3.16 liters, which is 76 % of predicted.FEV1: 2.66 liters, which is 83 % of predicted.Ratio FEV1/FVC: 84 , which is 108 % of predicted.FEF 25-75: 2.92 liters, which is 101 % of predicted.Post-bronchodilator:FVC: 2.91 liters, which is 70 % of predicted and a -8 % change.FEV1: 2.63 liters, which is 82 % of predicted and a -1 % change.FEF 25-75: 4.11 liters, which is 142 % of predicted and a 40 % change.CONCLUSIONS:1. Spirometry meets ATS/ERS acceptability and repeatability criteria for FVC.2. Spirometry shows mild reduction in forced vital capacity.3. Spirometry shows mild reduction in FEV1.4. Spirometry shows no significant improvement in FEV1 after bronchodilator, nosignificant improvement in forced vital capacity after bronchodilator and noreversibility of airflow obstruction after bronchodilator.5. FEF 25-75 Normal FEF 25-75 and significant midflow response to bronchdilator.6. Flow Volume Loop. Normal flow volume loop.Study Date: [id number] Signed By: VAMSHI SCOTT, [facility]: 11/09/2020 14:06 Name Value Range Interpretation Code Description Data Brinda rce(s) Supporting Document(s) ID Date Data Source [id number] 08/23/2020 09:28:00 AM EST [facility] Name Value Range Interpretation Code Description Data Brinda rce(s) Supporting Document(s) SARS coronavirus 2 RNA [facility] This lab was ordered by [facility] [email or web address] Laboratory and reported by [facility]. ID Date Data Source [id number] 07/26/2020 08:45:00 AM EST [facility] Name Value Range Interpretation Code Description Data Brinda rce(s) Supporting Document(s) SARS coronavirus 2 RNA [facility] This lab was ordered by [facility] [employer] Laboratory and reported by [facility]. ID Date Data Source [id number] 04/23/2020 02:49:00 PM EDT [facility] [address] [place] [address] PHONE: [phone] FAX: [phone] Name .................. : ANITA APODACA Acct Number.................. : [id number] ROOM. ................. : MR Number ................... : [id number] Stay type ............. : O/P Discharge Date......... ... : 04/22/20 Admit Date ......... : 04/22/20 Admit Phys .................... : MIEDEMA DA Date of ....... : 1965 Family Phys ................... : UNKNOWN Phone .................. : [phone] Age ................................ : 54 Film# .................. .:[id number] Sex ................................. : M Unsigned transcriptions are preliminary reports and do not represent a medical or legal document MRI THORACIC SPINE W/O CONTRA [id number] COMPLETE:04/22/20 15:10 [facility] 10403 (SPINE PROC REASON: RADICULOPATHY MRI OF THE THORACIC SPINE WITHOUT CONTRAST: HISTORY: Radiculopathy. FINDINGS: There is no evidence for disc protrusion. The thoracic cord is normal in size and signal. The neural foramina are intact. The prevertebral soft tissues are normal. IMPRESSION: Normal examination. Electronically Reviewed and Signed By Jaime Morrow MD , 14:49, [facility] Transcribe Initials: DZ , Transcribe Date: 04/23/20 03:26, Dictation Date: Copy for: HANNAH Manning via fax Copy for: [facility] REC Page 1 of 1 Name Value Range Interpretation Code Description Data Brinda rce(s) Supporting Document(s) ID Date Data Source [id number] 02/05/2020 10:23:00 AM EDT MEDENT ([facility]) Name Value Range Interpretation Code Description Data Brinda rce(s) Supporting Document(s) Laboratory test finding (navigational concept) Laboratory test result MEDENT ([facility]) Procedure Vital Signs ID Date Data Source UNK Name Value Range Interpretation Code Description Data Source(s) Systolic blood pressure 149 mm[Hg] 149 mm[Hg] A THENA ([facility]) Body height 64 [in_i] 64 [in_i] HONORIO ([facility]) Diastolic blood pressure 105 mm[Hg] 105 mm[Hg] HONORIO ([facility]) Systolic blood pressure 144 mm[Hg] 144 mm[Hg] A THENA ([facility]) Body height 64 [in_i] 64 [in_i] HONORIO ([facility]) Diastolic blood pressure 92 mm[Hg] 92 mm[Hg] HONORIO ([facility]) Body height 64 [in_i] 64 [in_i] HONORIO ([facility]) Body height 64 [in_i] 64 [in_i] HONORIO ([facility]) Body height 64 [in_i] 64 [in_i] HONORIO ([facility]) Body height 64 [in_i] 64 [in_i] HONORIO ([facility]) Systolic blood pressure 153 mm[Hg] 153 mm[Hg] A THENA ([facility]) Body height 64 [in_i] 64 [in_i] HONORIO ([facility]) Diastolic blood pressure 99 mm[Hg] 99 mm[Hg] HONORIO ([facility]) Systolic blood pressure 153 mm[Hg] 153 mm[Hg] A THENA ([facility]) Body height 64 [in_i] 64 [in_i] HONORIO ([facility]) Diastolic blood pressure 99 mm[Hg] 99 mm[Hg] HONORIO ([facility]) Systolic blood pressure 153 mm[Hg] 153 mm[Hg] A THENA ([facility]) Body height 64 [in_i] 64 [in_i] HONORIO ([facility]) Diastolic blood pressure 99 mm[Hg] 99 mm[Hg] HONORIO ([facility]) Systolic blood pressure 153 mm[Hg] 153 mm[Hg] A THENA ([facility]) Body height 64 [in_i] 64 [in_i] HONORIO ([facility]) Diastolic blood pressure 99 mm[Hg] 99 mm[Hg] HONORIO ([facility]) Systolic blood pressure 153 mm[Hg] 153 mm[Hg] A THENA ([facility]) Body height 64 [in_i] 64 [in_i] HONORIO ([facility]) Diastolic blood pressure 99 mm[Hg] 99 mm[Hg] HONORIO ([facility]) Systolic blood pressure 134 mm[Hg] 134 mm[Hg] A THENA ([facility]) Body height 64 [in_i] 64 [in_i] HONORIO ([facility]) Diastolic blood pressure 89 mm[Hg] 89 mm[Hg] HONORIO ([facility]) Systolic blood pressure 134 mm[Hg] 134 mm[Hg] A THENA ([facility]) Body height 64 [in_i] 64 [in_i] HONORIO ([facility]) Diastolic blood pressure 89 mm[Hg] 89 mm[Hg] HONORIO ([facility]) Systolic blood pressure 134 mm[Hg] 134 mm[Hg] A THENA ([facility]) Body height 64 [in_i] 64 [in_i] HONORIO ([facility]) Diastolic blood pressure 89 mm[Hg] 89 mm[Hg] HONORIO ([facility]) Systolic blood pressure 134 mm[Hg] 134 mm[Hg] A THENA ([facility]) Body height 64 [in_i] 64 [in_i] HONORIO ([facility]) Diastolic blood pressure 89 mm[Hg] 89 mm[Hg] HONORIO ([facility]) Systolic blood pressure 134 mm[Hg] 134 mm[Hg] A THENA ([facility]) Body height 64 [in_i] 64 [in_i] HONORIO ([facility]) Diastolic blood pressure 89 mm[Hg] 89 mm[Hg] HONORIO ([facility]) Systolic blood pressure 134 mm[Hg] 134 mm[Hg] A THENA ([facility]) Body height 64 [in_i] 64 [in_i] HONORIO ([facility]) Diastolic blood pressure 89 mm[Hg] 89 mm[Hg] HONORIO ([facility]) Systolic blood pressure 134 mm[Hg] 134 mm[Hg] A THENA ([facility]) Body height 64 [in_i] 64 [in_i] HONORIO ([facility]) Diastolic blood pressure 89 mm[Hg] 89 mm[Hg] HONORIO ([facility]) Systolic blood pressure 134 mm[Hg] 134 mm[Hg] A THENA ([facility]) Body height 64 [in_i] 64 [in_i] HONORIO ([facility]) Diastolic blood pressure 89 mm[Hg] 89 mm[Hg] HONORIO ([facility]) Systolic blood pressure 134 mm[Hg] 134 mm[Hg] A THENA ([facility]) Body height 64 [in_i] 64 [in_i] HONORIO ([facility]) Diastolic blood pressure 90 mm[Hg] 90 mm[Hg] HONORIO ([facility]) Systolic blood pressure 134 mm[Hg] 134 mm[Hg] A THENA ([facility]) Body height 64 [in_i] 64 [in_i] HONORIO ([facility]) Diastolic blood pressure 90 mm[Hg] 90 mm[Hg] HONORIO ([facility]) Systolic blood pressure 134 mm[Hg] 134 mm[Hg] A THENA ([facility]) Body height 64 [in_i] 64 [in_i] HONORIO ([facility]) Diastolic blood pressure 90 mm[Hg] 90 mm[Hg] HONORIO ([facility]) Systolic blood pressure 134 mm[Hg] 134 mm[Hg] A THENA ([facility]) Body height 64 [in_i] 64 [in_i] HONORIO ([facility]) Diastolic blood pressure 90 mm[Hg] 90 mm[Hg] HONORIO ([facility]) Systolic blood pressure 134 mm[Hg] 134 mm[Hg] A THENA ([facility]) Body height 64 [in_i] 64 [in_i] HONORIO ([facility]) Diastolic blood pressure 90 mm[Hg] 90 mm[Hg] HONORIO ([facility]) Systolic blood pressure 134 mm[Hg] 134 mm[Hg] A THENA ([facility]) Body height 64 [in_i] 64 [in_i] HONORIO ([facility]) Diastolic blood pressure 90 mm[Hg] 90 mm[Hg] HONORIO ([facility]) Systolic blood pressure 134 mm[Hg] 134 mm[Hg] A THENA ([facility]) Body height 64 [in_i] 64 [in_i] HONORIO ([facility]) Diastolic blood pressure 90 mm[Hg] 90 mm[Hg] HONORIO ([facility]) Systolic blood pressure 134 mm[Hg] 134 mm[Hg] A THENA ([facility]) Body height 64 [in_i] 64 [in_i] HONORIO ([facility]) Diastolic blood pressure 90 mm[Hg] 90 mm[Hg] HONORIO ([facility]) Systolic blood pressure 134 mm[Hg] 134 mm[Hg] A THENA ([facility]) Body height 64 [in_i] 64 [in_i] HONORIO ([facility]) Diastolic blood pressure 90 mm[Hg] 90 mm[Hg] HONORIO ([facility]) Systolic blood pressure 122 mm[Hg] 122 mm[Hg] A THENA ([facility]) Body height 64 [in_i] 64 [in_i] HONORIO ([facility]) Diastolic blood pressure 82 mm[Hg] 82 mm[Hg] HONORIO ([facility]) Systolic blood pressure 122 mm[Hg] 122 mm[Hg] A THENA ([facility]) Body height 64 [in_i] 64 [in_i] HONORIO ([facility]) Diastolic blood pressure 82 mm[Hg] 82 mm[Hg] HONORIO ([facility]) Systolic blood pressure 122 mm[Hg] 122 mm[Hg] A THENA ([facility]) Body height 64 [in_i] 64 [in_i] HONORIO ([facility]) Diastolic blood pressure 82 mm[Hg] 82 mm[Hg] HONORIO ([facility]) Systolic blood pressure 122 mm[Hg] 122 mm[Hg] A THENA ([facility]) Body height 64 [in_i] 64 [in_i] HONORIO ([facility]) Diastolic blood pressure 82 mm[Hg] 82 mm[Hg] HONORIO ([facility]) Systolic blood pressure 122 mm[Hg] 122 mm[Hg] A THENA ([facility]) Body height 64 [in_i] 64 [in_i] HONORIO ([facility]) Diastolic blood pressure 82 mm[Hg] 82 mm[Hg] HONORIO ([facility]) Systolic blood pressure 122 mm[Hg] 122 mm[Hg] A THENA ([facility]) Body height 64 [in_i] 64 [in_i] HONORIO ([facility]) Diastolic blood pressure 82 mm[Hg] 82 mm[Hg] HONORIO ([facility]) Systolic blood pressure 122 mm[Hg] 122 mm[Hg] A THENA ([facility]) Body height 64 [in_i] 64 [in_i] HONORIO ([facility]) Diastolic blood pressure 82 mm[Hg] 82 mm[Hg] HONORIO ([facility]) Systolic blood pressure 122 mm[Hg] 122 mm[Hg] A THENA ([facility]) Body height 64 [in_i] 64 [in_i] HONORIO ([facility]) Diastolic blood pressure 82 mm[Hg] 82 mm[Hg] HONORIO ([facility]) Systolic blood pressure 122 mm[Hg] 122 mm[Hg] A THENA ([facility]) Body height 64 [in_i] 64 [in_i] HONORIO ([facility]) Diastolic blood pressure 82 mm[Hg] 82 mm[Hg] HONORIO ([facility]) Systolic blood pressure 122 mm[Hg] 122 mm[Hg] A THENA ([facility]) Body height 64 [in_i] 64 [in_i] HONORIO ([facility]) Diastolic blood pressure 82 mm[Hg] 82 mm[Hg] HONORIO ([facility]) Systolic blood pressure 122 mm[Hg] 122 mm[Hg] A THENA ([facility]) Body height 64 [in_i] 64 [in_i] HONORIO ([facility]) Diastolic blood pressure 82 mm[Hg] 82 mm[Hg] HONORIO ([facility]) Body height 64 [in_i] 64 [in_i] HONORIO ([facility]) Body height 64 [in_i] 64 [in_i] HONORIO ([facility]) Body height 64 [in_i] 64 [in_i] HONORIO ([facility]) Body height 64 [in_i] 64 [in_i] HONORIO ([facility]) Body height 64 [in_i] 64 [in_i] HONORIO ([facility]) Body height 64 [in_i] 64 [in_i] HONORIO ([facility]) Body height 64 [in_i] 64 [in_i] HONORIO ([facility]) Body height 64 [in_i] 64 [in_i] HONORIO ([facility]) Body height 64 [in_i] 64 [in_i] HONORIO ([facility]) Body height 64 [in_i] 64 [in_i] HONORIO ([facility]) Body height 64 [in_i] 64 [in_i] HONORIO ([facility]) Body height 64 [in_i] 64 [in_i] HONORIO ([facility]) Body weight 87.545 kg 87.545 [facility] Body mass index (BMI) [Ratio] 33.1 kg/m2 33.1 k g/m2 MEDENT ([facility], ) Body weight 193.00 [lb_av] 193.00 [lb_av] MEDEN T ([facility], ) Body height 64 [in_i] 64 [in_i] [facility] 5'4" Diastolic blood pressure 84 mm[Hg] 84 mm[Hg] MEDDAVID ([facility], ) Systolic blood pressure 128 mm[Hg] 128 mm[Hg] M EDDAVID ([facility], ) Body weight 187 [lb_av] 187 [lb_av] [facility] ([facility]) Systolic blood pressure 118 mm[Hg] 118 mm[Hg] A THENA ([facility]) Body mass index (BMI) [Ratio] 32.1 kg/m2 32.1 k g/m2 HONORIO ([facility]) Body height 64 [in_i] 64 [in_i] HONORIO ([facility]) Diastolic blood pressure 84 mm[Hg] 84 mm[Hg] HONORIO ([facility]) Body weight 187 [lb_av] 187 [lb_av] [facility]ON[facility]IO ([facility]) Systolic blood pressure 118 mm[Hg] 118 mm[Hg] A THENA ([facility]) Body mass index (BMI) [Ratio] 32.1 kg/m2 32.1 k g/m2 HONORIO ([facility]) Body height 64 [in_i] 64 [in_i] HONORIO ([facility]) Diastolic blood pressure 84 mm[Hg] 84 mm[Hg] HONORIO ([facility]) Body weight 187 [lb_av] 187 [lb_av] [facility]ON[facility]IO ([facility]) Systolic blood pressure 118 mm[Hg] 118 mm[Hg] A THENA ([facility]) Body mass index (BMI) [Ratio] 32.1 kg/m2 32.1 k g/m2 HONORIO ([facility]) Body height 64 [in_i] 64 [in_i] HONORIO ([facility]) Diastolic blood pressure 84 mm[Hg] 84 mm[Hg] HONORIO ([facility]) Body weight 187 [lb_av] 187 [lb_av] [facility] ([facility]) Systolic blood pressure 118 mm[Hg] 118 mm[Hg] A THENA ([facility]) Body mass index (BMI) [Ratio] 32.1 kg/m2 32.1 k g/m2 HONORIO ([facility]) Body height 64 [in_i] 64 [in_i] HONORIO ([facility]) Diastolic blood pressure 84 mm[Hg] 84 mm[Hg] HONORIO ([facility]) Body weight 187 [lb_av] 187 [lb_av] [facility]ON[facility] ([facility]) Systolic blood pressure 118 mm[Hg] 118 mm[Hg] A THENA ([facility]) Body mass index (BMI) [Ratio] 32.1 kg/m2 32.1 k g/m2 HONORIO ([facility]) Body height 64 [in_i] 64 [in_i] HONORIO ([facility]) Diastolic blood pressure 84 mm[Hg] 84 mm[Hg] HONORIO ([facility]) Body weight 187 [lb_av] 187 [lb_av] [facility] [facility] Systolic blood pressure 118 mm[Hg] 118 mm[Hg] A THENA ([facility]) Body mass index (BMI) [Ratio] 32.1 kg/m2 32.1 k g/m2 HONORIO ([facility]) Body height 64 [in_i] 64 [in_i] HONORIO ([facility]) Diastolic blood pressure 84 mm[Hg] 84 mm[Hg] HONORIO ([facility]) Body weight 187 [lb_av] 187 [lb_av] HONORIO ([facility]) Systolic blood pressure 118 mm[Hg] 118 mm[Hg] A THENA ([facility]) Body mass index (BMI) [Ratio] 32.1 kg/m2 32.1 k g/m2 HONORIO ([facility]) Body height 64 [in_i] 64 [in_i] HONORIO ([facility]) Diastolic blood pressure 84 mm[Hg] 84 mm[Hg] HONORIO ([facility]) Body weight 187 [lb_av] 187 [lb_av] HONORIO ([facility]) Systolic blood pressure 118 mm[Hg] 118 mm[Hg] A THENA ([facility]) Body mass index (BMI) [Ratio] 32.1 kg/m2 32.1 k g/m2 HONORIO ([facility]) Body height 64 [in_i] 64 [in_i] HONORIO ([facility]) Diastolic blood pressure 84 mm[Hg] 84 mm[Hg] HONORIO ([facility]) Body weight 187 [lb_av] 187 [lb_av] HON[facility]IO ([facility]) Systolic blood pressure 118 mm[Hg] 118 mm[Hg] A THENA ([facility]) Body mass index (BMI) [Ratio] 32.1 kg/m2 32.1 k g/m2 HONORIO ([facility]) Body height 64 [in_i] 64 [in_i] HONORIO ([facility]) Diastolic blood pressure 84 mm[Hg] 84 mm[Hg] HONORIO ([facility]) Body weight 187 [lb_av] 187 [lb_av] HONORIO ([facility]) Systolic blood pressure 118 mm[Hg] 118 mm[Hg] A THENA ([facility]) Body mass index (BMI) [Ratio] 32.1 kg/m2 32.1 k g/m2 HONORIO ([facility]) Body height 64 [in_i] 64 [in_i] HONORIO ([facility]) Diastolic blood pressure 84 mm[Hg] 84 mm[Hg] HONORIO ([facility]) Body weight 187 [lb_av] 187 [lb_av] [facility]ON[facility]IO ([facility]) Systolic blood pressure 118 mm[Hg] 118 mm[Hg] A THENA ([facility]) Body mass index (BMI) [Ratio] 32.1 kg/m2 32.1 k g/m2 HONORIO ([facility]) Body height 64 [in_i] 64 [in_i] HONORIO ([facility]) Diastolic blood pressure 84 mm[Hg] 84 mm[Hg] HONORIO ([facility]) Body weight 187 [lb_av] 187 [lb_av] HON[facility]IO ([facility]) Systolic blood pressure 118 mm[Hg] 118 mm[Hg] A THENA ([facility]) Body mass index (BMI) [Ratio] 32.1 kg/m2 32.1 k g/m2 HONORIO ([facility]) Body height 64 [in_i] 64 [in_i] HONORIO ([facility]) Diastolic blood pressure 84 mm[Hg] 84 mm[Hg] HONORIO ([facility]) Body weight 187 [lb_av] 187 [lb_av] [facility]ON[facility]IO ([facility]) Systolic blood pressure 118 mm[Hg] 118 mm[Hg] A THENA ([facility]) Body mass index (BMI) [Ratio] 32.1 kg/m2 32.1 k g/m2 HONORIO ([facility]) Body height 64 [in_i] 64 [in_i] HONORIO ([facility]) Diastolic blood pressure 84 mm[Hg] 84 mm[Hg] HONORIO ([facility]) Body mass index (BMI) [Ratio] 31.4 kg/m2 31.4 k g/m2 MEDENT ([facility]) Body weight 183.00 [lb_av] 183.00 [lb_av] MEDEN T ([facility]) Body height 64 [in_i] 64 [in_i] MEDENT ([facility]) 5'4" Body temperature 97.8 [degF] 97.8 [degF] MEDENT ([facility]) Body height 64 [in_i] 64 [in_i] HONORIO ([facility]) Body height 64 [in_i] 64 [in_i] HONORIO ([facility]) Body height 64 [in_i] 64 [in_i] HONORIO ([facility]) Body height 64 [in_i] 64 [in_i] HONORIO ([facility]) Body height 64 [in_i] 64 [in_i] HONORIO ([facility]) Body height 64 [in_i] 64 [in_i] HONORIO ([facility]) Body height 64 [in_i] 64 [in_i] HONORIO ([facility]) Body height 64 [in_i] 64 [in_i] HONORIO ([facility]) Body height 64 [in_i] 64 [in_i] HONORIO ([facility]) Body height 64 [in_i] 64 [in_i] HONORIO ([facility]) Body height 64 [in_i] 64 [in_i] HONORIO ([facility]) Body height 64 [in_i] 64 [in_i] HONORIO ([facility]) Body height 64 [in_i] 64 [in_i] HONORIO ([facility]) Body height 64 [in_i] 64 [in_i] HONORIO ([facility]) Body mass index (BMI) [Ratio] 31.2 kg/m2 31.2 k g/m2 MEDENT ([facility]) Body weight 187.25 [lb_av] 187.25 [lb_av] MEDEN T ([facility]) Body height 65 [in_i] 65 [in_i] MEDENT ([facility]) 5'5" Body temperature 97.8 [degF] 97.8 [degF] MEDENT ([facility] ) Systolic blood pressure 157 mm[Hg] 157 mm[Hg] A THENA ([facility]) Body height 64 [in_i] 64 [in_i] HONORIO ([facility]) Diastolic blood pressure 84 mm[Hg] 84 mm[Hg] HONORIO ([facility]) Systolic blood pressure 157 mm[Hg] 157 mm[Hg] A THENA ([facility]) Body height 64 [in_i] 64 [in_i] HONORIO ([facility]) Diastolic blood pressure 84 mm[Hg] 84 mm[Hg] HONORIO ([facility]) Systolic blood pressure 157 mm[Hg] 157 mm[Hg] A THENA ([facility]) Body height 64 [in_i] 64 [in_i] HONORIO ([facility]) Diastolic blood pressure 84 mm[Hg] 84 mm[Hg] HONORIO ([facility]) Systolic blood pressure 157 mm[Hg] 157 mm[Hg] A THENA ([facility]) Body height 64 [in_i] 64 [in_i] HONORIO ([facility]) Diastolic blood pressure 84 mm[Hg] 84 mm[Hg] HONORIO ([facility]) Systolic blood pressure 157 mm[Hg] 157 mm[Hg] A THENA ([facility]) Body height 64 [in_i] 64 [in_i] HONORIO ([facility]) Diastolic blood pressure 84 mm[Hg] 84 mm[Hg] HONORIO ([facility]) Systolic blood pressure 157 mm[Hg] 157 mm[Hg] A THENA ([facility]) Body height 64 [in_i] 64 [in_i] HONORIO ([facility]) Diastolic blood pressure 84 mm[Hg] 84 mm[Hg] HONORIO ([facility]) Systolic blood pressure 157 mm[Hg] 157 mm[Hg] A THENA ([facility]) Body height 64 [in_i] 64 [in_i] HONORIO ([facility]) Diastolic blood pressure 84 mm[Hg] 84 mm[Hg] HONORIO ([facility]) Systolic blood pressure 157 mm[Hg] 157 mm[Hg] A THENA ([facility]) Body height 64 [in_i] 64 [in_i] HONORIO ([facility]) Diastolic blood pressure 84 mm[Hg] 84 mm[Hg] HONORIO ([facility]) Systolic blood pressure 157 mm[Hg] 157 mm[Hg] A THENA ([facility]) Body height 64 [in_i] 64 [in_i] HONORIO ([facility]) Diastolic blood pressure 84 mm[Hg] 84 mm[Hg] HONORIO ([facility]) Systolic blood pressure 157 mm[Hg] 157 mm[Hg] A THENA ([facility]) Body height 64 [in_i] 64 [in_i] HONORIO ([facility]) Diastolic blood pressure 84 mm[Hg] 84 mm[Hg] HONORIO ([facility]) Systolic blood pressure 157 mm[Hg] 157 mm[Hg] A THENA ([facility]) Body height 64 [in_i] 64 [in_i] HONORIO ([facility]) Diastolic blood pressure 84 mm[Hg] 84 mm[Hg] HONORIO ([facility]) Systolic blood pressure 157 mm[Hg] 157 mm[Hg] A THENA ([facility]) Body height 64 [in_i] 64 [in_i] HONORIO ([facility]) Diastolic blood pressure 84 mm[Hg] 84 mm[Hg] HONORIO ([facility]) Systolic blood pressure 157 mm[Hg] 157 mm[Hg] A THENA ([facility]) Body height 64 [in_i] 64 [in_i] HONORIO ([facility]) Diastolic blood pressure 84 mm[Hg] 84 mm[Hg] HONORIO ([facility]) Systolic blood pressure 157 mm[Hg] 157 mm[Hg] A THENA ([facility]) Body height 64 [in_i] 64 [in_i] HONORIO ([facility]) Diastolic blood pressure 84 mm[Hg] 84 mm[Hg] HONORIO ([facility]) Systolic blood pressure 157 mm[Hg] 157 mm[Hg] A THENA ([facility]) Body height 64 [in_i] 64 [in_i] HONORIO ([facility]) Diastolic blood pressure 84 mm[Hg] 84 mm[Hg] HONORIO ([facility]) Systolic blood pressure 157 mm[Hg] 157 mm[Hg] A THENA ([facility]) Body height 64 [in_i] 64 [in_i] HONORIO ([facility]) Diastolic blood pressure 84 mm[Hg] 84 mm[Hg] HONORIO ([facility]) ID Date Data Source [id number] 11/11/2020 11:36:01 AM EST [facility] Name Value Range Interpretation Code Description Data Source(s) status [Interpretation] - Reported N N [facility] Patient Treatment Plan of Care Planned Activity Planned Date Details Description Data Source (s) duloxetine 30 MG Delayed Release Oral Capsule [Cymbalta] HONORIO ([facility]) APAP as needed HONORIO ([facility]) APAP as needed HONORIO ([facility]) APAP as needed HONORIO ([facility]) APAP as needed HONORIO ([facility]) APAP as needed HONORIO ([facility])
--- NOTE | 2020-11-19 17:26 | REPVR ---
PROCEDURE INFORMATION: Exam: CT Head Without Contrast Exam date and time: 11/19/2020 5:18 PM Age: 54 years old Clinical indication: Pain; Headache; Additional info: New onset headache/abnormal neuro exam TECHNIQUE: Imaging protocol: Computed tomography of the head without contrast. Radiation optimization: All CT scans at this facility use at least one of these dose optimization techniques: automated exposure control; mA and/or kV adjustment per patient size (includes targeted exams where dose is matched to clinical indication); or iterative reconstruction. Other technique: STROKE PROTOCOL was implemented. COMPARISON: No relevant prior studies available. FINDINGS: Brain: Normal. No hemorrhage. Unremarkable white matter. No mass effect. Cerebral ventricles: No hydrocephalus or evidence of increased intracranial pressure. Bones/joints: No acute abnormality. No acute fracture. Paranasal sinuses: Visualized sinuses are unremarkable. No fluid levels. Mastoid air cells: Visualized mastoid air cells are well aerated. Soft tissues: Unremarkable. IMPRESSION: No acute intracranial abnormality identified. ASSESSMENT: ASPECTS ([place] [facility] Early CT Score) is 10. Electronically signed by: Kit Saucedo On 11/19/2020 17:27:21 PM
[2020-11-19 17:49] LABS: BASO # 0.1 10^3/uL (0.0-0.2); BASO % 0.9 % (0.0-1.0); EOS # 0.2 10^3/uL (0.0-0.5); HEMATOCRIT 48.3 % (42.0-52.0); HEMOGLOBIN 16.2 g/dl (13.5-17.5); LYMPH # 1.9 10^3/uL (1.5-5.0); LYMPH % 23.8 % (24.0-44.0); MEAN CORPUSCULAR HEMOGLOBIN 30.7 pg (27.0-33.0); MEAN CORPUSCULAR HGB CONC 33.5 g/dl (32.0-36.5); MEAN CORPUSCULAR VOLUME 91.7 fl (80.0-96.0); MONO # 0.5 10^3/uL (0.0-0.8); MONO % 6.3 % (2.0-8.0); NEUTROPHILS # 5.3 10^3/uL (1.5-8.5); NEUTROPHILS % 66.6 % (36.0-66.0); PLATELET COUNT, AUTOMATED 270 10^3/uL (150-450); RED BLOOD COUNT 5.27 10^6/uL (4.30-6.10)
[2020-11-19 18:03] LABS: INR 0.86; PROTHROMBIN TIME 11.9 SECONDS (12.5-14.3)
[2020-11-19 18:04] LABS: PARTIAL THROMBOPLASTIN TIME 34.4 SECONDS (24.2-38.5)
[2020-11-19 18:29] LABS: BLOOD UREA NITROGEN 17 MG/DL (7-18); CALCIUM LEVEL 9.4 MG/DL (8.5-10.1); CARBON DIOXIDE LEVEL 28 MEQ/L (21-32); CHLORIDE LEVEL 105 MEQ/L (98-107); CK-MB VALUE MASS < 1.0 NG/ML (<3.6); CPK CREATINE PHOSPHOKINASE 93 U/L (39-308); CREATININE FOR GFR 1.07 MG/DL (0.70-1.30); GLOMERULAR FILTRATION RATE > 60.0 (>56); GLUCOSE, FASTING 124 MG/DL (70-100); MB/CK RELATIVE INDEX 1.08 (< OR =4); SODIUM LEVEL 139 MEQ/L (136-145); TROPONIN I < 0.02 NG/ML (< 0.10)
--- NOTE | 2020-11-19 21:12 | REPVR ---
PROCEDURE INFORMATION: Exam: MR Head Without Contrast Exam date and time: 11/19/2020 8:01 PM Age: 54 years old Clinical indication: Pain; Headache not specified; Additional info: Headache/abnormal neuro exam TECHNIQUE: Imaging protocol: MR of the head without contrast. COMPARISON: CT Head without contrast 11/19/2020 5:18 PM FINDINGS: Brain: No cerebral edema. No cerebral white matter disease. No restricted diffusion within the brain to suggest an acute infarct. There is a small focus of T1 hyperintensity along the right side of the tentorium. This is hypodense on the previous CT with a density of -3 HU. 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 Due to the absence of magnetic susceptibility, minimal subacute hemorrhage is considered less likely. There is mild prominence of sulci, compatible with atrophy. Cerebral ventricles: No ventriculomegaly. Pituitary gland and sella: There is increased T1 signal intensity posterolateral to the pituitary gland on the right side, which can be due to asymmetric prominence of the posterior pituitary bright spot, lipoma, or asymmetric fatty marrow within the posterior clinoid process. This is of indeterminate clinical significance. Bones/joints: There is a lamina papyracea fracture of the medial left orbital wall, consistent with prior orbital trauma. A small amount of T1 hyperintense fat signal intensity extends through this defect into the region of the left ethmoid air cells. Paranasal sinuses: Minimal mucosal thickening of scattered ethmoid air cells. Mastoid air cells: No mastoid effusion. Orbital cavity: Unremarkable. Soft tissues: Unremarkable, as visualized. IMPRESSION: 1. No acute infarct. 2. There is a lamina papyracea fracture of the medial left orbital wall, consistent with prior orbital trauma. 3. There is a small focus of T1 hyperintensity along the right side of the tentorium. 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 Due to the absence of magnetic susceptibility, minimal subacute hemorrhage is considered less likely. No acute hemorrhage is visualized in this region on CT images from the same day. 4. Mild atrophy. 5. Additional findings described above. Electronically signed by: Marcus Sagastume On 11/19/2020 21:12:32 PM
--- NOTE | 2020-11-19 21:46 | REPVR ---
PROCEDURE INFORMATION: Exam: MR Angiogram Head Without Contrast, Arteries Exam date and time: 11/19/2020 8:01 PM Age: 54 years old Clinical indication: Pain; Headache; Additional info: Headache/abnormal neuro exam TECHNIQUE: Imaging protocol: MR angiogram head without contrast. Exam focused on the arteries. COMPARISON: CT Head without contrast 11/19/2020 5:18 PM FINDINGS: ANTERIOR CIRCULATION: Right internal carotid artery: Mild stenosis of the petrous and clinoid segments of the right internal carotid artery. No occlusion. No aneurysm. Right middle cerebral artery: Moderate to severe stenosis of a proximal M2 segment of the right middle cerebral artery. No aneurysm. 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 See below. Left internal carotid artery: Mild stenosis of the petrous and clinoid segments of the left internal carotid artery. No occlusion. No aneurysm. Left middle cerebral artery: No occlusion or significant stenosis. No aneurysm. Left anterior cerebral artery: An azygos anterior cerebral artery is visualized. No aneurysm. POSTERIOR CIRCULATION: Right vertebral artery: Artifact limits evaluation of the proximal right vertebral artery, without occlusion. No significant stenosis or occlusion of the remaining intracranial right vertebral artery. Left vertebral artery: Artifact limits evaluation of the proximal left vertebral artery, without occlusion. No significant stenosis or occlusion of the remaining intracranial left vertebral artery. Basilar artery: No occlusion or significant stenosis. No aneurysm. Right posterior cerebral artery: No occlusion or significant stenosis. No aneurysm. Left posterior cerebral artery: No occlusion or significant stenosis. No aneurysm. IMPRESSION: 1. 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 2. Mild stenoses involving the petrous and clinoid segments of the internal carotid arteries bilaterally. 3. Additional findings described above. Electronically signed by: Marcus Sagastume On 11/19/2020 21:46:20 PM
[2020-11-19] MEDS ORDERED: ASPI81CH33 PO (22:24)
[2020-11-19] MEDS ORDERED: PLAV1TAB2 PO (22:24)
[2020-11-19] MEDS ORDERED: KETOROLAC 30 MG/ML 1ML VIAL IV ONE (22:25)
[2020-11-19] MEDS ORDERED: METOCLOPRAMIDE INJ 10MG/2ML VIAL (J2765 PER 1) IV ONE (22:25)
[2020-11-19 23:30] VITALS: BP 136/85
--- NOTE | 2020-11-20 07:45 | ECGEPIP ---
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
--- NOTE | 2020-11-21 07:08 | ED PDOC ---
Post-Departure Follow-Up radiology report faxed to [facility] Katelynn Aaron MD Nov 21, 2020 07:08
== END 2020-11-19 23:33 | disposition home or self-care (01) ==
LOC: M ED 15:57
DX: I66.01 Occlusion and stenosis of right middle cerebral artery (principal); H55.89 Other irregular eye movements; R51.9 Headache, unspecified; M53.1 Cervicobrachial syndrome; R29.810 Facial weakness; Z79.82 Long term (current) use of aspirin; Z79.899 Other long term (current) drug therapy; Z91.89 Other specified personal risk factors, not elsewhere classified; Z91.013 Allergy to seafood
CPT/HCPCS: 36415; 70450; 70544; 70551; 80047; 80048; 82550; 82553; 84484; 85025; 85610; 85730; 93005; 96374; 96375; 99284; J1885; J2765